=== PATIENT | male | born 1955 | race Caucasian/White ===

== ENCOUNTER 2021-11-07 19:03 | Inpatient (IN) ==
[2021-11-07] MEDS ORDERED: MULTI-VITAMIN INFUSION 10 ML, THIAMINE HCL 100 MG, FOLIC ACID 1 MG in SODIUM CHLORIDE 0... IV ONE (19:35)
--- NOTE | 2021-11-07 20:09 | XRay Report ---
XR chest 1V portable CLINICAL HISTORY: Atypical chest pain. COMPARISON STUDY: No previous studies for comparison. FINDINGS: Lung volumes are normal. Linear left basilar opacity suggests atelectasis. There is no pneu mothorax or pleural effusion. Cardiac size is at the upper limits of normal. Mediastinal contours are normal. There is no evidence for pulmonary edema. IMPRESSION: No acute cardiopulmonary findings. ACT 112: Negative or not required by law. Electronically signed by: Ronni Vazquez M.D. 11/07/2021 8:07 PM
[2021-11-07 20:26] LABS: Basophils # (auto) 0.02 K/uL (0-0.2); Basophils % (auto) 0.2 %; Eosinophils % (auto) 2.2 %; Hemoglobin 15.8 g/dL (14.0-18.0); Immature Granulocytes # (auto) 0.03 K/uL (0.00-0.02); Immature Granulocytes % (auto) 0.3 %; Lymphocytes # (auto) 1.03 K/uL (1.2-3.4); Lymphocytes % (auto) 11.1 %; Mean Corpuscular Hemoglobin 30.9 pg (25-34); Mean Corpuscular Hgb Conc 32.9 g/dL (32-36); Mean Corpuscular Volume 93.8 fL (80-100); Mean Platelet Volume 10.4 fL (7.4-10.4); Monocytes # (auto) 0.73 K/uL (0.11-0.59); Monocytes % (auto) 7.9 %; Neutrophils # (auto) 7.27 K/uL (1.4-6.5); Neutrophils % (auto) 78.3 %; Platelet Count 222 K/uL (130-400); RDW Coefficient of Variation 14.5 % (11.5-14.5); Red Blood Count 5.12 M/uL (4.7-6.1); White Blood Count 9.28 K/uL (4.8-10.8)
[2021-11-07 20:28] LABS: Prothrombin Time 10.9 Seconds (9.0-12.0)
[2021-11-07 20:34] LABS: Appearance Urine Cloudy (Clear); Bacteria Urine Automated Negative (Negative); Blood Urine 3+ (Negative); Color Urine Orange; Epithelial Cell Urine Auto >30 /lpf (0-5); Glucose Urine UA Negative (Negative); Ketones Urine 4+ (Negative); Leukocyte Esterase Urine 1+ (Negative); Nitrite Urine Positive (Negative); Protein Urine 2+ (Negative); RBC Urine Automated >30 /hpf (0-4); Specific Gravity Urine 1.035 (1.000-1.030); Urobilinogen Urine Positive (Negative); pH Urine 5.5 (4.5-7.5)
[2021-11-07] MEDS ORDERED: LORazepam 2 MG in SYRINGE 1 ML IV STA (20:35)
[2021-11-07] MEDS ORDERED: THIAMINE HCL 200 MG in SODIUM CHLORIDE 0.9% 50 ML IV STA (20:35)
[2021-11-07 20:39] LABS: Albumin Globulin Ratio 1.4 (0.9-2); Albumin Level 4.5 gm/dl (3.4-5.0); BUN Creatinine Ratio 43.2 (10-20); Bilirubin,Total 1.2 mg/dl (0.2-1.0); Calcium 9.9 mg/dl (8.5-10.1); Creatinine Clr Calc Pharmacy 114.5 ml/min; Est GFR (African American) 109.8 ml/min; Est GFR (Non-African American) 94.8 ml/min; Globulin 3.2 gm/dl (2.5-4.0); Magnesium 2.1 mg/dl (1.7-2.4); Potassium 3.6 mmol/L (3.5-5.1); Total Protein 7.7 gm/dl (6.0-8.3)
[2021-11-07 20:41] LABS: Troponin I High Sensitivity 3.6 pg/ml (0-20)
[2021-11-07 20:48] LABS: Bilirubin Urine 2+ (Negative)
[2021-11-07 21:18] LABS: Amphetamines+Metham, Urine Neg (Neg); Barbiturates, Urine Neg (Neg); Benzodiazepine, Urine Neg (Neg); Cocaine, Urine Neg (Neg); MDMA (Ecstacy), Urine Neg (Neg); Methadone, Urine Neg (Neg); Opiate, Urine Neg (Neg); Phencyclidine, Urine Neg (Neg)
[2021-11-07] MEDS ORDERED: OPTIRAY 320 100ml IV ONE (21:31)
[2021-11-07] MEDS ORDERED: cefTRIAXone SODIUM 2,000 MG/70 ML BAG IV STA (22:58)
--- NOTE | 2021-11-07 23:02 | Emergency Department Note ---
Impression & Plan Urinary retention, Urinary tract infection, Schizophrenia, Dehydration ED Provider Note NAME: FERNIE GASPAR AGE: 66 SEX: M ARRIVES VIA: Ambulance INFORMANT: Patient ED PROVIDER(S): Carlo Kramer MD CHIEF COMPLAINT: Weakness, referred. PLAN: Disposition: Admit MEDICAL DECISION MAKING: The patient is a 66-year-old gentleman with a past medical history of schizophrenia who presents to the emergency department from the [facility] for medical evaluation after presenting there appearing confused and diaphoretic following being accepted for psychiatric admission under 201 from [facility] where he presented initially for depression/worsening hallucinations and then transferred to the [facility] for [facility] treatment. During the patient's medical evaluation he was noted to have urinary retention and UTI and so Ortiz catheter was placed and was started on Bactrim. Thepatient is a poor historian regarding the details of his presentation. He denies any regular alcohol use. He denies any drug abuse including benzodiazepines. On arrival, the patient is fatigued/ill appearing, slightly diaphoretic, flat af fect. He is afebrile, HR 90-100s, and otherwise stable vital signs. He appears clinically dry. Has no focal neurologic deficits. EKG without overt acute ischemia. CXR negative for acute cardiopulmonary process. WBC, H/H, platelets wnl. Chemistry without acidosis. Lactate wnl. BUN/Cr > 40 c/w patient's clinically dry appearance. Electrolytes unremarkable. LFTs with Total bilirubin 1.2 and AST and ALT 56 and 57 respectively without prior for comparison. High-sensitivity troponin 3.6 wnl. Lipase wnl. Procalcitonin is not elevated. UA is c/w infection with Nitrites, WBCs, LE, and RBCs albeit with epitheleal cells and no bacteria, However insetting of being treated with Bactrim. Covid-19 RNA, NAAT negative. CT abd/pelvis demonstrates evidence of cystitis per preliminary [facility] report. Given patient's ill-appearance in the setting of his UTI, patient agrees with plan for admission for treatment before returning to the [facility]. Treatment initiated with CTX. Of note patient was given IVF with Banana bag and IV ativan for possible component of etoh withdrawal however patient continued to deny regular etoh use. Case was discussed with Dr. Altamirano, [facility] hospitalist who will evaluate the patient for admission. Triage Nursing notes reviewed and agree them. Prior medical records reviewed Vital Signs: reviewed and remarkable for tachycardia. Differential diagnosis: Infection, dehydration, metabolic abnormality, hypo/hyperglycemia, electrolyte disturbance, anemia, hypoxia, cardiac sources, intracerebral event, toxicologic, neurologic, as well as other pathologies. ER treatment provided: See below. Diagnostics interpreted by me: ECG: Sinus rhythm, 87 bpm, occasional pvcs, nonspecific ST and TWA, no overt ST elevation or depression. Cardiac Monitoring: An order for continuous cardiac monitoring was placed and demonstrated sinus rhythm, 87 bpm, occasional pvcs. Laboratory studies: See below Imaging studies: See below Preliminary Findings Only See Final Report For Complete Findings CT ABDOMEN & PELVIS With Contrast: Ortiz catheter within the bladder which appears thick-walled. Correlate for cystitis. No obstructive uropathy or evidence of pyelonephritis. Normal size of the prostate. Hepatic steatosis. Remainder of the organs are unremarkable. No acute abnormality along the GI tract. Radiologist: Robb Juan MD Study ready at 21:55 and initial results transmitted at 22:00 Consultation(s): Case was discussed with Dr. Altamirano, [facility] hospitalist who will evaluate the patient for admission. HPI: The patient is a 66-year-old gentleman with a past medical history of schizophrenia who presents to the emergency department from the [facility] for medical evaluation after presenting there appearing confused and diaphoretic following being accepted for psychiatric admission under 201 from [facility] where he presented initially for depression/worsening hallucinations and then transferred to the [facility] for [facility] treatment. During the patient's medical evaluation he was noted to have urinary retention and UTI and so Ortiz catheter was placed and was started on Bactrim. Thepatient is a poor historian regarding the details of his presentation. He denies any regular alcohol use. He denies any drug abuse including benzodiazepines. ROS: See above HPI for pertinent positives & negatives. A total of 10 systems reviewed and were otherwise negative. VITALS:See Below PHYSICAL EXAMINATION: GENERAL: Awake, alert, fatigued/ill-appearing, in no distress HENT: Normocephalic, atraumatic. Oropharynx with dry mucous membranes and otherwise unremarkable. EYES: Normal conjunctiva. Sclera non-icteric. NECK: Supple. No nuchal rigidity. FROM. No JVD. RESPIRATORY: Clear to auscultation. CARDIAC: Regular rate, normal rhythm. Extremities warm and well perfused. Pulses equal. ABDOMEN: Soft, non-distended. No tenderness to palpation. No rebound or guarding. No masses. RECTAL: Deferred. : Ortiz catheter in place. MUSCULOSKELETAL: Chest examination reveals no tenderness. The back is symmetri alexa on inspection without obvious abnormality. There is no CVA tenderness to palpation. No joint edema. LOWER EXTREMITIES: Calves are equal size bilaterally and non-tender. No edema. No discoloration. NEURO: Normal sensorium. No sensory or motor deficits noted. SKIN: Warm/diaphoretic. No rash or jaundice noted. PSYCH: Flat affect. 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 Beliefs That Will Affect Care: None Current Living Situation: Alone Other Information That Helps Us Care for You: No Feels Safe at Home: Yes Safety Concerns: Feels Safe At This Time Allergies Allergies Allergy/AdvReac Type Severity Reaction Status Date / Time No Known Allergies Allergy Verified 11/07/21 22:25 Home Meds Home Medications Medication Instructions Recorded Confirmed clozapine 100 mg tablet 200 mg PO 11/07/21 11/07/21 clozapine 50 mg tablet 50 mg PO QAM 11/07/21 11/07/21 folic acid 1 mg tablet 1 mg PO QAM 11/07/21 11/07/21 hydroxyzine HCl 50 mg tablet 50 mg PO QID PRN 11/07/21 11/07/21 mirtazapine 7.5 mg tablet 7.5 mg PO 11/07/21 11/07/21 multivitamin with folic acid 400 1 tab PO QAM 11/07/21 11/07/21 mcg tablet (Tab-A-Kimberley) simvastatin 20 mg tablet 40 mg PO 11/07/21 11/07/21 thiamine HCl (vitamin B1) 100 mg 100 mg PO QA 11/07/21 11/07/21 tablet venlafaxine 150 mg 300 mg PO QAM 11/07/21 11/07/21 capsule,extended release 24 hr Results & Data (ED) Vital Signs Vital Signs - 24 hr 11/07/21 19:15 11/07/21 19:57 11/07/21 20:00 Temperature 37.3 C Temperature Source Oral Pulse Rate 91 H Pulse Rate [Apical] 100 H Pulse Rhythm [Apical] Respiratory Rate 18 19 Respiratory Effort / Characteristics Respiratory Depth Blood Pressure 138/91 Blood Pressure [Right Arm] 147/78 H Blood Pressure Mean 106 Blood Pressure Mean [Right Arm] 101 Pulse Oximetry 95 95 98 Oxygen Delivery Method Room Air Room Air Room Air Sepsis Recent Fever Within 48 Hours No Sepsis New/Unexplained Change in Mental Status No Sepsis Action Taken by Nursing No Action Required 11/07/21 22:00 11/08/21 00:00 11/08/21 02:00 Temperature 36.0 C L Temperature Source Oral Pulse Rate Pulse Rate [Apical] 62 Pulse Rhythm [Apical] Regular Respiratory Rate 19 Respiratory Effort / Characteristics Non-Labored Non-Labored Non-Labored Respiratory Depth Normal Normal Normal Blood Pressure Blood Pressure [Right Arm] 115/78 Blood Pressure Mean Blood Pressure Mean [Right Arm] 90 Pulse Oximetry 98 Oxygen Delivery Method Room Air Sepsis Recent Fever Within 48 Hours Sepsis New/Unexplained Change in Mental Status Sepsis Action Taken by Nursing Laboratory Data Attestation: I reviewed the patient's lab results. Result diagrams: 11/07/21 19:50 11/07/21 19:50 Lab Results 11/07/21 11/07/21 11/07/21 Range/Units 19:50 19:50 19:50 WBC 9.28 (4.8-10.8) K/uL RBC 5.12 (4.7-6.1) M/uL Hgb 15.8 (14.0-18.0) g/dL Hct 48.0 (42-52) % MCV 93.8 (80-100) fL MCH 30.9 (25-34) pg MCHC 32.9 (32-36) g/dL RDW Std Deviation 50.0 H (36.4-46.3) fL RDW Coeff of Mai 14.5 (11.5-14.5) % Plt Count 222 (130-400) K/uL MPV 10.4 (7.4-10.4) fL Immature Gran % (Auto) 0.3 % Neut % (Auto) 78.3 % Lymph % (Auto) 11.1 % [place] % (Auto) 7.9 % Eos % (Auto) 2.2 % Baso % (Auto) 0.2 % Neut # (Auto) 7.27 H (1.4-6.5) K/uL Lymph # (Auto) 1.03 L (1.2-3.4) K/uL [place] # (Auto) 0.73 H (0.11-0.59) K/uL Eos # (Auto) 0.20 (0-0.5) K/uL Baso # (Auto) 0.02 (0-0.2) K/uL Immature Gran # (Auto) 0.03 H (0.00-0.02) K/uL PT 10.9 (9.0-12.0) Seconds INR 1.0 (0.9-1.1) Sodium 142 (136-145) mmol/L Potassium 3.6 (3.5-5.1) mmol/L Chloride 109 H (98-107) mmol/L Carbon Dioxide 20 L (21-32) mmol/L Anion Gap 13 H (3-11) BUN 32 H (6-23) mg/dl Creatinine 0.74 (0.6-1.4) mg/dl Est Cr Clr Drug Dosing 114.5 ml/min Est GFR ( Amer) 109.8 ml/min Est GFR (Non-Af Amer) 94.8 ml/min BUN/Creatinine Ratio 43.2 H (10-20) Glucose 102 H (70-99(Fasting)) mg/dl Lactate (0.4-2.0) mmol/L Calcium 9.9 (8.5-10.1) mg/dl Phosphorus 3.0 (2.5-4.9) mg/dl Magnesium 2.1 (1.7-2.4) mg/dl Total Bilirubin 1.2 H (0.2-1.0) mg/dl AST 56 H (13-39) U/L ALT 57 H (7-52) U/L Alkaline Phosphatase 39 (34-104) U/L Troponin I High Sens 3.6 (0-20) pg/ml Total Protein 7.7 (6.0-8.3) gm/dl Albumin 4.5 (3.4-5.0) gm/dl Globulin 3.2 (2.5-4.0) gm/dl Albumin/Globulin Ratio 1.4 (0.9-2) Lipase 17 (11-82) U/L Procalcitonin (0-0.5) ng/ml Urine Color Urine Appearance (Clear) Urine pH (4.5-7.5) Ur Specific [place] (1.000-1.030) Urine Protein (Negative) Urine Glucose (UA) (Negative) Urine Ketones (Negative) Urine Blood (Negative) Urine Nitrite (Negative) Urine Bilirubin (Negative) Urine Urobilinogen (Negative) Ur Leukocyte Esterase (Negative) Urine WBC (Auto) (0-5) /hpf Urine RBC (Auto) (0-4) /hpf U Hyaline Cast (Auto) (0-5) /lpf U Epithel Cells (Auto) (0-5) /lpf Urine Bacteria (Auto) (Negative) Urine Opiates Screen (Neg) Ur Methadone, Qual (Neg) Urine Barbiturates (Neg) Ur Phencyclidine (PCP) (Neg) U Amphetamin/Meth Scrn (Neg) MDMA (Ecstasy) Screen (Neg) U Benzodiazepines Scrn (Neg) Ur Cocaine Metabolite (Neg) U Marijuana (THC) Screen (Neg) Ethyl Alcohol mg/dL (<10.0) mg/dl SARS-CoV-2, RNA, NAAT (NEGATIVE) 11/07/21 11/07/21 11/07/21 Range/Units 19:50 19:50 19:50 WBC (4.8-10.8) K/uL RBC (4.7-6.1) M/uL Hgb (14.0-18.0) g/dL Hct (42-52) % MCV (80-100) fL MCH (25-34) pg MCHC (32-36) g/dL RDW Std Deviation (36.4-46.3) fL RDW Coeff of Mai (11.5-14.5) % Plt Count (130-400) K/uL MPV (7.4-10.4) fL Immature Gran % (Auto) % Neut % (Auto) % Lymph % (Auto) % [place] % (Auto) % Eos % (Auto) % Baso % (Auto) % Neut # (Auto) (1.4-6.5) K/uL Lymph # (Auto) (1.2-3.4) K/uL [place] # (Auto) (0.11-0.59) K/uL Eos # (Auto) (0-0.5) K/uL Baso # (Auto) (0-0.2) K/uL Immature Gran # (Auto) (0.00-0.02) K/uL PT (9.0-12.0) Seconds INR (0.9-1.1) Sodium (136-145) mmol/L Potassium (3.5-5.1) mmol/L Chloride (98-107) mmol/L Carbon Dioxide (21-32) mmol/L Anion Gap (3-11) BUN (6-23) mg/dl Creatinine (0.6-1.4) mg/dl Est Cr Clr Drug Dosing ml/min Est GFR ( Amer) ml/min Est GFR (Non-Af Amer) ml/min BUN/Creatinine Ratio (10-20) Glucose (70-99(Fasting)) mg/dl Lactate (0.4-2.0) mmol/L Calcium (8.5-10.1) mg/dl Phosphorus (2.5-4.9) mg/dl Magnesium (1.7-2.4) mg/dl Total Bilirubin (0.2-1.0) mg/dl AST (13-39) U/L ALT (7-52) U/L Alkaline Phosphatase (34-104) U/L Troponin I High Sens (0-20) pg/ml Total Protein (6.0-8.3) gm/dl Albumin (3.4-5.0) gm/dl Globulin (2.5-4.0) gm/dl Albumin/Globulin Ratio (0.9-2) Lipase (11-82) U/L Procalcitonin (0-0.5) ng/ml Urine Color Rhea Urine Appearance Cloudy A (Clear) Urine pH 5.5 (4.5-7.5) Ur Specific [place] 1.035 H (1.000-1.030) Urine Protein 2+ H (Negative) Urine Glucose (UA) Negative (Negative) Urine Ketones 4+ H (Negative) Urine Blood 3+ H (Negative) Urine Nitrite Positive A (Negative) Urine Bilirubin 2+ H (Negative) Urine Urobilinogen Positive H (Negative) Ur Leukocyte Esterase 1+ H (Negative) Urine WBC (Auto) 10-30 H (0-5) /hpf Urine RBC (Auto) >30 H (0-4) /hpf U Hyaline Cast (Auto) 5-10 H (0-5) /lpf U Epithel Cells (Auto) >30 H (0-5) /lpf Urine Bacteria (Auto) Negative (Negative) Urine Opiates Screen Neg (Neg) Ur Methadone, Qual Neg (Neg) Urine Barbiturates Neg (Neg) Ur Phencyclidine (PCP) Neg (Neg) U Amphetamin/Meth Scrn Neg (Neg) MDMA (Ecstasy) Screen Neg (Neg) U Benzodiazepines Scrn Neg (Neg) Ur Cocaine Metabolite Neg (Neg) U Marijuana (THC) Screen Neg (Neg) Ethyl Alcohol mg/dL < 10.0 (<10.0) mg/dl SARS-CoV-2, RNA, NAAT (NEGATIVE) 11/07/21 11/07/21 11/07/21 Range/Units 23:25 23:47 23:47 WBC (4.8-10.8) K/uL RBC (4.7-6.1) M/uL Hgb (14.0-18.0) g/dL Hct (42-52) % MCV (80-100) fL MCH (25-34) pg MCHC (32-36) g/dL RDW Std Deviation (36.4-46.3) fL RDW Coeff of Mai (11.5-14.5) % Plt Count (130-400) K/uL MPV (7.4-10.4) fL Immature Gran % (Auto) % Neut % (Auto) % Lymph % (Auto) % [place] % (Auto) % Eos % (Auto) % Baso % (Auto) % Neut # (Auto) (1.4-6.5) K/uL Lymph # (Auto) (1.2-3.4) K/uL [place] # (Auto) (0.11-0.59) K/uL Eos # (Auto) (0-0.5) K/uL Baso # (Auto) (0-0.2) K/uL Immature Gran # (Auto) (0.00-0.02) K/uL PT (9.0-12.0) Seconds INR (0.9-1.1) Sodium (136-145) mmol/L Potassium (3.5-5.1) mmol/L Chloride (98-107) mmol/L Carbon Dioxide (21-32) mmol/L Anion Gap (3-11) BUN (6-23) mg/dl Creatinine (0.6-1.4) mg/dl Est Cr Clr Drug Dosing ml/min Est GFR ( Amer) ml/min Est GFR (Non-Af Amer) ml/min BUN/Creatinine Ratio (10-20) Glucose (70-99(Fasting)) mg/dl Lactate 1.3 (0.4-2.0) mmol/L Calcium (8.5-10.1) mg/dl Phosphorus (2.5-4.9) mg/dl Magnesium (1.7-2.4) mg/dl Total Bilirubin (0.2-1.0) mg/dl AST (13-39) U/L ALT (7-52) U/L Alkaline Phosphatase (34-104) U/L Troponin I High Sens (0-20) pg/ml Total Protein (6.0-8.3) gm/dl Albumin (3.4-5.0) gm/dl Globulin (2.5-4.0) gm/dl Albumin/Globulin Ratio (0.9-2) Lipase (11-82) U/L Procalcitonin < 0.05 (0-0.5) ng/ml Urine Color Urine Appearance (Clear) Urine pH (4.5-7.5) Ur Specific [place] (1.000-1.030) Urine Protein (Negative) Urine Glucose (UA) (Negative) Urine Ketones (Negative) Urine Blood (Negative) Urine Nitrite (Negative) Urine Bilirubin (Negative) Urine Urobilinogen (Negative) Ur Leukocyte Esterase (Negative) Urine WBC (Auto) (0-5) /hpf Urine RBC (Auto) (0-4) /hpf U Hyaline Cast (Auto) (0-5) /lpf U Epithel Cells (Auto) (0-5) /lpf Urine Bacteria (Auto) (Negative) Urine Opiates Screen (Neg) Ur Methadone, Qual (Neg) Urine Barbiturates (Neg) Ur Phencyclidine (PCP) (Neg) U Amphetamin/Meth Scrn (Neg) MDMA (Ecstasy) Screen (Neg) U Benzodiazepines Scrn (Neg) Ur Cocaine Metabolite (Neg) U Marijuana (THC) Screen (Neg) Ethyl Alcohol mg/dL (<10.0) mg/dl SARS-CoV-2, RNA, NAAT NEGATIVE (NEGATIVE) Administered Medications Lactated Ringer's (Lr) 1,000 mls @ 80 mls/hr IV .[id number] ONE Stop: 11/08/21 11:48 Last Admin: 11/08/21 00:00 Dose: 80 mls/hr Documented by: [id number] Discontinued Medications Multivitamins 10 ml/ Thiamine HCl 100 mg/ Folic Acid 1 mg/Sodium Chloride 1,011.2 mls @ 1,011.2 mls/hr IV .Q1H ONE Stop: 11/07/21 20:34 Last Infusion: 11/07/21 21:05 Dose: 0 mls/hr Documented by: [id number] Admin: 11/07/21 20:03 Dose: 1,011.2 mls/hr Documented by: [id number] Thiamine HCl 200 mg/ Sodium (Chloride) 52 mls @ 208 mls/hr IV NOW STA Stop: 11/07/21 20:36 Last Infusion: 11/07/21 22:50 Dose: 0 mls/hr Documented by: [id number] Admin: 11/07/21 22:12 Dose: 208 mls/hr Documented by: [id number] Lorazepam 2 mg/ Syringe 2 mls @ 2 mls/min IV NOW STA Stop: 11/07/21 20:36 Last Admin: 11/07/21 20:40 Dose: 2 mls/min Documented by: [id number] Ceftriaxone Sodium (Rocephin) 2,000 mg in 70 mls @ 140 mls/hr IV NOW STA Stop: 11/07/21 23:27 Last Infusion: 11/08/21 01:15 Dose: 0 mls/hr Documented by: [id number] Admin: 11/08/21 00:39 Dose: 140 mls/hr Documented by: [id number] Cefepime HCl (Maxipime) 2,000 mg in 20 mls @ 5 mls/min IV NOW STA; Protocol Stop: 11/08/21 00:11 Last Admin: 11/08/21 00:39 Dose: 5 mls/min Documented by: [id number] Ioversol (Optiray 320 100ml) 95 ml IV ONCE ONE Stop: 11/07/21 21:32 Last Admin: 11/07/21 21:31 Dose: 95 ml Documented by: [id number] Imaging Data Radiologist's Impression: Chest X-Ray 11/07/21 19:34 XR chest 1V portable CLINICAL HISTORY: Atypical chest pain. COMPARISON STUDY: No previous studies for comparison. FINDINGS: Lung volumes are normal. Linear left basilar opacity suggests atelectasis. There is no pneumothorax or pleural effusion. Cardiac size is at the upper limits of normal. Mediastinal contours are normal. There is no evidence for pulmonary edema. IMPRESSION: No acute cardiopulmonary findings. ACT 112: Negative or not required by law. Electronically signed by: Ronni Vazquez M.D. 11/07/2021 8:07 PM Discharge Plan Visit Data Chief Complaint: Illness Discharge Problem: Urinary retention, Urinary tract infection, Schizophrenia, Dehydration Patient Disposition: Admitted As Inpatient Discharge Instructions Interventions: ED Discharge Assessment Last Done: 11/08/21 03:34 Discharge Problem: Urinary tract infection Qualifiers: Urinary tract infection type: site unspecified Hematuria presence: with hematuria Qualified Code(s): N39.0 - Urinary tract infection, site not specified Schizophrenia Qualifiers: Schizophrenia type: unspecified Qualified Code(s): F20.9 - Schizophrenia, unspecified
[2021-11-07] MEDS ORDERED: LACTATED RINGER'S 1,000 ML IV ONE (23:19)
[2021-11-08] MEDS ORDERED: CEFEPIME 2,000 MG/20 ML VIAL IV STA (00:08)
--- NOTE | 2021-11-08 02:37 | History & Physical Report ---
Date of Service November 08, 2021 Assessment & Plan (1) Complicated UTI (urinary tract infection): Plan: History urinary retention status post Ortiz catheter placement at [facility] ER No sepsis for now HTN, stable hyperlipidemia, statin Rx hx schizoaffective disorder, mood disorder - suboptimal, history medication compliance Alcohol abuse past tobacco abuse Med telemetry given propensity for alcohol withdrawal Urine CS, cefepime Urology consult Re: Urinary retention AWSS, DT precautions DVT Lovenox subcu Full code Text document was generated using dBMEDx voice recognition software. It may contain grammatical or spelling errors. Kindly contact undersigned for clarification of any documentation item in question. History of Present Illness Chief Complaint: Altered mental status as per records. Primary Care Provider: CRISSY Yan History obtained from patient and records. Medical history significant for HTN, hyperlipidemia, schizoaffective disorder, mood disorder, medication noncompliance, past tobacco abuse. Patient is a resident of [place], [place] brought to [facility] ER in [place], [place] 2 days ago by his daughter because of paranoia and command hallucinations. Patient has not been taking his psych meds for about 5 days as per daughter. Patient not drinking or eating as much. Patient denies suicidality. Patient complaint of urinary retention symptoms. Ortiz catheter placed at the ER. UA showed nitrites. Bactrim initiated for UTI. Patient subsequently transferred to the local [facility] for voluntary inpatient psychiatric care yesterday. Upon arrival at local psychiatric facility, patient noted to be confused and diaphoretic. Patient sent to ER for evaluation. IV ceftriaxone administered at the ER for UTI. Patient feels much clearer. Denies chest pain, shortness of breath, abdominal pain, flank pain, hematuria, fever, chills. No prior episodes of urine retention as per patient. Medical History as above Surgical History : Hernia repair Family History : Depression, DM Personal/Social history : Past tobacco abuse, ongoing alcohol use, prior work at a [employer] Allergies Allergy/AdvReac Type Severity Reaction Status Date / Time No Known Allergies Allergy Verified 11/07/21 22:25 Home Medications Medication Instructions Recorded Confirmed Type clozapine 100 mg tablet 200 mg PO HS 11/07/21 11/07/21 History clozapine 50 mg tablet 50 mg PO QAM 11/07/21 11/07/21 History folic acid 1 mg tablet 1 mg PO QAM 11/07/21 11/07/21 History hydroxyzine HCl 50 mg tablet 50 mg PO QID PRN 11/07/21 11/07/21 History mirtazapine 7.5 mg tablet 7.5 mg PO HS 11/07/21 11/07/21 History multivitamin with folic acid 400 1 tab PO QAM 11/07/21 11/07/21 History mcg tablet (Tab-A-Kimberley) simvastatin 20 mg tablet 40 mg PO HS 11/07/21 11/07/21 History thiamine HCl (vitamin B1) 100 mg 100 mg PO QAM 11/07/21 11/07/21 History tablet venlafaxine 150 mg 300 mg PO QAM 11/07/21 11/07/21 History capsule,extended release 24 hr Past Med/Surg History Medical History Hyperlipidemia Schizophrenia Urinary retention Family History Other Family history non-contributory Social History Smoking Status: Former smoker Hx Alcohol Use: Yes Alcohol type: beer Hx Substance Use: No Preferred Language: Occitan Communication Ability: Effective Hog Worker Required: No Beliefs That Will Affect Care: None Current Living Situation: Alone Other Information That Helps Us Care for You: No Feels Safe at Home: Yes Safety Concerns: Feels Safe At This Time Review of Systems Review of Systems: As per HPI, all other systems reviewed and negative Physical Exam Physical Exam: GENERAL: Comfortable, obese, no respiratory distress SKIN: Normal color, warm HEENT: [place] palpebral conjunctivae, no ptosis, dry buccal mucosa NECK : Supple, no tenderness CHEST : CTA, no tenderness HEART : RRR, no obvious murmurs ABDOMEN: Some distention, nontender EXTREMITIES : No LE swelling/tenderness, no other conspicuous deformities noted NEUROLOGIC : Coherent, no facial asymmetry, no other gross focality Results & Data Results & Data ([facility]) Vital Signs (Past 12 Hours) Vital Signs Temp Pulse Pulse Resp BP BP Pulse Ox 11/07/21 22:00 36.0 C L 62 19 115/78 98 11/07/21 20:00 100 H 19 147/78 H 98 11/07/21 19:57 95 06/21/22 19:15 37.3 C 91 H 18 138/91 95 Laboratory Results Laboratory Results WBC 9.28 K/uL (4.8-10.8) 11/07/21 19:50 RBC 5.12 M/uL (4.7-6.1) 11/07/21 19:50 Hgb 15.8 g/dL (14.0-18.0) 11/07/21 19:50 Hct 48.0 % (42-52) 11/07/21 19:50 MCV 93.8 fL (80-100) 11/07/21 19:50 MCH 30.9 pg (25-34) 11/07/21 19:50 MCHC 32.9 g/dL (32-36) 11/07/21 19:50 RDW Std Deviation 50.0 fL (36.4-46.3) H 11/07/21 19:50 RDW Coeff of Mai 14.5 % (11.5-14.5) 11/07/21 19:50 Plt Count 222 K/uL (130-400) 11/07/21 19:50 MPV 10.4 fL (7.4-10.4) 11/07/21 19:50 Immature Gran % (Auto) 0.3 % 11/07/21 19:50 Neut % (Auto) 78.3 % 11/07/21 19:50 Lymph % (Auto) 11.1 % 11/07/21 19:50 Lewis % (Auto) 7.9 % 11/07/21 19:50 Eos % (Auto) 2.2 % 11/07/21 19:50 Baso % (Auto) 0.2 % 11/07/21 19:50 Neut # (Auto) 7.27 K/uL (1.4-6.5) H 11/07/21 19:50 Lymph # (Auto) 1.03 K/uL (1.2-3.4) L 11/07/21 19:50 Lewis # (Auto) 0.73 K/uL (0.11-0.59) H 11/07/21 19:50 Eos # (Auto) 0.20 K/uL (0-0.5) 11/07/21 19:50 Baso # (Auto) 0.02 K/uL (0-0.2) 11/07/21 19:50 Immature Gran # (Auto) 0.03 K/uL (0.00-0.02) H 11/07/21 19:50 PT 10.9 Seconds (9.0-12.0) 11/07/21 19:50 INR 1.0 (0.9-1.1) 11/07/21 19:50 Sodium 142 mmol/L (136-145) 11/07/21 19:50 Potassium 3.6 mmol/L (3.5-5.1) 11/07/21 19:50 Chloride 109 mmol/L (98-107) H 11/07/21 19:50 Carbon Dioxide 20 mmol/L (21-32) L 11/07/21 19:50 Anion Gap 13 (3-11) H 11/07/21 19:50 BUN 32 mg/dl (6-23) H 11/07/21 19:50 Creatinine 0.74 mg/dl (0.6-1.4) 11/07/21 19:50 Est Cr Clr Drug Dosing 114.5 ml/min 11/07/21 19:50 Est GFR ( Amer) 109.8 ml/min 11/07/21 19:50 Est GFR (Non-Af Amer) 94.8 ml/min 11/07/21 19:50 BUN/Creatinine Ratio 43.2 (10-20) H 11/07/21 19:50 Glucose 102 mg/dl (70-99(Fasting)) H 11/07/21 19:50 Lactate 1.3 mmol/L (0.4-2.0) 11/07/21 23:47 Calcium 9.9 mg/dl (8.5-10.1) 11/07/21 19:50 Phosphorus 3.0 mg/dl (2.5-4.9) 11/07/21 19:50 Magnesium 2.1 mg/dl (1.7-2.4) 11/07/21 19:50 Total Bilirubin 1.2 mg/dl (0.2-1.0) H 11/07/21 19:50 AST 56 U/L (13-39) H 11/07/21 19:50 ALT 57 U/L (7-52) H 11/07/21 19:50 Alkaline Phosphatase 39 U/L (34-104) 11/07/21 19:50 Troponin I High Sens 3.6 pg/ml (0-20) 11/07/21 19:50 Total Protein 7.7 gm/dl (6.0-8.3) 11/07/21 19:50 Albumin 4.5 gm/dl (3.4-5.0) 11/07/21 19:50 Globulin 3.2 gm/dl (2.5-4.0) 11/07/21 19:50 Albumin/Globulin Ratio 1.4 (0.9-2) 11/07/21 19:50 Lipase 17 U/L (11-82) 11/07/21 19:50 Procalcitonin < 0.05 ng/ml (0-0.5) 11/07/21 23:47 Urine Color [place] 11/07/21 19:50 Urine Appearance Cloudy (Clear) A 11/07/21 19:50 Urine pH 5.5 (4.5-7.5) 11/07/21 19:50 Ur Specific [place] 1.035 (1.000-1.030) H 11/07/21 19:50 Urine Protein 2+ (Negative) H 11/07/21 19:50 Urine Glucose (UA) Negative (Negative) 11/07/21 19:50 Urine Ketones 4+ (Negative) H 11/07/21 19:50 Urine Blood 3+ (Negative) H 11/07/21 19:50 Urine Nitrite Positive (Negative) A 11/07/21 19:50 Urine Bilirubin 2+ (Negative) H 11/07/21 19:50 Urine Urobilinogen Positive (Negative) H 11/07/21 19:50 Ur Leukocyte Esterase 1+ (Negative) H 11/07/21 19:50 Urine WBC (Auto) 10-30 /hpf (0-5) H 11/07/21 19:50 Urine RBC (Auto) >30 /hpf (0-4) H 11/07/21 19:50 U Hyaline Cast (Auto) 5-10 /lpf (0-5) H 11/07/21 19:50 U Epithel Cells (Auto) >30 /lpf (0-5) H 11/07/21 19:50 Urine Bacteria (Auto) Negative (Negative) 11/07/21 19:50 Urine Opiates Screen Neg (Neg) 11/07/21 19:50 Ur Methadone, Qual Neg (Neg) 11/07/21 19:50 Urine Barbiturates Neg (Neg) 11/07/21 19:50 Ur Phencyclidine (PCP) Neg (Neg) 11/07/21 19:50 U Amphetamin/Meth Scrn Neg (Neg) 11/07/21 19:50 MDMA (Ecstasy) Screen Neg (Neg) 11/07/21 19:50 U Benzodiazepines Scrn Neg (Neg) 11/07/21 19:50 Ur Cocaine Metabolite Neg (Neg) 11/07/21 19:50 U Marijuana (THC) Screen Neg (Neg) 11/07/21 19:50 Ethyl Alcohol mg/dL < 10.0 mg/dl (<10.0) 11/07/21 19:50 SARS-CoV-2, RNA, NAAT NEGATIVE (NEGATIVE) 11/07/21 23:25 Impressions Chest X-Ray 11/07/21 19:34 XR chest 1V portable CLINICAL HISTORY: Atypical chest pain. COMPARISON STUDY: No previous studies for comparison. FINDINGS: Lung volumes are normal. Linear left basilar opacity suggests atelectasis. There is no pneumothorax or pleural effusion. Cardiac size is at the upper limits of normal. Mediastinal contours are normal. There is no evidence for pulmonary edema. IMPRESSION: No acute cardiopulmonary findings. ACT 112: Negative or not required by law. Electronically signed by: Ronni Vazquez M.D. 11/07/2021 8:[address] of the pelvis initial read: Ortiz catheter within the bladder which appears thick-walled. Correlate for cystitis. No obstructive uropathy or evidence of pyelonephritis. Normal size of the prostate. Hepatic steatosis. Remainder of the organs are unremarkable. No acute abnormality along the GI tract. EKG as per my interpretation : Rate 85, NSR, LAD, LAFB, no ischemia
[2021-11-08] MEDS ORDERED: LORazepam 1 MG in SYRINGE 0.5 ML IV PRN (03:36)
[2021-11-08] MEDS ORDERED: LORazepam 2 MG in SYRINGE 1 ML IV PRN (03:36)
[2021-11-08] MEDS ORDERED: oxyCODONE HCL IR 5 MG TAB (IMMEDIATE RELEASE) PO PRN (03:36)
[2021-11-08] MEDS ORDERED: ATIVAN IV ALCOHOL WITHDRAWL IV PRN (03:36)
[2021-11-08] MEDS ORDERED: LORazepam 3 MG in SYRINGE 1.5 ML IV PRN (03:36)
[2021-11-08] MEDS ORDERED: ACETAMINOPHEN 325 MG TAB PO PRN (03:36)
[2021-11-08] MEDS ORDERED: PNEUMOCOCCAL POLYSACCHARIDES 25 MCG/0.5 ML VIAL/SYR IM ONE (06:01)
[2021-11-08] MEDS ORDERED: INFLUENZA VACCINE HIGH DOSE PF 65+ 0.7 ML SYR IM ONE (06:01)
--- NOTE | 2021-11-08 06:14 | Urology Consultation ---
Date of Consultation November 08, 2021 Assessment & Plan (1) Urinary retention: Patient has been admitted by the medical service. Concerning his urinary retention rectal proceeding as follows: Because of his retention is unclear at this time but could be multifactorial. It appears that the patient may have a urinary tract infection and he is being treated with antibiotics in the form of cefepime. Urine culture has been sent we will follow for the results of this at which time his antibiotics can be tailored based on the results. The patient has a history of schizophrenia and takes numerous psychiatric medications which may be contributing Would recommend continuing bladder rest for the present time but consideration can be given to performing a voiding trial prior to patient's discharge Supervising Physician Co-Signing Physician Notes Discussed patient with GUILLERMINA. Agree with plan. History of Present Illness Reason for Consultation: Urinary retention Attending Physician: Priti Yoon, History of Present Illness Is a 66-year-old male who is presented to the emergency department secondary to worsening confusion. Patient was previously at the [facility] where he was apparently being treated for schizophrenia. Patient was found to be in urinary retention in the emergency department so Ortiz catheter was placed without difficulty. The patient could not provide much details concerning his medical history. I did question him about urinary symptoms and to the best of his knowledge he has not had any difficulty urinating in the past. He denies any decreased urine stream or difficulty initiating urine flow. He does feel in the past when he would urinate he would empty his bladder completely. He denies any recent dysuria or hematuria. In the emergency department patient had labs and imaging which independent reviewed. CT scan of the abdomen pelvis showed no evidence of pyelonephritis or obstructive uropathy. Prostate gland did appear normal in size on the study. Ortiz cath noted in the bladder and the bladder. The bladder did appear thick- walled. Chest x-ray did not show any evidence of pneumonia. CBC revealed white blood cell count, hemoglobin, hematocrit, and platelet count were all normal. Chemistry profile showed sodium and potassium are normal, as was his creatinine. BUN had a slight elevation at 32. Urinalysis was concerning for urinary tract infection as patient's urine was cloudy and was positive for nitrite as well as 1+ positive for leukocyte Estrace. There were 10-30 white blood cells per high- power field on the study but no bacteria. A toxicology screen was negative for substances tested and a COVID test was negative. At the time of my exam he is resting comfortably in bed in no distress. Allergies Allergy/AdvReac Type Severity Reaction Status Date / Time No Known Allergies Allergy Verified 11/07/21 22:25 Home Medications Medication Instructions Recorded Confirmed Type clozapine 100 mg tablet 200 mg PO HS 11/07/21 11/07/21 History clozapine 50 mg tablet 50 mg PO QAM 11/07/21 11/07/21 History folic acid 1 mg tablet 1 mg PO QAM 11/07/21 11/07/21 History hydroxyzine HCl 50 mg tablet 50 mg PO QID PRN 11/07/21 11/07/21 History mirtazapine 7.5 mg tablet 7.5 mg PO HS 11/07/21 11/07/21 History multivitamin with folic acid 400 1 tab PO QAM 11/07/21 11/07/21 History mcg tablet (Tab-A-Kimberley) simvastatin 20 mg tablet 40 mg PO HS 11/07/21 11/07/21 History thiamine HCl (vitamin B1) 100 mg 100 mg PO QAM 11/07/21 11/07/21 History tablet venlafaxine 150 mg 300 mg PO QAM 11/07/21 11/07/21 History capsule,extended release 24 hr Patient History Medical History Hyperlipidemia Schizophrenia Urinary retention Family History Other Family history non-contributory Social History Smoking Status: Former smoker Hx Alcohol Use: Yes Alcohol type: beer Hx Substance Use: No Preferred Language: Yakut Communication Ability: Effective Marketing Teacher Required: No Beliefs That Will Affect Care: None Current Living Situation: Alone Other Information That Helps Us Care for You: No Feels Safe at Home: Yes Safety Concerns: Feels Safe At This Time Review of Systems Constitutional: no fever Eyes: no eye pain Ear, Nose, Mouth, Throat: no ear pain Respiratory: no dyspnea Cardiovascular: no chest pain with activity Gastrointestinal: no abdominal pain, no nausea and no vomiting Genitourinary: + as per Subjective / HPI Integumentary: no rash Neurologic: no localized weakness Physical Exam Constitutional: WD/WN, vitals as above Eyes: no conjunctival abnormality ENMT: Ears: no hearing impairment Mouth: no oropharynx abnormality Neck: trachea midline Respiratory: normal respiratory effort; no respiratory distress and no labored breathing Cardiovascular: Rate/Rhythm: regular rate and regular rhythm Gastrointestinal (Abdomen): Soft, nonrigid, nontender to palpation. Musculoskeletal: No calf tenderness Skin: no rashes Neurologic: moves all extremities Results & Data ([facility]) Vital Signs (Past 12 Hours) Vital Signs Temp Pulse Pulse Pulse Resp BP BP 11/08/21 03:30 36.7 C 55 L 18 121/74 11/07/21 22:00 36.0 C L 62 19 115/78 11/07/21 20:00 100 H 19 147/78 H 11/07/21 19:57 11/07/21 19:15 37.3 C 91 H 18 138/91 Pulse Ox 11/08/21 03:30 97 11/07/21 22:00 98 11/07/21 20:00 98 11/07/21 19:57 95 11/07/21 19:15 95 PG Care Time/CCT Total # of Minutes Spent Total Time Spent with Patient: Total time spent is greater than 50% in coordination of care (as documented) at patient's floor/unit and/or counseling patient: Coding Level of Care Code 65570 Inpt Consult Level 5 Diagnoses Urinary retention R33.9
[2021-11-08 06:59] LABS: Albumin Level 4.1 gm/dl (3.4-5.0); BUN Creatinine Ratio 45.9 (10-20); Bilirubin Direct 0.3 mg/dl (0-0.2); Calcium 9.2 mg/dl (8.5-10.1); Creatinine Clr Calc Pharmacy 138.7 ml/min; Est GFR (African American) 118.9 ml/min; Est GFR (Non-African American) 102.6 ml/min; Potassium 3.8 mmol/L (3.5-5.1); Total Protein 7.1 gm/dl (6.0-8.3)
[2021-11-08 07:36] LABS: Basophils # (auto) 0.02 K/uL (0-0.2); Basophils % (auto) 0.3 %; Eosinophils # (auto) 0.25 K/uL (0-0.5); Eosinophils % (auto) 3.2 %; Hemoglobin 14.3 g/dL (14.0-18.0); Immature Granulocytes # (auto) 0.05 K/uL (0.00-0.02); Immature Granulocytes % (auto) 0.6 %; Lymphocytes # (auto) 1.05 K/uL (1.2-3.4); Lymphocytes % (auto) 13.6 %; Mean Corpuscular Hgb Conc 33.3 g/dL (32-36); Mean Corpuscular Volume 93.1 fL (80-100); Mean Platelet Volume 10.2 fL (7.4-10.4); Monocytes # (auto) 0.87 K/uL (0.11-0.59); Monocytes % (auto) 11.2 %; Neutrophils % (auto) 71.1 %; Platelet Count 187 K/uL (130-400); RDW Coefficient of Variation 14.4 % (11.5-14.5); Red Blood Count 4.62 M/uL (4.7-6.1); White Blood Count 7.74 K/uL (4.8-10.8)
[2021-11-08] MEDS: CEFEPIME 2,000 MG in SYRINGE 0 ML IV SCH ×2 (07:53→16:46)
[2021-11-08] MEDS: cloZAPine 25 MG TAB PO SCH (07:58)
[2021-11-08] MEDS: MULTIVITAMIN TAB PO SCH (07:58)
[2021-11-08] MEDS: FOLIC ACID 1 MG TAB PO SCH (07:58)
[2021-11-08] MEDS: VENLAFAXINE HCL XR 150 MG CAPXR PO SCH (07:58)
[2021-11-08] MEDS: THIAMINE HCL 100 MG TAB PO SCH (07:58)
[2021-11-08] MEDS: ENOXAPARIN INJ 40 MG/0.4 ML SYR SQ SCH (07:59)
--- NOTE | 2021-11-08 08:22 | CT Scan Report ---
CT abd pelvis IV con only CLINICAL HISTORY: urinary retention, UTI, weakness TECHNIQUE: Helical axial images of the abdomen and pelvis were obtained and displayed. Automated dose lowering techniques and/or adjustment according to patient size were utilized for this exam. This e xam was performed with intravenous contrast. CT DOSE: 846.87 mGy.cm COMPARISON: None available at the time of this dictation. FINDINGS: Lower chest: Bibasilar atelectasis versus scarring is seen. Liver: Hepatic steatosis is noted. Gallbladder and biliary tree: No calcified gallstones. Normal caliber wall. No intra- or extrahepatic biliary ductal dilation. Pancreas: Unremarkable, no focal lesions. Spleen: Unremarkable. Adrenals: Unremarkable. Kidneys and ureters: Unremarkable. Bladder: Ortiz catheter is seen. There is prominence of the gallbladder wall. Reproductive organs: Unremarkable. Bowel: Unremarkable appearance of the bowel. The appendix is normal. Lymph nodes Retroperitoneal: Unremarkable. Mesenteric: Unremarkable. Pelvic: Unremarkable. Peritoneum: Normal. Vessels: Atherosclerotic calcifications are seen. Abdominal wall: Unremarkable. Bones: Unremarkable. IMPRESSION: Bladder is under distended with a Ortiz catheter. Thickening of the bladder may be simply due to unde rdistention, however an element of cystitis cannot be excluded. No evidence of pyelonephritis or obst ruction. ACT 112: Negative or not required by law. Electronically signed by: Chon Barrios M.D. 11/08/2021 8:21 AM
--- NOTE | 2021-11-08 11:57 | Electrocardiogram Report ---
Test Reason : Blood Pressure : / mmHG Vent. Rate : 087 BPM Atrial Rate : 087 BPM P-R Int : 164 ms QRS Dur : 082 ms QT Int : 374 ms P-R-T Axes : 039 -27 037 degrees QTc Int : 450 ms Sinus rhythm with occasional Premature ventricular complexes Nonspecific ST and T wave abnormality Abnormal ECG No previous ECGs available Confirmed by Jamal Amador ([id number]) on 11/08/2021 11:57:16 AM Referred By: REFERRED SELF Confirmed By:Jamal Amador
--- NOTE | 2021-11-08 13:50 | Hospitalist Progress Note ---
Date of Service November 08, 2021 Assessment & Plan (1) Complicated UTI (urinary tract infection): Plan: History urinary retention status post Valle catheter placement at [facility] ER 2/2 uti-continues on ceftriaxone for now will obtain urine results from outside ER when available Urology saw patient and suggested some causes for the AUR in addition to the infection. Cont current treatment, no sepsis present and patient improved. (2) Acute urinary retention: Plan: Valle in place. Cont abx. (3) Schizophrenia: Plan: chronic, worsened recently including hallucination and paranoia. Sent to [facility] psychiatric facility recently. Admits to worsened depression symptoms, promise over the past week. Cont current therapy including Effexor, Mirtazapine and Clozapine. (4) Dehydration: Plan: Not drinking or eating much. Starting IVF. (5) DVT prophylaxis: Plan: Lovenox Full Code Dispo-cont hospital stay pending clinical improvement. [facility] Admission and Anticipated Discharge Date Admission Date: November 08, 2021 Subjective 66 yo M with known UTI on Bactrim found two days ago had a valle catheter placed for acute urinary retention. He was transferred to the [facility] inpatient care voluntarily. When he arrived, he was noted to be confused and diaphoretic and was sent back to the ER for evaluation. He continues on IV ceftriaxone and appears improved. Valle still intact and darker yellow urine. Pt not eating or drinking much 2/2 lack of appetite. Starting IVF now. He denies any confusion and per primary nurse is not hallucinating today or demonstrating paranoia. Appears comfortable. Review of Systems Review of Systems: All systems were reviewed and negative except as indicated on subjective above. Physical Exam Physical Exam: CONSTITUTIONAL: WNWD, vitals as above, generally well-appearin g, NAD EYES: normal conjunctivae, no scleral icterus ENT: external ear and nose normal, MMM NECK: trachea midline, RESPIRATORY: clear to auscultation bilaterally, no crackles, rales or wheezes, normal respiratory effort CARDIOVASCULAR: regular rate and rhythm, S1 and 2 heard without murmurs, gallops or rubs, no JVD, no peripheral edema CHEST: inspection of chest was normal GASTROINTESTINAL: soft, nontender, ND, no guarding MUSCULOSKELETAL: strength 5/5 throughout, head is normocephalic and atraumatic, SKIN: warm and dry, NEUROLOGIC: CN 2-12 grossly intact, no sensory deficit, normal cognition, normal speech, no tremor PSYCHIATRIC: alert cooperative and oriented to person, place and time. Results & Data Results & Data ([facility]) Vital Signs (Past 12 Hours) Vital Signs Temp Pulse Pulse Resp BP Pulse Ox 11/08/21 11:18 36.8 C 68 18 100/60 93 11/08/21 08:52 65 11/08/21 07:19 36.5 C 66 16 124/70 96 11/08/21 03:40 73 11/08/21 03:30 36.7 C 55 L 18 121/74 97 Laboratory Results Short CBC 11/07/21 11/08/21 11/08/21 Range/Units 19:50 06:30 07:14 WBC 9.28 Cancelled 7.74 (4.8-10.8) K/uL Hgb 15.8 Cancelled 14.3 (14.0-18.0) g/dL Hct 48.0 Cancelled 43.0 (42-52) % Plt Count 222 Cancelled 187 (130-400) K/uL BMP 11/07/21 11/08/21 19:50 06:30 Sodium 142 144 Potassium 3.6 3.8 Chloride 109 H 111 H Carbon Dioxide 20 L 23 BUN 32 H 28 H Creatinine 0.74 0.61 Glucose 102 H 88 Calcium 9.9 9.2 Liver Function 11/07/21 11/08/21 Range/Units 19:50 06:30 Total Bilirubin 1.2 H 1.0 (0.2-1.0) mg/dl Direct Bilirubin 0.3 H (0-0.2) mg/dl AST 56 H 47 H (13-39) U/L ALT 57 H 51 (7-52) U/L Alkaline Phosphatase 39 35 (34-104) U/L Albumin 4.5 4.1 (3.4-5.0) gm/dl Urine 11/07/21 Range/Units 19:50 Urine Color [place] Urine Appearance Cloudy A (Clear) Urine pH 5.5 (4.5-7.5) Ur Specific [place] 1.035 H (1.000-1.030) Urine Protein 2+ H (Negative) Urine Glucose (UA) Negative (Negative) Diagnostic Findings Abdomen/Pelvis CT 11/07/21 19:36 CT abd pelvis IV con only CLINICAL HISTORY: urinary retention, UTI, weakness TECHNIQUE: Helical axial images of the abdomen and pelvis were obtained and displayed. Automated dose lowering techniques and/or adjustment according to patient size were utilized for this exam. This exam was performed with intravenous contrast. CT DOSE: 846.87 mGy.cm COMPARISON: None available at the time of this dictation. FINDINGS: Lower chest: Bibasilar atelectasis versus scarring is seen. Liver: Hepatic steatosis is noted. Gallbladder and biliary tree: No calcified gallstones. Normal caliber wall. No intra- or extrahepatic biliary ductal dilation. Pancreas: Unremarkable, no focal lesions. Spleen: Unremarkable. Adrenals: Unremarkable. Kidneys and ureters: Unremarkable. Bladder: Valle catheter is seen. There is prominence of the gallbladder wall. Reproductive organs: Unremarkable. Bowel: Unremarkable appearance of the bowel. The appendix is normal. Lymph nodes Retroperitoneal: Unremarkable. Mesenteric: Unremarkable. Pelvic: Unremarkable. Peritoneum: Normal. Vessels: Atherosclerotic calcifications are seen. Abdominal wall: Unremarkable. Bones: Unremarkable. IMPRESSION: Bladder is under distended with a Valle catheter. Thickening of the bladder may be simply due to underdistention, however an element of cystitis cannot be excluded. No evidence of pyelonephritis or obstruction. ACT 112: Negative or not required by law. Electronically signed by: Chon Barrios M.D. 11/08/2021 8:21 AM Medications Administered Current Inpatient Medications Acetaminophen (Acetaminophen 325 Mg Tab) 325 mg PO Q6H PRN PRN Reason: Mild Pain Stop: 12/08/21 03:35 Clozapine (Clozapine 100 Mg Tab) 200 mg PO [facility] Stop: 12/08/21 20:59 Clozapine (Clozapine 25 Mg Tab) 50 mg PO [facility] Stop: 12/08/21 08:59 Last Admin: 11/08/21 07:58 Dose: 50 mg Documented by: Enoxaparin Sodium (Enoxaparin Inj 40 Mg/0.4 Ml Syr) 40 mg SQ QAM [facility] Stop: 12/08/21 08:59 Last Admin: 11/08/21 07:59 Dose: 40 mg Documented by: Folic Acid (Folic Acid 1 Mg Tab) 1 mg PO QAM [facility] Stop: 12/08/21 08:59 Last Admin: 11/08/21 07:58 Dose: 1 mg Documented by: Cefepime HCl 2,000 mg/ Syringe 20 mls @ 5 mls/min IV Q8H [facility]; Protocol Stop: 11/18/21 08:59 Last Admin: 11/08/21 07:53 Dose: 5 mls/min Documented by: Lorazepam 1 mg/ Syringe 1 mls @ 2 mls/min IV UD PRN; Protocol PRN Reason: EtOH Withdrawal AWSS Score 6,7 Stop: 12/08/21 03:35 Lorazepam 2 mg/ Syringe 2 mls @ 2 mls/min IV UD PRN; Protocol PRN Reason: EtOH Withdrawal AWSS Score 8,9 Stop: 12/08/21 03:35 Lorazepam 3 mg/ Syringe 3 mls @ 2 mls/min IV ONCE PRN; Protocol PRN Reason: EtOH Withdrawal AWSS Score >=10 Stop: 12/08/21 03:35 Mirtazapine (Mirtazapine Tab 15 Mg Tab) 7.5 mg PO [facility] Stop: 12/08/21 20:59 Multivitamins (Multivitamin Tab) 1 tab PO [facility] Stop: 12/08/21 08:59 Last Admin: 11/08/21 07:58 Dose: 1 tab Documented by: Oxycodone HCl (Oxycodone Hcl Ir 5 Mg Tab (Immediate Release)) 5 mg PO Q4H PRN PRN Reason: Pain Stop: 11/22/21 03:35 Simvastatin (Simvastatin 40 Mg Tab) 40 mg PO [facility] Stop: 12/08/21 20:59 Thiamine HCl (Th[facility]amine Hcl 100 Mg Tab) [facility] Stop: 12/08/21 08:59 Last Admin: 11/08/21 07:58 Dose: 100 mg Documented by: Venlafaxine HCl (Venlafaxine Hcl Xr 150 Mg Capxr) 300 mg PO [facility] Stop: 12/08/21 08:59 Last Admin: 11/08/21 07:58 Dose: 300 mg Documented by: (1) Schizophrenia Schizophrenia type: unspecified Qualified Code(s): F20.9 - Schizophrenia, unspecified
[2021-11-08] MEDS ORDERED: D5W AND 1/2NSS + 20MEQ KCL 20 MEQ/1,000 ML BAG IV SCH (17:30)
[2021-11-08] MEDS: D5W AND NSS 1,000 ML IV SCH (18:22)
[2021-11-08] MEDS ORDERED: hydrOXYzine HCl 25 MG TAB PO PRN (19:32)
[2021-11-08] MEDS: SIMVASTATIN 40 MG TAB PO SCH (20:01)
[2021-11-08] MEDS: MIRTAZAPINE TAB 15 MG TAB PO SCH (20:01)
[2021-11-08] MEDS: cloZAPine 100 MG TAB PO SCH (20:55)
[2021-11-09] MEDS: CEFEPIME 2,000 MG in SYRINGE 0 ML IV SCH ×3 (00:15→16:18)
[2021-11-09] MEDS: D5W AND NSS 1,000 ML IV SCH ×3 (04:49→23:22)
[2021-11-09 07:19] LABS: Hematocrit (blood only) 40.8 % (42-52); Hemoglobin 13.5 g/dL (14.0-18.0); Mean Corpuscular Hemoglobin 30.5 pg (25-34); Mean Corpuscular Hgb Conc 33.1 g/dL (32-36); Mean Corpuscular Volume 92.3 fL (80-100); Mean Platelet Volume 10.2 fL (7.4-10.4); Platelet Count 198 K/uL (130-400); RDW Coefficient of Variation 14.1 % (11.5-14.5); RDW Standard Deviation 47.9 fL (36.4-46.3); Red Blood Count 4.42 M/uL (4.7-6.1); White Blood Count 5.73 K/uL (4.8-10.8)
[2021-11-09] MEDS: ENOXAPARIN INJ 40 MG/0.4 ML SYR SQ SCH (07:31)
[2021-11-09] MEDS: cloZAPine 25 MG TAB PO SCH (07:32)
[2021-11-09] MEDS: MULTIVITAMIN TAB PO SCH (07:32)
[2021-11-09] MEDS: VENLAFAXINE HCL XR 150 MG CAPXR PO SCH (07:32)
[2021-11-09] MEDS: FOLIC ACID 1 MG TAB PO SCH (07:32)
[2021-11-09] MEDS: THIAMINE HCL 100 MG TAB PO SCH (07:33)
[2021-11-09 07:45] LABS: BUN Creatinine Ratio 39.7 (10-20); Calcium 8.9 mg/dl (8.5-10.1); Creatinine Clr Calc Pharmacy 145.9 ml/min; Est GFR (African American) 121.4 ml/min; Est GFR (Non-African American) 104.8 ml/min; Potassium 3.2 mmol/L (3.5-5.1)
--- NOTE | 2021-11-09 16:26 | Hospitalist Progress Note ---
Date of Service November 09, 2021 Assessment & Plan (1) Complicated UTI (urinary tract infection): Plan: History urinary retention status post Valle catheter placement at [facility] ER 2/ uti-continues on ceftriaxone for now Urine culture from [place] ER reveals no growth after two days switch to cefdinir remove urinary catheter and encourage ambulation-TOV overnight monitor closely for urinary retention Needs to get over to inpatient treatment for his severe depression. (2) Acute urinary retention: Plan: Valle in place. Cont abx. TOV today (3) Schizophrenia: Plan: chronic, worsened recently including hallucination and paranoia. Sent to [facility] psychiatric facility prior to arrival. Admits to worsened depression symptoms, promise over the past week. Cont current therapy including Effexor, Mirtazapine and Clozapine. (4) Dehydration: Plan: Not drinking or eating much. Cont IVF. Lack of appetite seems to be related to depression (5) Alcohol abuse: Plan: Reported on scanned history taken at outside ER. Per daughter, she reports that father has a tendency to abuse alcohol. There are no signs/symptoms of withdrawal at this time. (6) DVT prophylaxis: Plan: Lovenox Full Code Dispo-cont hospital stay pending clinical improvement. Priti Yoon DO [facility] Hospitalist Admission and Anticipated Discharge Date Admission Date: November 08, 2021 Subjective 66 yo M with known UTI on Bactrim found two days ago had a valle catheter placed for acute urinary retention. He was transferred to the [facility] inpatient care voluntarily. When he arrived, he was noted to be confused and diaphoretic and was sent back to the ER for evaluation. Pt is flat and states he is doing fine Denies pain or fever, Still no appetite and reports hasn't tried any food or gotten out of bed today. TOV, utilize incentive spirometer. OOB is encouraged. Discussed this with his nurse. Review of Systems Review of Systems: All systems were reviewed and negative except as indicated above. Physical Exam Physical Exam: CONSTITUTIONAL: WNWD, vitals as above, generally well- appearing, NAD EYES: normal conjunctivae, no scleral icterus ENT: external ear and nose normal, MMM NECK: trachea midline, RESPIRATORY: clear to auscultation bilaterally, no crackles, rales or wheezes, normal respiratory effort CARDIOVASCULAR: regular rate and rhythm, S1 and 2 heard without murmurs, ga llops or rubs, no JVD, no peripheral edema CHEST: inspection of chest was normal GASTROINTESTINAL: soft, nontender, ND, no guarding MUSCULOSKELETAL: strength 5/5 throughout, head is normocephalic and atraumatic, SKIN: warm and dry, NEUROLOGIC: CN 2-12 grossly intact, no sensory deficit, normal cognition, normal speech, no tremor PSYCHIATRIC: alert cooperative and oriented to person, place and time. Results & Data Results & Data ([facility]) Vital Signs (Past 12 Hours) Vital Signs Temp Pulse Resp BP Pulse Ox 11/09/21 14:23 36.8 C 77 16 114/71 93 11/09/21 06:49 36.5 C 76 18 123/75 94 Laboratory Results Short CBC 11/09/21 Range/Units 06:46 WBC 5.73 (4.8-10.8) K/uL Hgb 13.5 L (14.0-18.0) g/dL Hct 40.8 L (42-52) % Plt Count 198 (130-400) K/uL BMP 11/09/21 06:46 Sodium 142 Potassium 3.2 L Chloride 112 H Carbon Dioxide 24 BUN 23 Creatinine 0.58 L Glucose 118 H Calcium 8.9 Medications Administered Current Inpatient Medications Acetaminophen (Acetaminophen 325 Mg Tab) 325 mg PO Q6H PRN PRN Reason: Mild Pain Stop: 12/08/21 03:35 Cefdinir (Cefdinir 300 Mg Cap) 300 mg PO BID [facility] Stop: 11/14/21 20:59 Clozapine (Clozapine 100 Mg Tab) 200 mg PO HS [facility] Stop: 12/08/21 20:59 Last Admin: 11/08/21 20:55 Dose: 200 mg Documented by: Clozapine (Clozapine 25 Mg Tab) 50 mg PO QAM [facility] Stop: 12/08/21 08:59 Last Admin: 11/09/21 07:32 Dose: 50 mg Documented by: Enoxaparin Sodium (Enoxaparin Inj 40 Mg/0.4 Ml Syr) 40 mg SQ QAM [facility] Stop: 12/08/21 08:59 Last Admin: 11/09/21 07:31 Dose: 40 mg Documented by: Folic Acid (Folic Acid 1 Mg Tab) 1 mg PO QAM [facility] Stop: 12/08/21 08:59 Last Admin: 11/09/21 07:32 Dose: 1 mg Documented by: Hydroxyzine HCl (Hydroxyzine Hcl 25 Mg Tab) 50 mg PO QID PRN PRN Reason: Anxiety Stop: 12/08/21 19:31 Dextrose/Sodium Chloride (D5w And Nss) 1,000 mls @ 100 mls/hr IV .Q10H [facility] Stop: 12/08/21 17:29 Last Admin: 11/09/21 14:59 Dose: 100 mls/hr Documented by: Mirtazapine (Mirtazapine Tab 15 Mg Tab) 7.5 mg PO [facility] Stop: 12/08/21 20:59 Last Admin: 11/08/21 20:01 Dose: 7.5 mg Documented by: [facility]ivitamins ([facility]ivitamin Tab) [facility] Stop: 12/08/21 08:59 Last Admin: 11/09/21 07:32 Dose: 1 tab Documented by: Simvastatin (Simvastatin 40 Mg Tab) 40 mg PO [facility] Stop: 12/08/21 20:59 Last Admin: 11/08/21 20:01 Dose: 40 mg Documented by: Thiamine HCl (Thiamine Hcl 100 Mg Tab) [facility] Stop: 12/08/21 08:59 Last Admin: 11/09/21 07:33 Dose: 100 mg Documented by: Venlafaxine HCl (Venlafaxine Hcl Xr 150 Mg Capxr) 300 [facility] Stop: 12/08/21 08:59 Last Admin: 11/09/21 07:32 Dose: 300 mg Documented by: (1) Schizophrenia Schizophrenia type: unspecified Qualified Code(s): F20.9 - Schizophrenia, unspecified
[2021-11-09] MEDS: MIRTAZAPINE TAB 15 MG TAB PO SCH (20:07)
[2021-11-09] MEDS: CEFDINIR 300 MG CAP PO SCH (20:07)
[2021-11-09] MEDS: cloZAPine 100 MG TAB PO SCH (20:08)
[2021-11-09] MEDS: SIMVASTATIN 40 MG TAB PO SCH ×2 (20:08→20:55)
[2021-11-10] MEDS: FOLIC ACID 1 MG TAB PO SCH (08:19)
[2021-11-10] MEDS: MULTIVITAMIN TAB PO SCH (08:19)
[2021-11-10] MEDS: cloZAPine 25 MG TAB PO SCH (08:19)
[2021-11-10] MEDS: CEFDINIR 300 MG CAP PO SCH ×2 (08:19→20:11)
[2021-11-10] MEDS: ENOXAPARIN INJ 40 MG/0.4 ML SYR SQ SCH (08:19)
[2021-11-10] MEDS: VENLAFAXINE HCL XR 150 MG CAPXR PO SCH (08:19)
[2021-11-10] MEDS: THIAMINE HCL 100 MG TAB PO SCH (08:19)
[2021-11-10] MEDS ORDERED: POTASSIUM CHLORIDE CRTAB 20 MEQ TABCR PO ONE (08:36)
--- NOTE | 2021-11-10 18:27 | Hospitalist Progress Note ---
Date of Service November 10, 2021 Assessment & Plan (1) Complicated UTI (urinary tract infection): Plan: History urinary retention status post Valle catheter placement at [facility] ER 2/2 uti-started on ceftriaxone, transition to cefdinir Urine culture from [place] ER reveals no growth after two days He is now spontaneously voiding after Valle removal yesterday Continue current antibiotic regimen. (2) Acute urinary retention: Plan: Likely secondary to acute infection, resolved. (3) Schizophrenia: Plan: chronic, worsened depression recently including hallucination and paranoia. Sent to [facility] psychiatric facility prior to arrival. Admits to worsened depression symptoms, promise over the past week. Cont current therapy including Effexor, Mirtazapine and Clozapine. He has a very flat affect and is not eating anything. Will restart fluids and continue to encourage him to eat.Consult nutrition (4) Dehydration: Plan: Not drinking or eating much. Lack of appetite seems to be related to depression (5) Alcohol abuse: Plan: Reported on scanned history taken at outside ER. Per daughter, she reports that father has a tendency to abuse alcohol. There are no signs/symptoms of withdrawal at this time. (6) DVT prophylaxis: Plan: Lovenox Full Code Dispo-stable for discharge to [facility] when bed is available. Priti Yoon DO [facility] Hospitalist Admission and Anticipated Discharge Date Admission Date: November 08, 2021 Subjective 66 yo M with known UTI on Bactrim found two days ago had a valle catheter placed for acute urinary retention. He was transferred to the [facility] psychiatric inpatient care voluntarily. When he arrived, he was noted to be confused and diaphoretic and was sent back to the ER for evaluation. Pt is flat and states he is doing fine Denies pain or fever, Still no appetite and reports hasn't tried any food or gotten out of bed today. 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 Review of Systems Review of Systems: All systems were reviewed and negative except as indicated above. Physical Exam Physical Exam: CONSTITUTIONAL: WNWD, vitals as above, generally well-appear ing, NAD EYES: normal conjunctivae, no scleral icterus ENT: external ear and nose normal, MMM NECK: trachea midline, RESPIRATORY: clear to auscultation bilaterally, no crackles, rales or wheezes, normal respiratory effort CARDIOVASCULAR: regular rate and rhythm, S1 and 2 heard without murmurs, gallops or rubs, no JVD, no peripheral edema CHEST: inspection of chest was normal GASTROINTESTINAL: soft, nontender, ND, no guarding MUSCULOSKELETAL: strength 5/5 throughout, head is normocephalic and atraumatic, SKIN: warm and dry, NEUROLOGIC: CN 2-12 grossly intact, no sensory deficit, normal cognition, normal speech, no tremor PSYCHIATRIC: alert cooperative and oriented to person, place and time. Results & Data Results & Data ([facility]) Vital Signs (Past 12 Hours) Vital Signs Temp Pulse Resp BP Pulse Ox 11/10/21 16:31 36.8 C 75 16 136/84 94 11/10/21 08:05 36.8 C 65 16 113/65 94 Medications Administered Current Inpatient Medications Acetaminophen (Acetaminophen 325 Mg Tab) 325 mg PO Q6H PRN PRN Reason: Mild Pain Stop: 12/08/21 03:35 Cefdinir (Cefdinir 300 Mg Cap) 300 mg PO BID [facility] Stop: 11/14/21 20:59 Last Admin: 11/10/21 08:19 Dose: 300 mg Documented by: Clozapine (Clozapine 100 Mg Tab) 200 mg PO HS [facility] Stop: 12/08/21 20:59 Last Admin: 11/09/21 20:08 Dose: 200 mg Documented by: Clozapine (Clozapine 25 Mg Tab) 50 mg PO QAM [facility] Stop: 12/08/21 08:59 Last Admin: 11/10/21 08:19 Dose: 50 mg Documented by: Enoxaparin Sodium (Enoxaparin Inj 40 Mg/0.4 Ml Syr) 40 mg SQ QAM [facility] Stop: 12/08/21 08:59 Last Admin: 11/10/21 08:19 Dose: 40 mg Documented by: Folic Acid (Folic Acid 1 Mg Tab) 1 mg PO QAM [facility] Stop: 12/08/21 08:59 Last Admin: 11/10/21 08:19 Dose: 1 mg Documented by: Hydroxyzine HCl (Hydroxyzine Hcl 25 Mg Tab) 50 mg PO QID PRN PRN Reason: Anxiety Stop: 12/08/21 19:31 Mirtazapine (Mirtazapine Tab 15 Mg Tab) 7.5 mg PO [facility] Stop: 12/08/21 20:59 Last Admin: 11/09/21 20:07 Dose: 7.5 mg Documented by: Multivitamins (Multivitamin Tab) 1 tab PO [facility] Stop: 12/08/21 08:59 Last Admin: 11/10/21 08:19 Dose: 1 tab Documented by: Simvastatin (Simvastatin 40 Mg Tab) 40 mg PO [facility] Stop: 12/08/21 20:59 Last Admin: 11/09/21 20:55 Dose: 40 mg Documented by: Thiamine HCl (Thiamine Hcl 100 Mg Tab) 100 mg PO [facility] Stop: 12/08/21 08:59 Last Admin: 11/10/21 08:19 Dose: 100 mg Documented by: Venlafaxine HCl (Venlafaxine Hcl Xr 150 Mg Capxr) 300 mg PO [facility] Stop: 12/08/21 08:59 Last Admin: 11/10/21 08:19 Dose: 300 mg Documented by: (1) Schizophrenia Schizophrenia type: unspecified Qualified Code(s): F20.9 - Schizophrenia, unspecified
[2021-11-10] MEDS: SIMVASTATIN 40 MG TAB PO SCH (20:09)
[2021-11-10] MEDS: MIRTAZAPINE TAB 15 MG TAB PO SCH (20:10)
[2021-11-10] MEDS: cloZAPine 100 MG TAB PO SCH (20:10)
[2021-11-10] MEDS: D5W AND 1/2NSS + 20MEQ KCL 20 MEQ/1,000 ML BAG IV SCH (20:11)
[2021-11-11] MEDS: D5W AND 1/2NSS + 20MEQ KCL 20 MEQ/1,000 ML BAG IV SCH ×2 (06:10→16:33)
[2021-11-11] MEDS: FOLIC ACID 1 MG TAB PO SCH (08:14)
[2021-11-11] MEDS: VENLAFAXINE HCL XR 150 MG CAPXR PO SCH (08:14)
[2021-11-11] MEDS: MULTIVITAMIN TAB PO SCH (08:14)
[2021-11-11] MEDS: ENOXAPARIN INJ 40 MG/0.4 ML SYR SQ SCH (08:14)
[2021-11-11] MEDS: cloZAPine 25 MG TAB PO SCH (08:14)
[2021-11-11] MEDS: CEFDINIR 300 MG CAP PO SCH ×2 (08:14→19:44)
[2021-11-11] MEDS: THIAMINE HCL 100 MG TAB PO SCH (08:14)
--- NOTE | 2021-11-11 10:28 | Hospitalist Progress Note ---
Date of Service November 11, 2021 Assessment & Plan (1) Complicated UTI (urinary tract infection): Plan: History urinary retention status post Valle catheter placement at [facility] ER 2/2 uti-started on ceftriaxone, transition to cefdinir Urine culture from [place] ER reveals no growth UCx from [facility] no growth He is now spontaneously voiding after Valle removal yesterday Continue current antibiotic regimen for short 7 day course. (2) Acute urinary retention: Plan: Likely secondary to acute infection vs medication side effect. Resolved. (3) Schizophrenia: Plan: chronic, worsened depression recently including hallucination and paranoia. Sent to [facility] psychiatric facility prior to arrival. Admits to worsened depression symptoms, promise over the past week. Cont current therapy including Effexor, Mirtazapine and Clozapine. He has a very flat affect and is not eating anything. Cont fluids and continue to encourage him to eat. Nutrition following. (4) Dehydration: Plan: Not drinking or eating much. Lack of appetite seems to be related to depression (5) Alcohol abuse: Plan: Reported on scanned history taken at outside ER. Per daughter, she reports that father has a tendency to abuse alcohol. There are no signs/symptoms of withdrawal at this time. (6) DVT prophylaxis: Plan: Lovenox Full Code Dispo-stable for discharge to [facility] when bed is available, hopefully Saturday. Priti Yoon DO [facility] Hospitalist Admission and Anticipated Discharge Date Admission Date: November 08, 2021 Subjective 66 yo M with known UTI on Bactrim found two days ago had a valle catheter placed for acute urinary retention. He was transferred to the [facility] inpatient care voluntarily. When he arrived, he was noted to be confused and diaphoretic and was sent back to the ER for evaluation. Pt is flat and states he is doing fine Denies pain or fever, Still no appetite and reports hasn't tried any food or gotten out of bed today. Passed a trial of void and is urinating spontaneously Not getting out of bed on his own and appears weak, no confusion Nurse put tray of food next to his bedside but still refused it Still awaiting [facility] acceptance of patient Denies pain or other issues today. Review of Systems Review of Systems: All systems were reviewed and negative except as indicated above. Physical Exam Physical Exam: CONSTITUTIONAL: WNWD, vitals as above, generally well- appearing, NAD EYES: normal conjunctivae, no scleral icterus ENT: external ear and nose normal, MMM NECK: trachea midline, RESPIRATORY: clear to auscultation bilaterally, no crackles, rales or wheezes, normal respiratory effort CARDIOVASCULAR: regular rate and rhythm, S1 and 2 heard without murmurs, gallops or rubs, no JVD, no peripheral edema CHEST: inspection of chest was normal GASTROINTESTINAL: soft, nontender, ND, no guarding MUSCULOSKELETAL: strength 5/5 throughout, head is normocephalic and atraumatic, SKIN: warm and dry, NEUROLOGIC: CN 2-12 grossly intact, no sensory deficit, normal cognition, normal speech, no tremor PSYCHIATRIC: alert cooperative and oriented to person, place and time. Results & Data Results & Data ([facility]) Vital Signs (Past 12 Hours) Vital Signs Temp Pulse Resp BP Pulse Ox 11/11/21 07:43 36.8 C 70 18 116/65 95 11/10/21 22:28 36.6 C 81 16 127/78 94 Laboratory Results [facility] 11/11/21 10:32 Sodium 140 Potassium 3.4 L Chloride 110 H Carbon Dioxide 23 BUN 10 Creatinine 0.52 L Glucose 115 H Calcium 9.1 Medications Administered Current Inpatient Medications Acetaminophen (Acetaminophen 325 Mg Tab) 325 mg PO Q6H PRN PRN Reason: Mild Pain Stop: 12/08/21 03:35 Cefdinir (Cefdinir 300 Mg Cap) 300 mg PO BID MARSHA Stop: 11/14/21 20:59 Last Admin: 11/11/21 19:44 Dose: 300 mg Documented by: Clozapine (Clozapine 100 Mg Tab) 200 mg PO HS MARSHA Stop: 12/08/21 20:59 Last Admin: 11/11/21 19:44 Dose: 200 mg Documented by: Clozapine (Clozapine 25 Mg Tab) 50 mg PO QAM MARSHA Stop: 12/08/21 08:59 Last Admin: 11/11/21 08:14 Dose: 50 mg Documented by: Enoxaparin Sodium (Enoxaparin Inj 40 Mg/0.4 Ml Syr) 40 mg SQ QAM MARSHA Stop: 12/08/21 08:59 Last Admin: 11/11/21 08:14 Dose: 40 mg Documented by: Folic Acid (Folic Acid 1 Mg Tab) 1 mg PO QAM MARSHA Stop: 12/08/21 08:59 Last Admin: 11/11/21 08:14 Dose: 1 mg Documented by: Hydroxyzine HCl (Hydroxyzine Hcl 25 Mg Tab) 50 mg PO QID PRN PRN Reason: Anxiety Stop: 12/08/21 19:31 Potassium Chloride/Dextrose/Sod Cl (D5w And 1/2nss + 20meq Kcl) 20 meq in 1,000 mls @ 100 mls/hr IV .Q10H MARSHA; Protocol Stop: 12/10/21 18:29 Last Admin: 11/11/21 16:33 Dose: 100 mls/hr Documented by: Mirtazapine (Mirtazapine Tab 15 Mg Tab) 7.5 mg PO [facility] Stop: 12/08/21 20:59 Last Admin: 11/11/21 19:44 Dose: 7.5 mg Documented by: Multivitamins (Multivitamin Tab) [facility] [place]: 12/08/21 08:59 Last Admin: 11/11/21 08:14 Dose: 1 tab Documented by: Simvastatin (Simvastatin 40 Mg Tab) 40 mg PO [facility] Stop: 12/08/21 20:59 Last Admin: 11/11/21 19:43 Dose: 40 mg Documented by: Thiamine HCl (Thiamine Hcl 100 Mg Tab) [facility] [facility] [place] Stop: 12/08/21 08:59 Last Admin: 11/11/21 08:14 Dose: 100 mg Documented by: Venlafaxine HCl (Venlafaxine Hcl Xr 150 Mg Capxr) 300 [facility] [place] [facility] [place] Stop: 12/08/21 08:59 Last Admin: 11/11/21 08:14 Dose: 300 mg Documented by: (1) Schizophrenia Schizophrenia type: unspecified Qualified Code(s): F20.9 - Schizophrenia, unspecified
[2021-11-11 11:27] LABS: BUN Creatinine Ratio 19.2 (10-20); Calcium 9.1 mg/dl (8.5-10.1); Creatinine Clr Calc Pharmacy 162.7 ml/min; Est GFR (Non-African American) 109.6 ml/min; Magnesium 1.8 mg/dl (1.7-2.4); Phosphorus 2.8 mg/dl (2.5-4.9); Potassium 3.4 mmol/L (3.5-5.1)
[2021-11-11] MEDS ORDERED: POTASSIUM CHLORIDE 20 MEQ/15 ML UDC PO STA (13:10)
[2021-11-11] MEDS ORDERED: MAGNESIUM SULFATE / D5W 1 GM/100 ML BAG IV ONE (13:10)
[2021-11-11] MEDS ORDERED: POTASSIUM CHLORIDE CRTAB 20 MEQ TABCR PO STA (18:57)
[2021-11-11] MEDS: SIMVASTATIN 40 MG TAB PO SCH (19:43)
[2021-11-11] MEDS: cloZAPine 100 MG TAB PO SCH (19:44)
[2021-11-11] MEDS: MIRTAZAPINE TAB 15 MG TAB PO SCH (19:44)
[2021-11-12] MEDS: D5W AND 1/2NSS + 20MEQ KCL 20 MEQ/1,000 ML BAG IV SCH ×3 (02:56→22:25)
[2021-11-12] MEDS: CEFDINIR 300 MG CAP PO SCH ×2 (08:34→20:01)
[2021-11-12] MEDS: cloZAPine 25 MG TAB PO SCH (08:34)
[2021-11-12] MEDS: ENOXAPARIN INJ 40 MG/0.4 ML SYR SQ SCH (08:35)
[2021-11-12] MEDS: FOLIC ACID 1 MG TAB PO SCH (08:36)
[2021-11-12] MEDS: MULTIVITAMIN TAB PO SCH (08:36)
[2021-11-12] MEDS: VENLAFAXINE HCL XR 150 MG CAPXR PO SCH (08:37)
[2021-11-12] MEDS: THIAMINE HCL 100 MG TAB PO SCH (08:37)
[2021-11-12] MEDS ORDERED: POTASSIUM CHLORIDE CRTAB 20 MEQ TABCR PO STA (19:31)
--- NOTE | 2021-11-12 19:37 | Hospitalist Progress Note ---
Date of Service November 12, 2021 Assessment & Plan (1) Complicated UTI (urinary tract infection): Plan: (1) Complicated UTI (urinary tract infection): Plan: History urinary retention status post Ortiz catheter placement at [facility] ER / uti-started on ceftriaxone, transition to cefdinir 11/09 Urine culture from [place] ER reveals no growth UCx from [facility] no growth He is now spontaneously voiding after Ortiz removal 11/10 Continue current antibiotic regimen for short 7 day course. (2) Acute urinary retention: Plan: Likely secondary to acute infection vs medication side effect. Resolved. (3) Schizophrenia: Plan: chronic, worsened depression recently including hallucination and paranoia. Sent to [facility] psychiatric facility prior to arrival. Admits to worsened depression symptoms, promise over the past week. Cont current therapy including Effexor, Mirtazapine and Clozapine. He has a very flat affect. Repo rts eating. Cont fluids and continue to encourage him to eat. Nutrition following. Likely DC IVF clement. (4) Dehydration: Plan: Not drinking or eating much. Lack of appetite seems to be related to depression. (5) Alcohol abuse: Plan: Reported on scanned history taken at outside ER. Per daughter, she reports that father has a tendency to abuse alcohol. There are no signs/symptoms of withdrawal at this time. (6) DVT prophylaxis: Plan: Lovenox Full Code Dispo-stable for discharge to [facility] when bed is available, hopefully Saturday. Admission and Anticipated Discharge Date Admission Date: November 08, 2021 Subjective Patient seen and examined at bedside as a follow-up of complicated UTI and acute urinary retention. Patient was lying in bed, on room air, AOx3, NAD, no new acute events overnight. Patient denies any headache/dizziness/chest pain/palpitations/belly pain/other ROS. Patient reports eating okay and moving bowels okay. Physical Exam Physical Exam: GENERAL: Alert and oriented x3. NAD, on RA. HEENT: No pallor, no icterus. Pupils equal, round and reactive to light. Oral mucosa moist. NECK: No JVD, no neck masses. HEART: S1 and S2 heard. Regular rate and rhythm. No murmur, no gallop. RESPIRATORY SYSTEM: Normal AP diameter. No accessory muscle use. No wheezing, b/b rales ABDOMEN: Soft, bowel sounds present, nontender, no distention. CENTRAL NERVOUS SYSTEM: No facial droop. Speech is clear. Obeys simple commands. Moves extremities. EXTREMITIES: No edema, no erythema seen. Results & Data Results & Data ([facility]) Vital Signs (Past 12 Hours) Vital Signs Temp Pulse Resp BP Pulse Ox 11/12/21 15:17 36.7 C 74 18 135/82 94
[2021-11-12] MEDS: cloZAPine 100 MG TAB PO SCH (20:02)
[2021-11-12] MEDS: SIMVASTATIN 40 MG TAB PO SCH (20:03)
[2021-11-12] MEDS: MIRTAZAPINE TAB 15 MG TAB PO SCH (20:03)
[2021-11-13] MEDS: D5W AND 1/2NSS + 20MEQ KCL 20 MEQ/1,000 ML BAG IV SCH ×2 (06:38→16:31)
[2021-11-13] MEDS: THIAMINE HCL 100 MG TAB PO SCH (09:10)
[2021-11-13] MEDS: cloZAPine 25 MG TAB PO SCH (09:10)
[2021-11-13] MEDS: CEFDINIR 300 MG CAP PO SCH ×2 (09:10→20:13)
[2021-11-13] MEDS: MULTIVITAMIN TAB PO SCH (09:11)
[2021-11-13] MEDS: ENOXAPARIN INJ 40 MG/0.4 ML SYR SQ SCH (09:11)
[2021-11-13] MEDS: VENLAFAXINE HCL XR 150 MG CAPXR PO SCH (09:11)
[2021-11-13] MEDS: FOLIC ACID 1 MG TAB PO SCH (09:11)
[2021-11-13 09:58] LABS: Hematocrit (blood only) 42.4 % (42-52); Hemoglobin 14.5 g/dL (14.0-18.0); Mean Corpuscular Hemoglobin 31.3 pg (25-34); Mean Corpuscular Hgb Conc 34.2 g/dL (32-36); Mean Corpuscular Volume 91.4 fL (80-100); Mean Platelet Volume 10.6 fL (7.4-10.4); Platelet Count 232 K/uL (130-400); RDW Coefficient of Variation 13.7 % (11.5-14.5); RDW Standard Deviation 45.8 fL (36.4-46.3); Red Blood Count 4.64 M/uL (4.7-6.1)
[2021-11-13 10:19] LABS: BUN Creatinine Ratio 5.3 (10-20); Calcium 9.3 mg/dl (8.5-10.1); Creatinine Clr Calc Pharmacy 148.5 ml/min; Est GFR (African American) 122.3 ml/min; Est GFR (Non-African American) 105.5 ml/min; Magnesium 1.9 mg/dl (1.7-2.4); Phosphorus 3.2 mg/dl (2.5-4.9); Potassium 3.8 mmol/L (3.5-5.1)
--- NOTE | 2021-11-13 19:22 | Hospitalist Progress Note ---
Date of Service November 13, 2021 Assessment & Plan (1) Complicated UTI (urinary tract infection): Plan: (1) Complicated UTI (urinary tract infection): Plan: History urinary retention status post Ortiz catheter placement at [facility] ER / uti-started on ceftriaxone, transition to cefdinir 11/09 Urine culture from [place] ER reveals no growth UCx from [facility] no growth He is now spontaneously voiding after Ortiz removal 11/10 Continue current antibiotic regimen for short 7 day course. (2) Acute urinary retention: Plan: Likely secondary to acute infection vs medication side effect. Resolved. (3) Schizophrenia: Plan: chronic, worsened depression recently including hallucination and paranoia. Sent to [facility] psychiatric facility prior to arrival. Admits to worsened depression symptoms, promise over the past week. Cont current therapy including Effexor, Mirtazapine and Clozapine. He has a very flat affect. Repo rts eating. Cont fluids and continue to encourage him to eat. Nutrition following. Likely DC IVF when pt eating good Family doesn't want patient to go to [facility], Psychiatry consulted. (4) Dehydration: Plan: Not drinking or eating much. Lack of appetite seems to be related to depression. (5) Alcohol abuse: Plan: Reported on scanned history taken at outside ER. Per daughter, she reports that father has a tendency to abuse alcohol. There are no signs/symptoms of withdrawal at this time. (6) DVT prophylaxis: Plan: Lovenox Full Code Dispo-stable for discharge, psych eval pending, cm to assist w/ dc planning. Admission and Anticipated Discharge Date Admission Date: November 08, 2021 Subjective Patient seen and examined at bedside as a follow-up of complicated UTI and acute urinary retention. Patient was lying in bed, on room air, AOx3, NAD, no new acute events overnight. Flat affect. Patient denies any headache/dizziness/chest pain/palpitations/belly pain/other ROS. Patient reports eating less today and moving bowels okay. Physical Exam Physical Exam: GENERAL: Alert and oriented x3. NAD, on RA. HEENT: No pallor, no icterus. Pupils equal, round and reactive to light. Oral mucosa moist. NECK: No JVD, no neck masses. HEART: S1 and S2 heard. Regular rate and rhythm. No murmur, no gallop. RESPIRATORY SYSTEM: Normal AP diameter. No accessory muscle use. No wheezing, b/b rales ABDOMEN: Soft, bowel sounds present, nontender, no distention. CENTRAL NERVOUS SYSTEM: No facial droop. Speech is clear. Obeys simple commands. Moves extremities. EXTREMITIES: No edema, no erythema seen. Results & Data Results & Data ([facility]) Vital Signs (Past 12 Hours) Vital Signs Temp Pulse Resp Pulse Ox 11/13/21 16:06 36.7 C 76 18 94
[2021-11-13] MEDS: MIRTAZAPINE TAB 15 MG TAB PO SCH (20:13)
[2021-11-13] MEDS: cloZAPine 100 MG TAB PO SCH (20:13)
[2021-11-13] MEDS: SIMVASTATIN 40 MG TAB PO SCH (20:13)
--- NOTE | 2021-11-14 08:17 | Psychiatric Consultation ---
Date of Consultation November 14, 2021 Impression / Recommendations Impression 66 yo man with a history of schizophrenia and recently worsening depression who was transferred from the [facility] for a presumed UTI shortly after arriving last week. He is nearly medical stability and remains voluntary for inpatient psychiatric treatment for depression. Given his history per chart review and his PHQ 9 score and discussion with psych liason I agree that return for inpatient psychiatric hospitalization is appropriate. Agree with return to [facility] as is his desire. If he changes his mind and wishes to go somewhere else for inpatient psych treatment psych liason can peruse referrals for other hospitalizations but pateint and family should be aware that this process could take time as there is often a wait for inpatient psychiatric beds and the [facility] is already willing to have him return to their facility for ongoing treatment. Acute risk of self- harm is low given no SI but inpatient warranted due to worsening depression with decreased care for self including decreased po intake. (1) Schizophrenia: Schizophrenia type: unspecified Qualified Code(s): F20.9 - Schizophrenia, unspecified (2) Depression: -Voluntary to return to [place] once medically stable Psych History Allergies Allergy/AdvReac Type Severity Reaction Status Date / Time No Known Allergies Allergy Verified 11/07/21 22:25 Home Medications Medication Instructions Recorded Confirmed Type clozapine 100 mg tablet 200 mg PO HS 11/07/21 11/07/21 History clozapine 50 mg tablet 50 mg PO QAM 11/07/21 11/07/21 History folic acid 1 mg tablet 1 mg PO QAM 11/07/21 11/07/21 History hydroxyzine HCl 50 mg tablet 50 mg PO QID PRN 11/07/21 11/07/21 History mirtazapine 7.5 mg tablet 7.5 mg PO HS 11/07/21 11/07/21 History multivitamin with folic acid 400 1 tab PO QAM 11/07/21 11/07/21 History mcg tablet (Tab-A-[facility]ber[facility]) simvastatin 20 mg tablet 40 mg PO HS 11/07/21 11/07/21 History thiamine HCl (vitamin B1) 100 mg 100 mg PO QAM 11/07/21 11/07/21 History tablet venlafaxine 150 mg 300 mg PO QAM 11/07/21 11/07/21 History capsule,extended release 24 hr Personal History Beliefs That Will Affect Care: None Patient History Medical History Hyperlipidemia Schizophrenia Urinary retention Family History Other Family history non-contributory Social History Smoking Status: Former smoker Hx Alcohol Use: Yes Alcohol type: beer Hx Substance Use: No Preferred Language: Setswana Communication Ability: [employer] Instructor Required: No Beliefs That Will Affect Care: None marital status: Single Current Living Situation: Alone Other Information That Helps Us Care for You: No Feels Safe at Home: Yes Safety Concerns: Feels Safe At This Time Assistive Devices: None Physical Exam Vital Signs (Past 24 Hours): Last Vital Signs Temp 36.9 C 11/14/21 07:12 Pulse 79 11/14/21 07:12 Resp 16 11/14/21 07:12 BP 130/75 11/14/21 07:12 Pulse Ox 95 11/14/21 07:12 Results & Data ([facility]) Medications Administered Cefdinir (Cefdinir 300 Mg Cap) 300 mg PO BID MARSHA Stop: 11/14/21 20:59 Last Admin: 11/13/21 20:13 Dose: 300 mg Documented by: [id number] Admin: 11/13/21 09:10 Dose: 300 mg Documented by: [id number] Admin: 11/12/21 20:01 Dose: 300 mg Documented by: [id number] Admin: 11/12/21 08:34 Dose: 300 mg Documented by: [id number] Admin: 11/11/21 19:44 Dose: 300 mg Documented by: [id number] Admin: 11/11/21 08:14 Dose: 300 mg Documented by: [id number] Admin: 11/10/21 20:11 Dose: 300 mg Documented by: [id number] Admin: 11/10/21 08:19 Dose: 300 mg Documented by: [id number] Admin: 11/09/21 20:07 Dose: 300 mg Documented by: [id number] Clozapine (Clozapine 100 Mg Tab) 200 mg PO HS MARSHA Stop: 12/08/21 20:59 Last Admin: 11/13/21 20:13 Dose: 200 mg Documented by: [id number] Admin: 11/12/21 20:02 Dose: 200 mg Documented by: [id number] Admin: 11/11/21 19:44 Dose: 200 mg Documented by: [id number] Admin: 11/10/21 20:10 Dose: 200 mg Documented by: [id number] Admin: 11/09/21 20:08 Dose: 200 mg Documented by: [id number] Admin: 11/08/21 20:55 Dose: 200 mg Documented by: [id number] Clozapine (Clozapine 25 Mg Tab) [facility] [place]: 12/08/21 08:59 Last Admin: 11/13/21 09:10 Dose: 50 mg Documented by: [id number] Admin: 11/12/21 08:34 Dose: 50 mg Documented by: [id number] Admin: 11/11/21 08:14 Dose: 50 mg Documented by: [id number] Admin: 11/10/21 08:19 Dose: 50 mg Documented by: [id number] Admin: 11/09/21 07:32 Dose: 50 mg Documented by: [id number] Admin: 11/08/21 07:58 Dose: 50 mg Documented by: [id number] Enoxaparin Sodium (Enoxaparin Inj 40 Mg/0.4 Ml Syr) 40 mg SQ [facility] Stop: 12/08/21 08:59 Last Admin: 11/13/21 09:11 Dose: 40 mg Documented by: [id number] Admin: 11/12/21 08:35 Dose: 40 mg Documented by: [id number] Admin: 11/11/21 08:14 Dose: 40 mg Documented by: [id number] Admin: 11/10/21 08:19 Dose: 40 mg Documented by: [id number] Admin: 11/09/21 07:31 Dose: 40 mg Documented by: [id number] Admin: 11/08/21 07:59 Dose: 40 mg Documented by: [id number] Folic Acid (Folic Acid 1 Mg Tab) 1 mg PO [facility] Stop: 12/08/21 08:59 Last Admin: 11/13/21 09:11 Dose: 1 mg Documented by: [id number] Admin: 11/12/21 08:36 Dose: 1 mg Documented by: [id number] Admin: 11/11/21 08:14 Dose: 1 mg Documented by: [id number] Admin: 11/10/21 08:19 Dose: 1 mg Documented by: [id number] Admin: 11/09/21 07:32 Dose: 1 mg Documented by: [id number] Admin: 11/08/21 07:58 Dose: 1 mg Documented by: [id number] Potassium Chloride/Dextrose/Sod Cl (D5w And 1/2nss + 20meq Kcl) 20 meq in 1,000 mls @ 60 mls/hr IV .[id number] MARSHA; Protocol Stop: 12/10/21 18:29 Last Infusion: 11/13/21 20:11 Dose: 60 mls/hr Documented by: [id number] Infusion: 11/13/21 18:55 Dose: 100 mls/hr Documented by: [id number] Admin: 11/13/21 16:31 Dose: 100 mls/hr Documented by: [id number] Infusion: 11/13/21 16:31 Dose: 100 mls/hr Documented by: [id number] Admin: 11/13/21 06:38 Dose: 100 mls/hr Documented by: [id number] Infusion: 11/13/21 06:38 Dose: 100 mls/hr Documented by: [id number] Admin: 11/12/21 22:25 Dose: 100 mls/hr Documented by: [id number] Infusion: 11/12/21 22:25 Dose: 100 mls/hr Documented by: [id number] Admin: 11/12/21 12:43 Dose: 100 mls/hr Documented by: [id number] Infusion: 11/12/21 12:43 Dose: 100 mls/hr Documented by: [id number] Admin: 11/12/21 02:56 Dose: 100 mls/hr Documented by: [id number] Infusion: 11/12/21 02:33 Dose: 100 mls/hr Documented by: [id number] Admin: 11/11/21 16:33 Dose: 100 mls/hr Documented by: [id number] Infusion: 11/11/21 16:10 Dose: 100 mls/hr Documented by: [id number] Admin: 11/11/21 06:10 Dose: 100 mls/hr Documented by: [id number] Infusion: 11/11/21 06:10 Dose: 100 mls/hr Documented by: [id number] Admin: 11/10/21 20:11 Dose: 100 mls/hr Documented by: [id number] Mirtazapine (Mirtazapine Tab 15 Mg Tab) 7.5 mg PO HS MARSHA Stop: 12/08/21 20:59 Last Admin: 11/13/21 20:13 Dose: 7.5 mg Documented by: [id number] Admin: 11/12/21 20:03 Dose: 7.5 mg Documented by: [id number] Admin: 11/11/21 19:44 Dose: 7.5 mg Documented by: [id number] Admin: 11/10/21 20:10 Dose: 7.5 mg Documented by: [id number] Admin: 11/09/21 20:07 Dose: 7.5 mg Documented by: [id number] Admin: 11/08/21 20:01 Dose: 7.5 mg Documented by: [id number] Multivitamins (Multivitamin Tab) 1 tab PO QAM MARSHA Stop: 12/08/21 08:59 Last Admin: 11/13/21 09:11 Dose: 1 tab Documented by: [id number] Admin: 11/12/21 08:36 Dose: 1 tab Documented by: [id number] Admin: 11/11/21 08:14 Dose: 1 tab Documented by: [id number] Admin: 11/10/21 08:19 Dose: 1 tab Documented by: [id number] Admin: 11/09/21 07:32 Dose: 1 tab Documented by: [id number] Admin: 11/08/21 07:58 Dose: 1 tab Documented by: [id number] Simvastatin (Simvastatin 40 Mg Tab) 40 mg PO HS MARSHA Stop: 12/08/21 20:59 Last Admin: 11/13/21 20:13 Dose: 40 mg Documented by: [id number] Admin: 11/12/21 20:03 Dose: 40 mg Documented by: [id number] Admin: 11/11/21 19:43 Dose: 40 mg Documented by: [id number] Admin: 11/10/21 20:09 Dose: 40 mg Documented by: [id number] Admin: 11/09/21 20:55 Dose: 40 mg Documented by: [id number] Admin: 11/08/21 20:01 Dose: 40 mg Documented by: [id number] Thiamine HCl (Thiamine Hcl 100 Mg Tab) 100 mg PO QAM MARSHA Stop: 12/08/21 08:59 Last Admin: 11/13/21 09:10 Dose: 100 mg Documented by: [id number] Admin: 11/12/21 08:37 Dose: 100 mg Documented by: [id number] Admin: 11/11/21 08:14 Dose: 100 mg Documented by: [id number] Admin: 11/10/21 08:19 Dose: 100 mg Documented by: [id number] Admin: 11/09/21 07:33 Dose: 100 mg Documented by: [id number] Admin: 11/08/21 07:58 Dose: 100 mg Documented by: [id number] Venlafaxine HCl (Venlafaxine Hcl Xr 150 Mg Capxr) 300 mg PO QAM [facility] Stop: 12/08/21 08:59 Last Admin: 11/13/21 09:11 Dose: 300 mg Documented by: [id number] Admin: 11/12/21 08:37 Dose: 300 mg Documented by: [id number] Admin: 11/11/21 08:14 Dose: 300 mg Documented by: [id number] Admin: 11/10/21 08:19 Dose: 300 mg Documented by: [id number] Admin: 11/09/21 07:32 Dose: 300 mg Documented by: [id number] Admin: 11/08/21 07:58 Dose: 300 mg Documented by: [id number] Coding Level of Care Code None Diagnoses Schizophrenia F20.9 Schizophrenia type: unspecified Depression F32.A
[2021-11-14 08:18] LABS: BUN Creatinine Ratio 6.3 (10-20); Calcium 9.6 mg/dl (8.5-10.1); Creatinine Clr Calc Pharmacy 134.3 ml/min; Est GFR (African American) 117.4 ml/min; Est GFR (Non-African American) 101.3 ml/min; Potassium 3.6 mmol/L (3.5-5.1)
[2021-11-14 08:56] LABS: Basophils # (auto) 0.02 K/uL (0-0.2); Basophils % (auto) 0.3 %; Eosinophils # (auto) 0.26 K/uL (0-0.5); Eosinophils % (auto) 4.1 %; Hematocrit (blood only) 44.4 % (42-52); Hemoglobin 14.7 g/dL (14.0-18.0); Immature Granulocytes # (auto) 0.03 K/uL (0.00-0.02); Immature Granulocytes % (auto) 0.5 %; Lymphocytes # (auto) 1.28 K/uL (1.2-3.4); Lymphocytes % (auto) 20.1 %; Mean Corpuscular Hemoglobin 30.4 pg (25-34); Mean Corpuscular Hgb Conc 33.1 g/dL (32-36); Mean Corpuscular Volume 91.7 fL (80-100); Mean Platelet Volume 10.5 fL (7.4-10.4); Monocytes # (auto) 0.59 K/uL (0.11-0.59); Monocytes % (auto) 9.2 %; Neutrophils % (auto) 65.8 %; Platelet Count 259 K/uL (130-400); RDW Coefficient of Variation 13.8 % (11.5-14.5); RDW Standard Deviation 46.4 fL (36.4-46.3); Red Blood Count 4.84 M/uL (4.7-6.1); White Blood Count 6.38 K/uL (4.8-10.8)
[2021-11-14] MEDS: D5W AND 1/2NSS + 20MEQ KCL 20 MEQ/1,000 ML BAG IV SCH (09:02)
[2021-11-14] MEDS: CEFDINIR 300 MG CAP PO SCH (09:04)
[2021-11-14] MEDS: cloZAPine 25 MG TAB PO SCH (09:05)
[2021-11-14] MEDS: THIAMINE HCL 100 MG TAB PO SCH (09:07)
[2021-11-14] MEDS: MULTIVITAMIN TAB PO SCH (09:07)
[2021-11-14] MEDS: FOLIC ACID 1 MG TAB PO SCH (09:07)
[2021-11-14] MEDS: ENOXAPARIN INJ 40 MG/0.4 ML SYR SQ SCH (09:08)
[2021-11-14] MEDS: VENLAFAXINE HCL XR 150 MG CAPXR PO SCH (09:08)
--- NOTE | 2021-11-14 18:34 | Hospitalist Progress Note ---
Date of Service November 14, 2021 Assessment & Plan (1) Complicated UTI (urinary tract infection): Plan: (1) Complicated UTI (urinary tract infection): Plan: History urinary retention status post Ortiz catheter placement at [facility] ER / uti-started on ceftriaxone, transition to cefdinir 11/09 Urine culture from [place] ER reveals no growth UCx from [facility] no growth He is now spontaneously voiding after Ortiz removal 11/10 Continue current antibiotic regimen for short 7 day course. (2) Acute urinary retention: Plan: Likely secondary to acute infection vs medication side effect. Resolved. (3) Schizophrenia: Plan: chronic, worsened depression recently including hallucination and paranoia. Sent to [facility] psychiatric facility prior to arrival. Admits to worsened depression symptoms, promise over the past week. Cont current therapy including Effexor, Mirtazapine and Clozapine. He has a very flat affect. Reports eating. Cont fluids and continue to encourage him to eat. Nutrition following. DC IVF Family doesn't want patient to go to [facility], Psychiatry consulted, inpatient psychiatry admission warranted due to worsening depression w/ decreased care for self including decreased po intake. Pt's dtr has psychiatry POA, psychiatry liasion along w/ CM assisting w/ placement. (4) Dehydration: Plan: Not drinking or eating much. Lack of appetite seems to be related to depression. (5) Alcohol abuse: Plan: Reported on scanned history taken at outside ER. Per daughter, she reports that father has a tendency to abuse alcohol. There are no signs/symptoms of withdrawal at this time. (6) DVT prophylaxis: Plan: Lovenox Full Code Dispo-medically stable for discharge, needs inpatient psychiatric admission, psych eval pending, cm to assist w/ dc planning. Admission and Anticipated Discharge Date Admission Date: November 08, 2021 Subjective Patient seen and examined at bedside as a follow-up of complicated UTI and acute urinary retention. Patient was lying in bed, on room air, AOx3, NAD, no new acute events overnight. Flat affect. Patient denies any headache/dizziness/chest pain/palpitations/belly pain/other ROS. Patient reports eating better than yesterday and moving bowels okay. Will DC ivf. Physical Exam Physical Exam: GENERAL: Alert and oriented x3. NAD, on RA. HEENT: No pallor, no icterus. Pupils equal, round and reactive to light. Oral mucosa moist. NECK: No JVD, no neck masses. HEART: S1 and S2 heard. Regular rate and rhythm. No murmur, no gallop. RESPIRATORY SYSTEM: Normal AP diameter. No accessory muscle use. No wheezing, b/b rales ABDOMEN: Soft, bowel sounds present, nontender, no distention. CENTRAL NERVOUS SYSTEM: No facial droop. Speech is clear. Obeys simple commands. Moves extremities. EXTREMITIES: No edema, no erythema seen. Results & Data Results & Data ([facility]) Vital Signs (Past 12 Hours) Vital Signs Temp Pulse Resp BP Pulse Ox 11/14/21 14:15 36.5 C 61 16 123/80 98 11/14/21 07:12 36.9 C 79 16 130/75 95
[2021-11-14] MEDS: SIMVASTATIN 40 MG TAB PO SCH (20:30)
[2021-11-14] MEDS: cloZAPine 100 MG TAB PO SCH (20:30)
[2021-11-14] MEDS: MIRTAZAPINE TAB 15 MG TAB PO SCH (20:30)
[2021-11-15 08:05] LABS: Hematocrit (blood only) 44.7 % (42-52); Mean Corpuscular Hemoglobin 31.3 pg (25-34); Mean Corpuscular Hgb Conc 33.6 g/dL (32-36); Mean Corpuscular Volume 93.3 fL (80-100); Mean Platelet Volume 10.4 fL (7.4-10.4); Platelet Count 249 K/uL (130-400); RDW Coefficient of Variation 13.7 % (11.5-14.5); RDW Standard Deviation 46.6 fL (36.4-46.3); Red Blood Count 4.79 M/uL (4.7-6.1); White Blood Count 6.01 K/uL (4.8-10.8)
[2021-11-15 08:22] LABS: Calcium 9.6 mg/dl (8.5-10.1); Creatinine Clr Calc Pharmacy 115.9 ml/min; Est GFR (African American) 110.5 ml/min; Est GFR (Non-African American) 95.3 ml/min; Phosphorus 4.4 mg/dl (2.5-4.9); Potassium 3.8 mmol/L (3.5-5.1)
[2021-11-15] MEDS: cloZAPine 25 MG TAB PO SCH (08:47)
[2021-11-15] MEDS: MULTIVITAMIN TAB PO SCH (08:48)
[2021-11-15] MEDS: FOLIC ACID 1 MG TAB PO SCH (08:48)
[2021-11-15] MEDS: THIAMINE HCL 100 MG TAB PO SCH (08:48)
[2021-11-15] MEDS: VENLAFAXINE HCL XR 150 MG CAPXR PO SCH (08:49)
[2021-11-15] MEDS: ENOXAPARIN INJ 40 MG/0.4 ML SYR SQ SCH (08:53)
--- NOTE | 2021-11-15 17:36 | Psychiatric Consultation ---
Date of Consultation November 15, 2021 Impression / Recommendations Impression 66 yo man with a history of schizophrenia and recently worsening depression who was transferred from the [facility] for a presumed UTI shortly after arriving last week. He is now medically stable and remains voluntary for inpatient psychiatric treatment for depression and worsening auditory hallucinations and paranoia. Paranoia seems to have improved with treatment of UTI so some of worsening of psychosis may have been from infection/delirium which has now resolved. Given his depression and his PHQ 9 score I agree that inpatient psychiatric hospitalization is appropriate. Acute risk of self-harm is moderate given no SI but inpatient warranted due to worsening depression with decreased care for self including decreased appetite. He would not meet 302 criteria at this point so if he changes his mind regarding voluntary treatment could leave AMA with family. (1) MDD (major depressive disorder), recurrent episode: (2) Schizophrenia: Schizophrenia type: unspecified Qualified Code(s): F20.9 - Schizophrenia, unspecified -Voluntary for inpt psych tx, referrals being sent to facilities near his home in [place]. -medically stable with improved po intake -continue psych meds of clozapine, Effexor and mirtazapine Risk Factors Assessment Male: Yes : Yes Do You Have Access To A Gun?: No Health Problems: No Mental Health Diagnoses: Yes Substance Use Disorders: Yes Previous Psychiatric Hospitalization: Yes Protective Factors Assessment Stable Relationships: Yes Supportive Family: Yes Psych History Identifying Data 66 yo man from [place] with history of schizophrenia and depression admitted medically for UTI from [place] shortly after arriving for psychiatric admission. Psychiatry consulted for disposition recommendations. Chief Complaint "I'm depressed". History of Present Illness Cassius reports a long history of depression and schizophrenia. Recently he has been experiencing worsening depression with decreased appetite, low energy, decreased energy, anhedonia, low motivation, helplessness. Also with worsened AH and some periods of paranoia. He reports multiple prior psych hospitalizations (~10 times) and many prior episodes of depression. He denies SI. He lives alone and has experienced more difficulty attending to his needs due to feeling more depressed. Denies HI. Experiencing AH of mumbled voices, no command AH. Eating more in the hospital, had some soup today. Denies anxiety. He would like to consider a psych hospital closer to his home as he was previously at the [facility] briefly but this is far from his home. He's completed treatment for his UTI. He's been continued on his clozapine, Effexor and mirtazapine. History of prior alcohol use/misuse, no recent symptoms of withdrawal. See psych liason notes for further collateral. Past Psychiatric History Previous Psych Admissions: multiple Do You Have Access To A Gun?: No Allergies Allergy/AdvReac Type Severity Reaction Status Date / Time No Known Allergies Allergy Verified 11/07/21 22:25 Home Medications Medication Instructions Recorded Confirmed Type clozapine 100 mg tablet 200 mg PO HS 11/07/21 11/07/21 History clozapine 50 mg tablet 50 mg PO QAM 11/07/21 11/07/21 History folic acid 1 mg tablet 1 mg PO QAM 11/07/21 11/07/21 History hydroxyzine HCl 50 mg tablet 50 mg PO QID PRN 11/07/21 11/07/21 History mirtazapine 7.5 mg tablet 7.5 mg PO HS 11/07/21 11/07/21 History multivitamin with folic acid 400 1 tab PO QAM 11/07/21 11/07/21 History mcg tablet (Tab-A-Kimberley) simvastatin 20 mg tablet 40 mg PO HS 11/07/21 11/07/21 History thiamine HCl (vitamin B1) 100 mg 100 mg PO QAM 11/07/21 11/07/21 History tablet venlafaxine 150 mg 300 mg PO QAM 11/07/21 11/07/21 History capsule,extended release 24 hr Substance Abuse History alcohol use Personal History Living Arrangements: Home (alone) Number Of Children: daughter who is a good support Beliefs That Will Affect Care: None Patient History Medical History Hyperlipidemia Schizophrenia Urinary retention Family History Other Family history non-contributory Social History Smoking Status: Former smoker Hx Alcohol Use: Yes Alcohol type: beer Hx Substance Use: No Preferred Language: [place]ankan Communication Ability: Effective Carbonation Tester Required: No Beliefs That Will Affect Care: None marital status: Single Current Living Situation: Alone Other Information That Helps Us Care for You: No Feels Safe at Home: Yes Safety Concerns: Feels Safe At This Time Assistive Devices: None Physical Exam Psychiatric: Orientation: alert and oriented x 3 Apperance: appropriately dressed and appropriately groomed Eye Contact: + fair eye contact Motor Behavior: no abnormal motor movements Speech: normal rate/rhythm/volume of speech Affect: + flat affect Mood: + depressed mood Thought Process: + concrete thought process Thought Content: reality based without delusions Suicidal Thoughts: denies suicidal thoughts Homicidal Thoughts: denies homicidal thoughts Hallucinations: + auditory hallucinations; no visual hallucinations Cognition: recent memory grossly intact, remote memory grossly intact, attention grossly intact and language grossly intact Estimated Intelligence: consistent with education level Insight: + fair insight Judgement: + limited judgement Vital Signs (Past 24 Hours): Last Vital Signs Temp 36.6 C 11/15/21 14:29 Pulse 94 H 11/15/21 14:29 Resp 16 11/15/21 14:29 BP 138/92 11/15/21 14:29 Pulse Ox 94 11/15/21 14:29 Review of Systems All systems reviewed & are unremarkable except as noted in HPI & below Results & Data (PSY) Medications Administered Clozapine (Clozapine 100 Mg Tab) 200 mg PO [facility] Stop: 12/08/21 20:59 Last Admin: 11/14/21 20:30 Dose: 200 mg Documented by: [id number] Admin: 11/13/21 20:13 Dose: 200 mg Documented by: [id number] Admin: 11/12/21 20:02 Dose: 200 mg Documented by: [id number] Admin: 11/11/21 19:44 Dose: 200 mg Documented by: [id number] Admin: 11/10/21 20:10 Dose: 200 mg Documented by: [id number] Admin: 11/09/21 20:08 Dose: 200 mg Documented by: [id number] Admin: 11/08/21 20:55 Dose: 200 mg Documented by: [id number] Clozapine (Clozapine 25 Mg Tab) 50 mg PO QAM MARSHA Stop: 12/08/21 08:59 Last Admin: 11/15/21 08:47 Dose: 50 mg Documented by: [id number] Admin: 11/14/21 09:05 Dose: 50 mg Documented by: [id number] Admin: 11/13/21 09:10 Dose: 50 mg Documented by: [id number] Admin: 11/12/21 08:34 Dose: 50 mg Documented by: [id number] Admin: 11/11/21 08:14 Dose: 50 mg Documented by: [id number] Admin: 11/10/21 08:19 Dose: 50 mg Documented by: [id number] Admin: 11/09/21 07:32 Dose: 50 mg Documented by: [id number] Admin: 11/08/21 07:58 Dose: 50 mg Documented by: [id number] Enoxaparin Sodium (Enoxaparin Inj 40 Mg/0.4 Ml Syr) 40 mg SQ QAM MARSHA Stop: 12/08/21 08:59 Last Admin: 11/15/21 08:53 Dose: 40 mg Documented by: [id number] Admin: 11/14/21 09:08 Dose: 40 mg Documented by: [id number] Admin: 11/13/21 09:11 Dose: 40 mg Documented by: [id number] Admin: 11/12/21 08:35 Dose: 40 mg Documented by: [id number] Admin: 11/11/21 08:14 Dose: 40 mg Documented by: [id number] Admin: 11/10/21 08:19 Dose: 40 mg Documented by: [id number] Admin: 11/09/21 07:31 Dose: 40 mg Documented by: [id number] Admin: 11/08/21 07:59 Dose: 40 mg Documented by: [id number] Folic Acid (Folic Acid 1 Mg Tab) 1 mg PO QAM MARSHA Stop: 12/08/21 08:59 Last Admin: 11/15/21 08:48 Dose: 1 mg Documented by: [id number] Admin: 11/14/21 09:07 Dose: 1 mg Documented by: [id number] Admin: 11/13/21 09:11 Dose: 1 mg Documented by: [id number] Admin: 11/12/21 08:36 Dose: 1 mg Documented by: [id number] Admin: 11/11/21 08:14 Dose: 1 mg Documented by: [id number] Admin: 11/10/21 08:19 Dose: 1 mg Documented by: [id number] Admin: 11/09/21 07:32 Dose: 1 mg Documented by: [id number] Admin: 11/08/21 07:58 Dose: 1 mg Documented by: [id number] Mirtazapine (Mirtazapine Tab 15 Mg Tab) 7.5 mg PO HS MARSHA Stop: 12/08/21 20:59 Last Admin: 11/14/21 20:30 Dose: 7.5 mg Documented by: [id number] Admin: 11/13/21 20:13 Dose: 7.5 mg Documented by: [id number] Admin: 11/12/21 20:03 Dose: 7.5 mg Documented by: [id number] Admin: 11/11/21 19:44 Dose: 7.5 mg Documented by: [id number] Admin: 11/10/21 20:10 Dose: 7.5 mg Documented by: [id number] Admin: 11/09/21 20:07 Dose: 7.5 mg Documented by: [id number] Admin: 11/08/21 20:01 Dose: 7.5 mg Documented by: [id number] Multivitamins (Multivitamin Tab) 1 tab PO QAM MARSHA Stop: 12/08/21 08:59 Last Admin: 11/15/21 08:48 Dose: 1 tab Documented by: [id number] Admin: 11/14/21 09:07 Dose: 1 tab Documented by: [id number] Admin: 11/13/21 09:11 Dose: 1 tab Documented by: [id number] Admin: 11/12/21 08:36 Dose: 1 tab Documented by: [id number] Admin: 11/11/21 08:14 Dose: 1 tab Documented by: [id number] Admin: 11/10/21 08:19 Dose: 1 tab Documented by: [id number] Admin: 11/09/21 07:32 Dose: 1 tab Documented by: [id number] Admin: 11/08/21 07:58 Dose: 1 tab Documented by: [id number] Simvastatin (Simvastatin 40 Mg Tab) 40 mg PO HS MARSHA Stop: 12/08/21 20:59 Last Admin: 11/14/21 20:30 Dose: 40 mg Documented by: [id number] Admin: 11/13/21 20:13 Dose: 40 mg Documented by: [id number] Admin: 11/12/21 20:03 Dose: 40 mg Documented by: [id number] Admin: 11/11/21 19:43 Dose: 40 mg Documented by: [id number] Admin: 11/10/21 20:09 Dose: 40 mg Documented by: [id number] Admin: 11/09/21 20:55 Dose: 40 mg Documented by: [id number] Admin: 11/08/21 20:01 Dose: 40 mg Documented by: [id number] Thiamine HCl (Thiamine Hcl 100 Mg Tab) 100 mg PO QAM MARSHA Stop: 12/08/21 08:59 Last Admin: 11/15/21 08:48 Dose: 100 mg Documented by: [id number] Admin: 11/14/21 09:07 Dose: 100 mg Documented by: [id number] Admin: 11/13/21 09:10 Dose: 100 mg Documented by: [id number] Admin: 11/12/21 08:37 Dose: 100 mg Documented by: [id number] Admin: 11/11/21 08:14 Dose: 100 mg Documented by: [id number] Admin: 11/10/21 08:19 Dose: 100 mg Documented by: [id number] Admin: 11/09/21 07:33 Dose: 100 mg Documented by: [id number] Admin: 11/08/21 07:58 Dose: 100 mg Documented by: [id number] Venlafaxine HCl (Venlafaxine Hcl Xr 150 Mg Capxr) [facility] Stop: 12/08/21 08:59 Last Admin: 11/15/21 08:49 Dose: 300 mg Documented by: [id number] Admin: 11/14/21 09:08 Dose: 300 mg Documented by: [id number] Admin: 11/13/21 09:11 Dose: 300 mg Documented by: [id number] Admin: 11/12/21 08:37 Dose: 300 mg Documented by: [id number] Admin: 11/11/21 08:14 Dose: 300 mg Documented by: [id number] Admin: 11/10/21 08:19 Dose: 300 mg Documented by: [id number] Admin: 11/09/21 07:32 Dose: 300 mg Documented by: [id number] Admin: 11/08/21 07:58 Dose: 300 mg Documented by: [id number] Coding Level of Care Code 25038 Inpt Consult Level 3 Diagnoses MDD (major depressive disorder), recurrent episode F33.9 Schizophrenia F20.9 Schizophrenia type: unspecified Time Spent (min) 40
--- NOTE | 2021-11-15 17:45 | Hospitalist Progress Note ---
Date of Service November 15, 2021 Assessment & Plan (1) Complicated UTI (urinary tract infection): Plan: (1) Complicated UTI (urinary tract infection): Plan: History urinary retention status post Ortiz catheter placement at [facility] ER / uti-started on ceftriaxone, transition to cefdinir 11/09 Urine culture from [place] [facility] reveals no growth UCx from [facility] no growth He is now spontaneously voiding after Ortiz removal 11/10 s/p antibiotic. (2) Acute urinary retention: Plan: Likely secondary to acute infection vs medication side effect. Resolved. (3) Schizophrenia: Plan: chronic, worsened depression recently including hallucination and paranoia. Sent to [facility] psychiatric facility prior to arrival. Admits to worsened depression symptoms, promise over the past week. Cont current therapy including Effexor, Mirtazapine and Clozapine. He has a very flat affect. Reports eating. Cont. to encourage him to eat. Nutrition following. Family doesn't want patient to go to [facility], Psychiatry consulted, inpatient psychiatry admission warranted due to worsening depression w/ decreased care for self including decreased po intake. Pt's dtr has psychiatry POA, psychiatry liasion along w/ CM assisting w/ placement. d/w psychiatry, psych liason making referrals for inpatient psych admissions, if pt changes mind and wants to go home, he will have to go AMA. (4) Dehydration: Plan: Not drinking or eating much. Lack of appetite seems to be related to depression. (5) Alcohol abuse: Plan: Reported on scanned history taken at outside ER. Per daughter, she reports that father has a tendency to abuse alcohol. There are no signs/symptoms of withdrawal at this time. (6) DVT prophylaxis: Plan: Lovenox Full Code Dispo-medically stable for discharge, needs inpatient psychiatric admission, psych liason helping w/ referrals, cm to assist w/ dc planning. Admission and Anticipated Discharge Date Admission Date: November 08, 2021 Subjective Patient seen and examined at bedside as a follow-up of complicated UTI and acute urinary retention. Patient was lying in bed, on room air, AOx3, NAD, no new acute events overnight. Flat affect, minimal eye contact. Patient denies any headache/dizziness/chest pain/palpitations/belly pain/other ROS. Patient reports eating okay and having one loose stool yesterday. Per RN, pt eating little, no acute events overnight, she is making efforts to encourage him to eat and drink. Physical Exam Physical Exam: GENERAL: Alert and oriented x3. NAD, on RA. HEENT: No pallor, no icterus. Pupils equal, round and reactive to light. Oral mucosa moist. NECK: No JVD, no neck masses. HEART: S1 and S2 heard. Regular rate and rhythm. No murmur, no gallop. RESPIRATORY SYSTEM: Normal AP diameter. No accessory muscle use. No wheezing, no crackles. ABDOMEN: Soft, bowel sounds present, nontender, no distention. CENTRAL NERVOUS SYSTEM: No facial droop. Speech is clear. Obeys simple commands. Moves extremities. EXTREMITIES: No edema, no erythema seen. Results & Data Results & Data ([facility]) Vital Signs (Past 12 Hours) Vital Signs Temp Pulse Resp BP Pulse Ox 11/15/21 14:29 36.6 C 94 H 16 138/92 94 11/15/21 07:37 36.6 C 73 16 97/64 L 94
[2021-11-15] MEDS: SIMVASTATIN 40 MG TAB PO SCH (22:07)
[2021-11-15] MEDS: MIRTAZAPINE TAB 15 MG TAB PO SCH (22:07)
[2021-11-15] MEDS: cloZAPine 100 MG TAB PO SCH (22:08)
[2021-11-16] MEDS: FOLIC ACID 1 MG TAB PO SCH (09:51)
[2021-11-16] MEDS: cloZAPine 25 MG TAB PO SCH (09:51)
[2021-11-16] MEDS: THIAMINE HCL 100 MG TAB PO SCH (09:52)
[2021-11-16] MEDS: ENOXAPARIN INJ 40 MG/0.4 ML SYR SQ SCH (09:52)
[2021-11-16] MEDS: VENLAFAXINE HCL XR 150 MG CAPXR PO SCH (09:52)
[2021-11-16] MEDS: MULTIVITAMIN TAB PO SCH (09:52)
--- NOTE | 2021-11-16 15:18 | Hospitalist Progress Note ---
Date of Service November 16, 2021 Assessment & Plan (1) Complicated UTI (urinary tract infection): Plan: (1) Complicated UTI (urinary tract infection): Plan: History urinary retention status post Ortiz catheter placement at [facility] ER Urine Cx from [place] [facility] and [facility]: no growth s/p antibiotic course. He is now spontaneously voiding after Ortiz removal 11/10 (2) Acute urinary retention: Plan: Likely secondary to acute infection vs medication side effect. Resolved. (3) Schizophrenia: Plan: chronic, worsened depression recently including hallucination and paranoia. Sent to [facility] psychiatric facility prior to arrival. Admits to worsened depression symptoms, rpomise over the past week [employer]. Cont current therapy including Effexor, Mirtazapine and Clozapine. He has a very flat affect. Reports eating. Cont. to encourage him to eat. Nutrition following. Family doesn't want patient to go to [facility], Psychiatry consulted, inpatient psychiatry admission warranted due to worsening depression w/ decreased care for self including decreased po intake. Pt's dtr has psychiatry POA, psychiatry liasion along w/ CM assisting w/ placement. d/w psychiatry, psych liason making referrals for inpatient psych admissions, if pt changes mind and wants to go home, he will have to go AMA. If pt is still cleared medically by tomorrow (which he is now) and if bed available at our [facility] unit, he will likely be taken in there for inpatient psychiatric admission. (4) Dehydration: Plan: Not drinking or eating much. Lack of appetite seems to be related to depression. (5) Alcohol abuse: Plan: Reported on scanned history taken at outside ER. Per daughter, she reports that father has a tendency to abuse alcohol. There are no signs/symptoms of withdrawal at this time. (6) DVT prophylaxis: Plan: Lovenox Full Code Dispo-medically stable for discharge, needs inpatient psychiatric admission, psych liason helping w/ referrals, cm to assist w/ dc planning. Admission and Anticipated Discharge Date Admission Date: November 08, 2021 Subjective Patient seen and examined at bedside as a follow-up of complicated UTI and acute urinary retention. Patient was lying in bed, on room air, AOx3, NAD, no new acute events overnight. Flat affect, maintained eye contact during most of our conversation today. Patient denies any headache/dizziness/chest pain/palpitations/belly pain/other ROS. Patient reports eating okay but per RN still eating little. Denies loose stool. Physical Exam Physical Exam: GENERAL: Alert and oriented x3. NAD, on RA. Flat affect. HEENT: No pallor, no icterus. Pupils equal, round and reactive to light. Oral mucosa moist. NECK: No JVD, no neck masses. HEART: S1 and S2 heard. Regular rate and rhythm. No murmur, no gallop. RESPIRATORY SYSTEM: Normal AP diameter. No accessory muscle use. No wheezing, no crackles. ABDOMEN: Soft, bowel sounds present, nontender, no distention. CENTRAL NERVOUS SYSTEM: No facial droop. Speech is clear. Obeys simple commands. Moves extremities. EXTREMITIES: No edema, no erythema seen. Results & Data Results & Data ([facility]) Vital Signs (Past 12 Hours) Vital Signs Temp Pulse Resp BP Pulse Ox 11/16/21 14:45 36.8 C 91 H 16 127/80 92 11/16/21 07:59 36.6 C 84 16 134/86 94
[2021-11-16] MEDS: D5W AND 1/2NSS 1,000 ML IV SCH (16:36)
[2021-11-16] MEDS: cloZAPine 100 MG TAB PO SCH (21:01)
[2021-11-16] MEDS: SIMVASTATIN 40 MG TAB PO SCH (21:01)
[2021-11-16] MEDS: MIRTAZAPINE TAB 15 MG TAB PO SCH (21:01)
[2021-11-17] MEDS: D5W AND 1/2NSS 1,000 ML IV SCH (06:02)
[2021-11-17 08:26] LABS: BUN Creatinine Ratio 26.9 (10-20); Calcium 9.3 mg/dl (8.5-10.1); Creatinine Clr Calc Pharmacy 108.5 ml/min; Est GFR (African American) 107.5 ml/min; Est GFR (Non-African American) 92.8 ml/min; Potassium 3.4 mmol/L (3.5-5.1)
[2021-11-17 08:31] LABS: Hematocrit (blood only) 44.6 % (42-52); Hemoglobin 15.1 g/dL (14.0-18.0); Mean Corpuscular Hemoglobin 31.1 pg (25-34); Mean Corpuscular Hgb Conc 33.9 g/dL (32-36); Mean Corpuscular Volume 91.8 fL (80-100); Mean Platelet Volume 10.5 fL (7.4-10.4); Platelet Count 268 K/uL (130-400); RDW Coefficient of Variation 13.6 % (11.5-14.5); RDW Standard Deviation 45.8 fL (36.4-46.3); Red Blood Count 4.86 M/uL (4.7-6.1); White Blood Count 6.22 K/uL (4.8-10.8)
[2021-11-17] MEDS ORDERED: POTASSIUM CHLORIDE CRTAB 20 MEQ TABCR PO STA (08:45)
[2021-11-17] MEDS: cloZAPine 25 MG TAB PO SCH (08:50)
[2021-11-17] MEDS: VENLAFAXINE HCL XR 150 MG CAPXR PO SCH (08:50)
[2021-11-17] MEDS: THIAMINE HCL 100 MG TAB PO SCH (08:50)
[2021-11-17] MEDS: FOLIC ACID 1 MG TAB PO SCH (08:51)
[2021-11-17] MEDS: ENOXAPARIN INJ 40 MG/0.4 ML SYR SQ SCH (08:51)
[2021-11-17] MEDS: MULTIVITAMIN TAB PO SCH (08:51)
--- NOTE | 2021-11-17 14:01 | Discharge Summary ---
Date of Service November 17, 2021 Admission HPI Per Admitting Provider History obtained from patient and records. Medical history significant for HTN, hyperlipidemia, schizoaffective disorder, mood disorder, medication noncompliance, past tobacco abuse. Patient is a resident of [place] brought to [facility] ER in [place], [place] 2 days ago by his daughter because of paranoia and command hallucinations. Patient has not been taking his psych meds for about 5 days as per daughter. Patient not drinking or eating as much. Patient denies suicidality. Patient complaint of urinary retention symptoms. Ortiz catheter placed at the ER. UA showed nitrites. Bactrim initiated for UTI. Patient subsequently transferred to the local [facility] for voluntary inpatient psychiatric care yesterday. Upon arrival at local psychiatric facility, patient noted to be confused and diaphoretic. Patient sent to ER for evaluation. IV ceftriaxone administered at the ER for UTI. Patient feels much clearer. Denies chest pain, shortness of breath, abdominal pain, flank pain, hematuria, fever, chills. No prior episodes of urine retention as per patient. Medical History as above Surgical History : Hernia repair Family History : Depression, DM Personal/Social history : Past tobacco abuse, ongoing alcohol use, prior work at a [employer] Admission Exam Per Admitting Provider GENERAL: Comfortable, obese, no respiratory distress SKIN: Normal color, warm HEENT: [place] palpebral conjunctivae, no ptosis, dry buccal mucosa NECK : Supple, no tenderness CHEST : CTA, no tenderness HEART : RRR, no obvious murmurs ABDOMEN: Some distention, nontender EXTREMITIES : No LE swelling/tenderness, no other conspicuous deformities noted NEUROLOGIC : Coherent, no facial asymmetry, no other gross focality Principal Diagnosis Schizophrenia, chronic worsening depression Decreased appetite Alcohol abuse Complicated UTI/acute urinary retention Discharge Exam GENERAL: Alert and oriented x3. NAD, on RA. Flat affect. HEENT: No pallor, no icterus. Pupils equal, round and reactive to light. Oral mucosa moist. NECK: No JVD, no neck masses. HEART: S1 and S2 heard. Regular rate and rhythm. No murmur, no gallop. RESPIRATORY SYSTEM: Normal AP diameter. No accessory muscle use. No wheezing, no crackles. ABDOMEN: Soft, bowel sounds present, nontender, no distention. CENTRAL NERVOUS SYSTEM: No facial droop. Speech is clear. Obeys simple commands. Moves extremities. EXTREMITIES: No edema, no erythema seen. Discharge Data Allergies Allergy/AdvReac Type Severity Reaction Status Date / Time No Known Allergies Allergy Verified 11/07/21 22:25 Consultations 11/07/21 22:58 ED Decision to Admit Stat 11/08/21 02:43 Consult Urology Routine 11/13/21 12:25 Consult Psychiatry Routine Ordered Studies 11/07/21 19:36 CT abd pelvis IV con only Stat Hospital Course (1) Complicated UTI (urinary tract infection): 66-year-old gentleman was managed for the following while in hospital: (1) Complicated UTI (urinary tract infection): Plan: History urinary retention status post Ortiz catheter placement at [facility] ER Urine Cx from [facility] and [facility]: no growth s/p antibiotic course. He is now spontaneously voiding after Ortiz removal 11/10 (2) Acute urinary retention: Plan: Likely secondary to acute infection vs medication side effect. Resolved. (3) Schizophrenia: Plan: chronic, worsened depression recently including hallucination and paranoia. Sent to [facility] psychiatric facility prior to arrival. Admits to worsened depression symptoms, promise over the past week [employer]. Cont current therapy including Effexor, Mirtazapine and Clozapine. He has a very flat affect, slow improvement with interaction and eye contact during conversation. Reports eating. Cont. to encourage him to eat. Nutrition following. Patient is being discharged to U unit for inpatient psychiatric admission. (4) Dehydration: Plan: Not drinking or eating much. Lack of appetite seems to be related to depression. (5) Alcohol abuse: Plan: Reported on scanned history taken at outside ER. Per daughter, she reports that father has a tendency to abuse alcohol. There are no signs/symptoms of withdrawal at this time. (6) DVT prophylaxis: Plan: Lovenox Full Code Patient being discharged to U unit with following instruction at the point of discharge: Follow-up with your primary care physician within a week time upon discharge from hospital. Follow-up with your psychiatry doctor as an outpatient. While in U unit, recommend repeating labs every 2 days (if patient is not eating much) to assess need for any oral electrolyte supplement. Take your medications as prescribed. Total Time Total Time Spent Total Time Spent (In Minutes): 35 Discharge Plan Discharge Items Patient Disposition: Transfer Behavioral Health Fac Reason For Visit: ENCEPHALOPATHY, COMP UTI Discharge Diagnosis: Schizophrenia, chronic worsening depression Decreased appetite Alcohol abuse Complicated UTI/acute urinary retention Activity: Resume your previous activity Non-emergency contact: Primary Care Provider Call non-emergency contact if: you have any medication questions, your symptoms worsen and your temperature is above 101 Follow-up/Referrals: PCP,NO [Primary Care Provider] - Diet: Regular Addtl Attending Provider Instructions: Follow-up with your primary care physician within a week time upon discharge from hospital. Follow-up with your psychiatry doctor as an outpatient. While in BHU unit, recommend repeating labs every 2 days (if patient is not eating much) to assess need for any oral electrolyte supplement. Take your medications as prescribed. Pending Studies at Discharge: No Stand-Alone Forms: My [facility], Smoking Cessation Medications and DC Order Prescriptions: Continued clozapine 100 mg tablet 200 mg PO HS RF: 0 venlafaxine 150 mg capsule,extended release 24hr 300 mg PO QAM RF: 0 thiamine HCl (vitamin B1) 100 mg tablet 100 mg PO QAM RF: 0 hydroxyzine HCl 50 mg tablet 50 mg PO QID PRN (Reason: Anxiety) RF: 0 simvastatin 20 mg tablet 40 mg PO HS RF: 0 folic acid 1 mg tablet 1 mg PO QAM RF: 0 mirtazapine 7.5 mg tablet 7.5 mg PO HS RF: 0 clozapine 50 mg tablet 50 mg PO QAM RF: 0 multivitamin with folic acid [Tab-A-Kimberley] 400 mcg tablet 1 tab PO QAM RF: 0 Discharge Orders: Discharge Order (Routine); Ordered 11/17/21 Ordered By: Amanda Deluca Admission Data Admit Date/Time: 11/08/21 02:40 Attending Provider: Amanda Deluca Admit Provider: Craig Atlamirano Primary Care Provider: PCP,NO Other Providers: Craig Altamirano ; Blas Macias ; Cassius Chacko ; Pete Plunkett ; Mackenzie Dias ; Matt Stephen ; Amy Sy ; Lizette Jones ; Michael Diamond ; Marvin Rodriguez ; Katy Barth ; Miguel Mercedes ; Tawana Meyer ; Taylor Aquino ; Vera Daniels
== END 2021-11-17 15:04 | DRG 690 ==
LOC: ED 19:03 → 2N 11-08 02:40 → SUATTDRO 11-08 02:40 → 2N 11-08 03:34 → 3W 11-09 21:03

== ENCOUNTER 2021-11-17 10:15 | Inpatient (IN) ==
[2021-11-17] MEDS ORDERED: ACETAMINOPHEN 325 MG TAB PO PRN (12:26)
[2021-11-17] MEDS ORDERED: ALUMINUM/MAGNESIUM SUSP 30 ML UDC PO PRN (12:26)
[2021-11-17] MEDS ORDERED: hydrOXYzine HCl 25 MG TAB PO PRN ×2 (12:26)
[2021-11-17] MEDS ORDERED: BISMUTH SUBSALICYLATE LIQD 236 ML PO PRN (12:26)
[2021-11-17] MEDS ORDERED: SODIUM CHLORIDE 0.65% NA SOLN 45 ML (OCEAN) PRN (12:26)
[2021-11-17] MEDS ORDERED: MAGNESIUM HYDROXIDE SUSP 30 ML UDC PO PRN (12:26)
--- NOTE | 2021-11-17 16:22 | History & Physical ---
Date of Service November 17, 2021 Impression / Recommendations Impression 66 yo man with history of schizoaffective disorder presents for worsening depression with decreased po intake and self-care in the context of worsening command auditory hallucinations causing him to stop his psychiatric medications and recent complicated UTI. Diagnostically consistent with acute exacerbation of schizoaffective disorder and MDD, recurrent with likely contribution from possible delirium with recent UTI. The patient is deemed unstable and requires psychiatric hospitalization for safety and stabilization, medication management and development of further coping skills. Discussed medication treatment options. Discussed risks, benefits and alternatives. Patient would like to continue his current medications of clozapine, Effexor XR and mirtazapine which were recently restarted and seem to be helping with his symptoms. Reviewed side effects including but not limited to: fatigue, dizziness with mirtazapine, GI, ADAMS, HTN with Effexor and anticholinergic side effects, as well as movement (TD, NMS), cardiac (QTc prolongation), and metabolic (stroke, insulin resistance) and necessity for fasting lipid and glcuose labwork, clozapine level, monthly ANC and AIMS done with score of 0. (1) Schizoaffective disorder: (2) MDD (major depressive disorder), recurrent episode: 11/17/21: The patient was admitted to the [facility] ([facility]) on q15 min checks (behavioral with suicide precautions) for safety. The patient will participate in group, recreational, and milieu therapies and will be offered additional individual and family sessions as clinically appropriate. -Reviewed ANC from 11/14/21, continue clozapine 50mg qAM & 200mg qhs -Fasting lipid panel, glucose qAM and clozapine level qhs before evening dose -Continue Effexor XR 300mg qd and mirtazapine 7.5 mg qhs (could consider increasing in coming days if appetite/po intake remains low) -Continue thiamine/folic acid/MVM given recent poor po intake -Continue simvastatin -bowel meds prn Inventory Assets Strengths: supportive family, willing to seek treatment, has housing, lots of outpatient services Needs: additional coping skills, increased po intake, medication adjustments/monitoring Suicide Risk Level Suicide Risk Level: Moderate (q15 min suicide checks) Suicide Risk Level Comments: Denying SI but with major depression and poor po intake and periods of command AH (but never telling him to or attempt SI). Able to safety contract, feels safe on the unit, agrees to go to staff if AH worsen or intensify or if he feels unsafe or has thoughts of SI or cAH telling him to hurt himself. Risk Factors Assessment Male: Yes : Yes Do You Have Access To A Gun?: No Health Problems: Yes Mental Health Diagnoses: Yes Previous Attempt: No Previous Psychiatric Hospitalization: Yes Hopelessness: Yes Protective Factors Assessment Stable Relationships: Yes Supportive Family: Yes Good Rapport with Provider: Yes Psychiatric History Identifying Data FERNIE GASPAR is a 66-year-old man who currently lives in [place] alone, has a history of schizoaffective disorder, and was admitted on 11/17/21 12:26 on a 201 voluntary commitment for worsening auditory hallucinations and depression with poor po intake. Chief Complaint "I can't get into that". History of Present Illness Fernie presents for worsening command auditory hallucinations and depression in the context of schizoaffective disorder. For many years, especially since age 48, he has experienced chronic auditory hallucinations which at times become command in nature and instruct him not to take his medications or not to care for himself and the voices threaten that if he doesnt listen to the voices or talks about them then someone he cares about will . Sometimes the voices also tell him not to eat or drink. About two weeks ago in this context he stopped his medications for about 5 days and the voices became increasingly intense and he became depressed to the point of not eating or drinking or caring for his self- needs. He was taken to his local hospital in [facility] and referred to the [facility] for inpatient psychiatry but on arrival for psychiatric intake he was found to be confused and with urinary retention concerning for acute delirium and UTI and admitted medically at [facility]. Since 11/08/2021 he has been admitted medically and received treatment for a UTI and IV fluids. His medications of clozapine, Effexor ER and mirtazapine were continued. Recently changed in frequently of now getting his ANC checked monthly for clozapine. Today Fernie reports ongoing depression with decreased appetite, low energy, decreased motivation, anhedonia, decreased sleep and hopelessness. He denies SI. He continues to have very limited po intake even with encouragement from nursing staff on the medical floor requiring IV fluids and potassium supplementation. Fernie endorses ongoing auditory hallucinations but becomes uncomfortable discussing the nature of the voices noting I cant get into all that. He denies any current medication side effects. He denies HI. Psychiatric ROS notable for history of alcohol use for which folic acid and thiamine was started on the medical floor but he never scored on AWSS or required any treatment for withdrawal symptoms. He denies any excessive alcohol use though cannot specifically quantify recent use for me. He cannot identify any history of sindy but chart review of outside records notable for schizoaffective disorder diagnosis, seems predominantly depressive episodes. History of visual hallucinations per outside records, none currently. Past Psychiatric History Current Psychiatric Diagnosis: Schizoaffective disorder Outpatient Services: Psychiatrist, Dr. Gutiérrez, therapist, Liana, and manager of case management through ACT team in [facility] Previous Psych Admissions: Last inpatient stay was about 1.5 years ago for short stay at [facility], he estimates 10 prior psych hospitalizations including at [facility]. About 2 years ago was admitted to [facility] for 1 year. Do You Have Access To A Gun?: No History of Previous Suicide Attempt: No Past Medication Trials: unknown Past Head Trauma/Neuro History History of Concussion/Seizure: No Allergies Allergy/AdvReac Type Severity Reaction Status Date / Time No Known Allergies Allergy Verified 11/07/21 22:25 Home Medications Medication Instructions Recorded Confirmed Type clozapine 100 mg tablet 200 mg PO HS 11/07/21 11/07/21 History clozapine 50 mg tablet 50 mg PO QAM 11/07/21 11/07/21 History folic acid 1 mg tablet 1 mg PO QAM 11/07/21 11/07/21 History hydroxyzine HCl 50 mg tablet 50 mg PO QID PRN 11/07/21 11/07/21 History mirtazapine 7.5 mg tablet 7.5 mg PO HS 11/07/21 11/07/21 History multivitamin with folic acid 400 1 tab PO QAM 11/07/21 11/07/21 History mcg tablet (Tab-A-Kimberley) simvastatin 20 mg tablet 40 mg PO HS 11/07/21 11/07/21 History thiamine HCl (vitamin B1) 100 mg 100 mg PO QAM 11/07/21 11/07/21 History tablet venlafaxine 150 mg 300 mg PO QAM 11/07/21 11/07/21 History capsule,extended release 24 hr Family History Family History of: Doesn't Know Alcohol History Hx of Alcohol Use Over the Past 12 Months: Yes He denies any recent use, his daughter had raised concern with the medical team for potential overuse in the past Smoking Use Smoking Status: Former smoker Substance History denies Personal History Living Arrangements: Home Employment Status: Disabled Marital Status: Number Of Children: 3 children, 1 son and two daughters Beliefs That Will Affect Care: None Current Legal Problems: No Hx Legal Problems: No Additional Comments: Daughter Megan is his health and psychiatric POA Patient History Medical History (Updated 11/17/21 @ 16:11 by Tawana Meyer MD) Hyperlipidemia Schizoaffective disorder Schizophrenia Urinary retention Family History Other Family history non-contributory Social History Smoking Status: Former smoker Hx Alcohol Use: Yes Alcohol type: beer Hx Substance Use: No Preferred Language: [place] Leonean Communication Ability: Effective 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 Beliefs That Will Affect Care: None marital status: Single Current Living Situation: Alone Feels Safe at Home: Yes Assistive Devices: None Review of Systems Review of Systems: All systems reviewed & are unremarkable except as noted in HPI & below Physical Exam Psychiatric: Orientation: alert and oriented x 3 Apperance: appropriately dressed and + disheveled Eye Contact: + poor eye contact Motor Behavior: no abnormal motor movements and + psychomotor retardation Speech: normal rate/rhythm/volume of speech (brief, non-spontaneous) Affect: + flat affect Mood: + depressed mood Thought Process: + concrete thought process Thought Content: reality based without delusions Suicidal Thoughts: denies suicidal thoughts Homicidal Thoughts: denies homicidal thoughts [place] ucinations: + auditory hallucinations ("I always hear them"); no visual hallucinations Cognition: recent memory grossly intact, remote memory grossly intact, attention grossly intact and language grossly intact Insight: + limited insight Judgement: + limited judgement Exam Statement: A physical exam was performed on the medical floor by Dr. Deluca for the purposes of medical clearance. I accept that physical as correct and adequate for the purposes of the inpatient physical exam. Results & Data ([facility]) Laboratory Results recent labwork reviewed including ANC Current Inpatient Medications Current Inpatient Medications: Current Inpatient Medications Acetaminophen (Acetaminophen 325 Mg Tab) 650 mg PO Q4H PRN PRN Reason: Headache or Minor Fever Stop: 12/17/21 12:25 Al Hydrox/Mg Hydrox/Simethicone (Aluminum/Magnesium Susp 30 Ml Udc) 30 ml PO Q4H PRN PRN Reason: GI Upset Stop: 12/17/21 12:25 Bismuth Subsalicylate (Bismuth Subsalicylate Liqd 236 Ml) 15 ml PO PRN PRN PRN Reason: Loose Stool Stop: 12/17/21 12:25 Hydroxyzine HCl (Hydroxyzine Hcl 25 Mg Tab) 50 mg PO HSZ PRN PRN Reason: Insomnia Stop: 12/17/21 12:25 Hydroxyzine HCl (Hydroxyzine Hcl 25 Mg Tab) 25 mg PO Q4H PRN PRN Reason: Anxiety Stop: 12/17/21 12:25 Magnesium Hydroxide (Magnesium Hydroxide Susp 30 Ml Udc) 30 ml PO DAILY PRN PRN Reason: Constipation Stop: 12/17/21 12:25 Sodium Chloride (Sodium Chloride 0.65% Na Soln 45 Ml ([place])) 1 - 2 sprays NA PRN PRN PRN Reason: Nasal Dryness/Congestion Stop: 12/17/21 12:25
[2021-11-17] MEDS ORDERED: DOCUSATE SODIUM 100 MG CAP PO PRN (16:23)
[2021-11-17] MEDS: SIMVASTATIN 40 MG TAB PO SCH (22:09)
[2021-11-17] MEDS: MIRTAZAPINE TAB 15 MG TAB PO SCH (22:11)
[2021-11-17] MEDS: cloZAPine 100 MG TAB PO SCH (22:11)
[2021-11-18] MEDS: cloZAPine 25 MG TAB PO SCH (09:36)
[2021-11-18] MEDS: VENLAFAXINE HCL XR 150 MG CAPXR PO SCH (09:37)
[2021-11-18] MEDS: THIAMINE HCL 100 MG TAB PO SCH (09:37)
[2021-11-18] MEDS: MULTIVITAMIN TAB PO SCH (09:37)
[2021-11-18] MEDS: FOLIC ACID 1 MG TAB PO SCH (09:37)
--- NOTE | 2021-11-18 12:55 | Psychiatric Progress Note ---
Date of Service November 18, 2021 Impression / Recommendations Impression 66 yo man with history of schizoaffective disorder presents for worsening depression with decreased po intake and self-care in the context of worsening command auditory hallucinations causing him to stop his psychiatric medications and recent complicated UTI. Diagnostically consistent with acute exacerbation of schizoaffective disorder and MDD, recurrent with likely contribution from possible delirium with recent UTI. The patient is deemed unstable and requires psychiatric hospitalization for safety and stabilization, medication management and development of further coping skills. 11/18/21: slight improvement in PO, reattempt fasting labs in am. (1) Schizoaffective disorder: (2) MDD (major depressive disorder), recurrent episode: 11/18/21: continue current meds and tx plan. 11/17/21: The patient was admitted to the [facility] ([facility] health [facility]) on q15 min checks (behavioral with suicide precautions) for safety. The patient will participate in group, recreational, and milieu therapies and will be offered additional individual and family sessions as clinically appropriate. -Reviewed ANC from 11/14/21, continue clozapine 50mg qAM & 200mg qhs -Fasting lipid panel, glucose qAM and clozapine level qhs before evening dose -Continue Effexor XR 300mg qd and mirtazapine 7.5 mg qhs (could consider increasing in coming days if appetite/po intake remains low) -Continue thiamine/folic acid/MVM given recent poor po intake -Continue simvastatin -bowel meds prn Inventory Assets Strengths: supportive family, willing to seek treatment, has housing, lots of outpatient services Needs: additional coping skills, increased po intake, medication adjustments/monitoring Suicide Risk Level Suicide Risk Level: Moderate (q15 min suicide checks) Suicide Risk Level Comments: Denying SI but with major depression and poor po intake and periods of command AH (but never telling him to or attempt SI). Able to safety contract, feels safe on the unit, agrees to go to staff if AH worsen or intensify or if he feels unsafe or has thoughts of SI or cAH telling him to hurt himself. Risk Factors Assessment Male: Yes : Yes Do You Have Access To A Gun?: No Health Problems: Yes Mental Health Diagnoses: Yes Previous Attempt: No Previous Psychiatric Hospitalization: Yes Hopelessness: Yes Protective Factors Assessment Stable Relationships: Yes Supportive Family: Yes Good Rapport with Provider: Yes Interval History Identifying Information FERNIE HUBERT is a 66-year-old man who currently lives in [place] alone, has a history of schizoaffective disorder, and was admitted on 11/17/21 12:26 on a 201 voluntary commitment for worsening auditory hallucinations and depression with poor po intake on transfer from medical floor. Chief Complaint "I'm good I guess, I have ACT team, they help". Review of Systems Sleep Information Total Hours of Sleep: 36.4 Sleep Comments: pt on q-15 minute checks Meal Information Percent Meal Consumed - Breakfast: 5 Percent Meal Consumed - Dinner: 50 Subjective Subjective Patient was seen & assessed and interval progress reviewed with nursing and social. Ate 50% of meals last pm, has Boost with meals. Did not shower yesterday but did today. Physical Exam Psychiatric Orientation: alert and oriented x 3 Apperance: appropriately dressed and + disheveled Eye Contact: + poor eye contact Motor Behavior: no abnormal motor movements and + psychomotor retardation Speech: normal rate/rhythm/volume of speech (brief, non-spontaneous) Affect: + flat affect Mood: + depressed mood Thought Process: + concrete thought process Thought Content: reality based without delusions Suicidal Thoughts: denies suicidal thoughts Homicidal Thoughts: denies homicidal thoughts Hallucinations: + auditory hallucinations ("I always hear them"); no visual hallucinations Cognition: recent memory grossly intact, remote memory grossly intact, attention grossly intact and language grossly intact Insight: + limited insight Judgement: + limited judgement Vital Signs (Past 24 Hours) Last Vital Signs Temp 36.4 C L 11/18/21 06:43 Pulse 81 11/18/21 06:43 Resp 16 11/18/21 06:43 BP 96/62 L 11/18/21 06:44 Results & Data ([facility]) Laboratory Results Laboratory Results - last 24 hr 11/17/21 11/17/21 20:04 Unknown Clozapine Pending Norclozapine Pending SARS-CoV-2, RNA, NAAT NEGATIVE Current Inpatient Medications Current Inpatient Medications: Current Inpatient Medications Acetaminophen (Acetaminophen 325 Mg Tab) 650 mg PO Q4H PRN PRN Reason: Headache or Minor Fever Stop: 12/17/21 12:25 Al Hydrox/Mg Hydrox/Simethicone (Aluminum/Magnesium Susp 30 Ml Udc) 30 ml PO Q4H PRN PRN Reason: GI Upset Stop: 12/17/21 12:25 Bismuth Subsalicylate (Bismuth Subsalicylate Liqd 236 Ml) 15 ml PO PRN PRN PRN Reason: Loose Stool Stop: 12/17/21 12:25 Clozapine (Clozapine 100 Mg Tab) 200 mg PO [facility] Stop: 12/17/21 21:59 Last Admin: 11/17/21 22:11 Dose: 200 mg Documented by: Clozapine (Clozapine 25 Mg Tab) 50 mg PO [facility] Stop: 12/18/21 08:59 Last Admin: 11/18/21 09:36 Dose: 50 mg Documented by: Docusate Sodium (Docusate Sodium 100 Mg Cap) 100 mg PO BID PRN PRN Reason: Constipation Stop: 12/17/21 20:59 Folic Acid (Folic Acid 1 Mg Tab) 1 mg PO [facility] Stop: 12/18/21 08:59 Last Admin: 11/18/21 09:37 Dose: 1 mg Documented by: Magnesium Hydroxide (Magnesium Hydroxide Susp 30 Ml Udc) 30 ml PO DAILY PRN PRN Reason: Constipation Stop: 12/17/21 12:25 Mirtazapine (Mirtazapine Tab 15 Mg Tab) 7.5 mg PO [facility] Stop: 12/17/21 21:59 Last Admin: 11/17/21 22:11 Dose: 7.5 mg Documented by: Multivitamins (Multivitamin Tab) 1 tab PO [facility] Stop: 12/18/21 08:59 Last Admin: 11/18/21 09:37 Dose: 1 tab Documented by: Simvastatin (Simvastatin 40 Mg Tab) 40 mg PO [facility] Stop: 12/17/21 21:59 Last Admin: 11/17/21 22:09 Dose: 40 mg Documented by: Sodium Chloride (Sodium Chloride 0.65% Na Soln 45 Ml ([place])) 1 - 2 sprays NA PRN PRN PRN Reason: Nasal Dryness/Congestion Stop: 12/17/21 12:25 Thiamine HCl (Thiamine Hcl 100 Mg Tab) 100 mg PO [facility] Stop: 12/18/21 08:59 Last Admin: 11/18/21 09:37 Dose: 100 mg Documented by: Venlafaxine HCl (Venlafaxine Hcl Xr 150 Mg Capxr) 300 mg PO [facility] Stop: 12/18/21 08:59 Last Admin: 11/18/21 09:37 Dose: 300 mg Documented by: Mental Health & Subst Abuse Tx Claim Administrator Name of Claim Administrator: ACT Team in [facility] Post Discharge Appointments Primary Care Physician Name Of Family Doctor: [facility]
[2021-11-18] MEDS: MIRTAZAPINE TAB 15 MG TAB PO SCH (21:17)
[2021-11-18] MEDS: cloZAPine 100 MG TAB PO SCH (21:18)
[2021-11-18] MEDS: SIMVASTATIN 40 MG TAB PO SCH (21:18)
[2021-11-19] MEDS: THIAMINE HCL 100 MG TAB PO SCH (09:04)
[2021-11-19] MEDS: VENLAFAXINE HCL XR 150 MG CAPXR PO SCH (09:04)
[2021-11-19] MEDS: FOLIC ACID 1 MG TAB PO SCH (09:04)
[2021-11-19] MEDS: MULTIVITAMIN TAB PO SCH (09:04)
[2021-11-19] MEDS: cloZAPine 25 MG TAB PO SCH (09:04)
[2021-11-19 09:47] LABS: Chol HDL Ratio 5.4 (0-5)
--- NOTE | 2021-11-19 12:46 | Psychiatric Progress Note ---
Date of Service November 19, 2021 Impression / Recommendations Impression 66 yo man with history of schizoaffective disorder presents for worsening depression with decreased po intake and self-care in the context of worsening command auditory hallucinations causing him to stop his psychiatric medications and recent complicated UTI. Diagnostically consistent with acute exacerbation of schizoaffective disorder and MDD, recurrent with likely contribution from possible delirium with recent UTI. The patient is deemed unstable and requires psychiatric hospitalization for safety and stabilization, medication management and development of further coping skills. 11/19/21: slight improvement in PO, am sedation after Clozaril noted yesterday and today. (1) Schizoaffective disorder: (2) MDD (major depressive disorder), recurrent episode: 11/19/21: hold am clozaril tomorrow and consider shift to 250 mg hs. input from daughter re: baseline and level of support that family can provide when returns home. 11/18/21: continue current meds and tx plan. 11/17/21: The patient was admitted to the [facility] ([facility] mental health unit) on q15 min checks (behavioral with suicide precautions) for safety. The patient will participate in group, recreational, and milieu therapies and will be offered additional individual and family sessions as clinically appropriate. -Reviewed ANC from 11/14/21, continue clozapine 50mg qAM & 200mg qhs -Fasting lipid panel, glucose qAM and clozapine level qhs before evening dose -Continue Effexor XR 300mg qd and mirtazapine 7.5 mg qhs (could consider increasing in coming days if appetite/po intake remains low) -Continue thiamine/folic acid/MVM given recent poor po intake -Continue simvastatin -bowel meds prn Inventory Assets Strengths: supportive family, willing to seek treatment, has housing, lots of outpatient services Needs: additional coping skills, increased po intake, medication adjustments/monitoring Suicide Risk Level Suicide Risk Level: Moderate (q15 min suicide checks) Suicide Risk Level Comments: Denying SI but with major depression and poor po intake and periods of command AH (but never telling him to or attempt SI). Able to safety contract, feels safe on the unit, agrees to go to staff if AH worsen or intensify or if he feels unsafe or has thoughts of SI or cAH telling him to hurt himself. Risk Factors Assessment Male: Yes : Yes Do You Have Access To A Gun?: No Health Problems: Yes Mental Health Diagnoses: Yes Previous Attempt: No Previous Psychiatric Hospitalization: Yes Hopelessness: Yes Protective Factors Assessment Stable Relationships: Yes Supportive Family: Yes Good Rapport with Provider: Yes Interval History Identifying Information FERNIE GASPAR is a 66-year-old man who currently lives in [place] alone, has a history of schizoaffective disorder, and was admitted on 11/17/21 12:26 on a 201 voluntary commitment for worsening auditory hallucinations and depression with poor po intake on transfer from medical floor. Chief Complaint "I'm OK". Review of Systems Sleep Information Total Hours of Sleep: 7.75 Sleep Comments: pt on q-15 minute checks Meal Information Percent Meal Consumed - Breakfast: 0 Percent Meal Consumed - Lunch: 25 Percent Meal Consumed - Dinner: 30 Subjective Subjective Patient was seen & assessed and interval progress reviewed with nursing and social work. Cooperative with unit routines. PO intake fair, is sedated in am after medications. Otherwise does not appear to be responding to internal stimuli. Apparently was sleeping more during the day and awake at night and then not engaging with ACT team according to daughter. Physical Exam Psychiatric Orientation: alert and oriented x 3 Apperance: appropriately dressed and + disheveled Eye Contact: + poor eye contact Motor Behavior: no abnormal motor movements and + psychomotor retardation Speech: normal rate/rhythm/volume of speech (brief, non-spontaneous) Affect: + flat affect Mood: no depressed mood Thought Process: + concrete thought process Thought Content: reality based without delusions Suicidal Thoughts: denies suicidal thoughts Homicidal Thoughts: denies homicidal thoughts Hallucinations: no auditory hallucinations and no visual hallucinations Cognition: recent memory grossly intact, remote memory grossly intact, attention grossly intact and language grossly intact Insight: + limited insight Judgement: + limited judgement Vital Signs (Past 24 Hours) Last Vital Signs Temp 36.4 C L 11/19/21 06:47 Pulse 86 11/19/21 06:47 Resp 16 11/19/21 06:47 BP 109/79 11/19/21 06:47 Results & Data ([facility]) Laboratory Results Laboratory Results - last 24 hr 11/19/21 09:01 Fasting Glucose 102 H Triglycerides 141 Cholesterol 134 LDL Cholesterol, Calc 81 VLDL Cholesterol, Calc 28 HDL Cholesterol 25 Cholesterol/HDL Ratio 5.4 H Current Inpatient Medications Current Inpatient Medications: Current Inpatient Medications Acetaminophen (Acetaminophen 325 Mg Tab) 650 mg PO Q4H PRN PRN Reason: Headache or Minor Fever Stop: 12/17/21 12:25 Al Hydrox/Mg Hydrox/Simethicone (Aluminum/Magnesium Susp 30 Ml Udc) 30 ml PO Q4H PRN PRN Reason: GI Upset Stop: 12/17/21 12:25 Bismuth Subsalicylate (Bismuth Subsalicylate Liqd 236 Ml) 15 ml PO PRN PRN PRN Reason: Loose Stool Stop: 12/17/21 12:25 Clozapine (Clozapine 100 Mg Tab) 200 mg PO [facility] Stop: 12/17/21 21:59 Last Admin: 11/18/21 21:18 Dose: 200 mg Documented by: Clozapine (Clozapine 25 Mg Tab) 50 mg PO [facility] Stop: 12/18/21 08:59 Last Admin: 11/19/21 09:04 Dose: 50 mg Documented by: Docusate Sodium (Docusate Sodium 100 Mg Cap) 100 mg PO BID PRN PRN Reason: Constipation Stop: 12/17/21 20:59 Folic Acid (Folic Acid 1 Mg Tab) 1 mg PO [facility] Stop: 12/18/21 08:59 Last Admin: 11/19/21 09:04 Dose: 1 mg Documented by: Magnesium Hydroxide (Magnesium Hydroxide Susp 30 Ml Udc) 30 ml PO DAILY PRN PRN Reason: Constipation Stop: 12/17/21 12:25 Mirtazapine (Mirtazapine Tab 15 Mg Tab) 7.5 mg PO [facility] Stop: 12/17/21 21:59 Last Admin: 11/18/21 21:17 Dose: 7.5 mg Documented by: Multivitamins (Multivitamin Tab) 1 tab PO [facility] Stop: 12/18/21 08:59 Last Admin: 11/19/21 09:04 Dose: 1 tab Documented by: Simvastatin (Simvastatin 40 Mg Tab) 40 mg PO [facility] Stop: 12/17/21 21:59 Last Admin: 11/18/21 21:18 Dose: 40 mg Documented by: Sodium Chloride (Sodium Chloride 0.65% Na Soln 45 Ml ([place])) 1 - 2 sprays NA PRN PRN PRN Reason: Nasal Dryness/Congestion Stop: 12/17/21 12:25 Thiamine HCl (Thiamine Hcl 100 Mg Tab) [facility] Stop: 12/18/21 08:59 Last Admin: 11/19/21 09:04 Dose: 100 mg Documented by: Venlafaxine HCl (Venlafaxine Hcl Xr 150 Mg Capxr) 300 mg PO [facility] Stop: 12/18/21 08:59 Last Admin: 11/19/21 09:04 Dose: 300 mg Documented by: Mental Health & Subst Abuse Tx Photographic Process Worker Name of Photographic Process Worker: ACT Team in [facility] Post Discharge Appointments Primary Care Physician Name Of Family Doctor: [facility]
[2021-11-19] MEDS: cloZAPine 100 MG TAB PO SCH (21:13)
[2021-11-19] MEDS: MIRTAZAPINE TAB 15 MG TAB PO SCH (21:13)
[2021-11-19] MEDS: SIMVASTATIN 40 MG TAB PO SCH (21:13)
[2021-11-20] MEDS: VENLAFAXINE HCL XR 150 MG CAPXR PO SCH (09:26)
[2021-11-20] MEDS: FOLIC ACID 1 MG TAB PO SCH (09:26)
[2021-11-20] MEDS: MULTIVITAMIN TAB PO SCH (09:26)
[2021-11-20] MEDS: THIAMINE HCL 100 MG TAB PO SCH (09:27)
--- NOTE | 2021-11-20 11:14 | Psychiatric Progress Note ---
Date of Service November 20, 2021 Impression / Recommendations Impression 66 yo man with history of schizoaffective disorder presents for worsening depression with decreased po intake and self-care in the context of worsening command auditory hallucinations causing him to stop his psychiatric medications and recent complicated UTI. Diagnostically consistent with acute exacerbation of schizoaffective disorder and MDD, recurrent with likely contribution from possible delirium with recent UTI. 11/20/21: slight improvement in PO, ongoing am sedation (1) Schizoaffective disorder: (2) MDD (major depressive disorder), recurrent episode: 11/20/21: will keep clozaril at 200 mg his hs but earlier dose time. PO best for evening meal. communicate with ACT team 11/21 when office reopens. 11/19/21: hold am clozaril tomorrow and consider shift to 250 mg hs. input from daughter re: baseline and level of support that family can provide when returns home. 11/18/21: continue current meds and tx plan. 11/17/21: The patient was admitted to the [facility] ([facility] mental health unit) on q15 min checks (behavioral with suicide precautions) for safety. The patient will participate in group, recreational, and milieu therapies and will be offered additional individual and family sessions as clinically appropriate. -Reviewed ANC from 11/14/21, continue clozapine 50mg qAM & 200mg qhs -Fasting lipid panel, glucose qAM and clozapine level qhs before evening dose -Continue Effexor XR 300mg qd and mirtazapine 7.5 mg qhs (could consider increasing in coming days if appetite/po intake remains low) -Continue thiamine/folic acid/MVM given recent poor po intake -Continue simvastatin -bowel meds prn Inventory Assets Strengths: supportive family, willing to seek treatment, has housing, lots of outpatient services Needs: additional coping skills, increased po intake, medication adjustments/monitoring Suicide Risk Level Suicide Risk Level: Moderate (q15 min suicide checks) Risk Factors Assessment Male: Yes : Yes Do You Have Access To A Gun?: No Health Problems: Yes Mental Health Diagnoses: Yes Previous Attempt: No Previous Psychiatric Hospitalization: Yes Hopelessness: Yes Protective Factors Assessment Stable Relationships: Yes Supportive Family: Yes Good Rapport with Provider: Yes Interval History Identifying Information FERNIE GASPAR is a 66-year-old man who currently lives in [place] alone, has a history of schizoaffective disorder, and was admitted on 11/17/21 12:26 on a 201 voluntary commitment for worsening auditory hallucinations and depression with poor po intake on transfer from medical floor. Chief Complaint "I need to set an alarm" Review of Systems Sleep Information Total Hours of Sleep: 7.5 Sleep Comments: pt on q-15 minute checks Meal Information Percent Meal Consumed - Breakfast: 0 Percent Meal Consumed - Lunch: 25 Percent Meal Consumed - Dinner: 75 Subjective Subjective Patient was seen & assessed and interval progress reviewed with nursing. some restlessness last pm , attended groups and rated mood as 5. Slept in the am and typically doesn't eat breakfast at home. am clozaril held. Physical Exam Psychiatric Orientation: alert and oriented x 3 Apperance: appropriately dressed and + disheveled Eye Contact: + poor eye contact Motor Behavior: no abnormal motor movements and + psychomotor retardation Speech: normal rate/rhythm/volume of speech (brief, non-spontaneous) Affect: + flat affect Mood: no depressed mood Thought Process: + concrete thought process Thought Content: reality based without delusions Suicidal Thoughts: denies suicidal thoughts Homicidal Thoughts: denies homicidal thoughts Hallucinations: no auditory hallucinations and no visual hallucinations Cognition: recent memory grossly intact, remote memory grossly intact, attention grossly intact and language grossly intact Insight: + limited insight Judgement: + limited judgement Vital Signs (Past 24 Hours) Last Vital Signs Temp 36.4 C L 11/20/21 06:00 Pulse 78 11/20/21 06:00 Resp 18 11/20/21 06:00 BP 111/71 11/20/21 06:45 Pulse Ox 97 11/20/21 06:00 Results & Data ([facility]) Current Inpatient Medications Current Inpatient Medications: Current Inpatient Medications Acetaminophen (Acetaminophen 325 Mg Tab) 650 mg PO Q4H PRN PRN Reason: Headache or Minor Fever Stop: 12/17/21 12:25 Al Hydrox/Mg Hydrox/Simethicone (Aluminum/Magnesium Susp 30 Ml Udc) 30 ml PO Q4H PRN PRN Reason: GI Upset Stop: 12/17/21 12:25 Bismuth Subsalicylate (Bismuth Subsalicylate Liqd 236 Ml) 15 ml PO PRN PRN PRN Reason: Loose Stool Stop: 12/17/21 12:25 Clozapine (Clozapine 100 Mg Tab) 200 mg PO [facility] Stop: 12/17/21 21:59 Last Admin: 11/19/21 21:13 Dose: 200 mg Documented by: Clozapine (Clozapine 25 Mg Tab) 50 mg PO [facility] Stop: 12/18/21 08:59 Last Admin: 11/19/21 09:04 Dose: 50 mg Documented by: Docusate Sodium (Docusate Sodium 100 Mg Cap) 100 mg PO BID PRN PRN Reason: Constipation Stop: 12/17/21 20:59 Folic Acid (Folic Acid 1 Mg Tab) 1 mg PO [facility] Stop: 12/18/21 08:59 Last Admin: 11/20/21 09:26 Dose: 1 mg Documented by: Magnesium Hydroxide (Magnesium Hydroxide Susp 30 Ml Udc) 30 ml PO DAILY PRN PRN Reason: Constipation Stop: 12/17/21 12:25 Mirtazapine (Mirtazapine Tab 15 Mg Tab) 7.5 mg PO [facility] Stop: 12/17/21 21:59 Last Admin: 11/19/21 21:13 Dose: 7.5 mg Documented by: Multivitamins (Multivitamin Tab) 1 tab PO [facility] Stop: 12/18/21 08:59 Last Admin: 11/20/21 09:26 Dose: 1 tab Documented by: Simvastatin (Simvastatin 40 Mg Tab) 40 mg PO [facility] Stop: 12/17/21 21:59 Last Admin: 11/19/21 21:13 Dose: 40 mg Documented by: Sodium Chloride (Sodium Chloride 0.65% Na Soln 45 Ml ([place])) 1 - 2 sprays NA PRN PRN PRN Reason: Nasal Dryness/Congestion Stop: 12/17/21 12:25 Thiamine HCl (Thiamine Hcl 100 Mg Tab) 100 mg PO [facility] Stop: 12/18/21 08:59 Last Admin: 11/20/21 09:27 Dose: 100 mg Documented by: Venlafaxine HCl (Venlafaxine Hcl Xr 150 Mg Capxr) 300 mg PO [facility] Stop: 12/18/21 08:59 Last Admin: 11/20/21 09:26 Dose: 300 mg Documented by: Mental Health & Subst Abuse Tx Procurement Specialist Name of Procurement Specialist: ACT Team in [facility] Post Discharge Appointments Primary Care Physician Name Of Family Doctor: [facility]
[2021-11-20] MEDS ORDERED: LORazepam 1 MG TAB PO STA (18:37)
[2021-11-20] MEDS: cloZAPine 100 MG TAB PO SCH (19:49)
[2021-11-20] MEDS: SIMVASTATIN 40 MG TAB PO SCH (19:50)
[2021-11-20] MEDS ORDERED: MIRTAZAPINE TAB 15 MG TAB PO SCH (20:00)
[2021-11-21] MEDS: FOLIC ACID 1 MG TAB PO SCH (08:28)
[2021-11-21] MEDS: VENLAFAXINE HCL XR 150 MG CAPXR PO SCH (08:28)
[2021-11-21] MEDS: MULTIVITAMIN TAB PO SCH (08:28)
[2021-11-21] MEDS: THIAMINE HCL 100 MG TAB PO SCH (08:29)
--- NOTE | 2021-11-21 12:37 | Psychiatric Progress Note ---
Date of Service November 21, 2021 Impression / Recommendations Impression 66 yo man with history of schizoaffective disorder presents for worsening depression with decreased po intake and self-care in the context of worsening command auditory hallucinations causing him to stop his psychiatric medications and recent complicated UTI. Diagnostically consistent with acute exacerbation of schizoaffective disorder and MDD, recurrent with likely contribution from possible delirium with recent UTI. 11/21/21: improving (1) Schizoaffective disorder: (2) MDD (major depressive disorder), recurrent episode: 11/21/21: Remeron 15 mg hs for ease of dosing, add back 50 mg Clozaril but give evening meal as am was sedating. 11/20/21: will keep clozaril at 200 mg his hs but earlier dose time. PO best for evening meal. communicate with ACT team 11/21 when office reopens. 11/19/21: hold am clozaril tomorrow and consider shift to 250 mg hs. input from daughter re: baseline and level of support that family can provide when returns home. 11/18/21: continue current meds and tx plan. 11/17/21: The patient was admitted to the [facility] ([facility] mental health unit) on q15 min checks (behavioral with suicide precautions) for safety. The patient will participate in group, recreational, and milieu therapies and will be offered additional individual and family sessions as clinically appropriate. -Reviewed ANC from 11/14/21, continue clozapine 50mg qAM & 200mg qhs -Fasting lipid panel, glucose qAM and clozapine level qhs before evening dose -Continue Effexor XR 300mg qd and mirtazapine 7.5 mg qhs (could consider increasing in coming days if appetite/po intake remains low) -Continue thiamine/folic acid/MVM given recent poor po intake -Continue simvastatin -bowel meds prn Inventory Assets Strengths: supportive family, willing to seek treatment, has housing, lots of outpatient services Needs: additional coping skills, increased po intake, medication adjustments/monitoring Suicide Risk Level Suicide Risk Level: Moderate (q15 min suicide checks) Risk Factors Assessment Male: Yes : Yes Do You Have Access To A Gun?: No Health Problems: Yes Mental Health Diagnoses: Yes Previous Attempt: No Previous Psychiatric Hospitalization: Yes Hopelessness: Yes Protective Factors Assessment Stable Relationships: Yes Supportive Family: Yes Good Rapport with Provider: Yes Interval History Identifying Information FERNIE GASPAR is a 66-year-old man who currently lives in [place] alone, has a history of schizoaffective disorder, and was admitted on 11/17/21 12:26 on a 201 voluntary commitment for worsening auditory hallucinations and depression with poor po intake on transfer from medical floor. Chief Complaint "I do feel better than when I came to the hospital." Review of Systems Sleep Information Total Hours of Sleep: 6.25 Sleep Comments: pt on q-15 minute checks Meal Information Percent Meal Consumed - Breakfast: 0 Percent Meal Consumed - Lunch: 50 Percent Meal Consumed - Dinner: 80 Subjective Subjective Patient was seen & assessed and interval progress reviewed with treatment team. Up earlier this am. Did have period again yesterday afternoon where he appeared to be responding to internal stimuli again, he wouldn't elaborate, "it happens, I'm fine with it at home." Recognizes that he hadn't been enjoying life as much. Awaiting for input from ACT team. Eating with minimal encouragement. Physical Exam Psychiatric Orientation: alert Apperance: appropriately dressed Eye Contact: + poor eye contact Motor Behavior: no abnormal motor movements Speech: normal rate/rhythm/volume of speech (brief, non-spontaneous) Affect: + flat affect Mood: no depressed mood Thought Process: + concrete thought process Thought Content: reality based without delusions Suicidal Thoughts: denies suicidal thoughts Homicidal Thoughts: denies homicidal thoughts Hallucinations: no auditory hallucinations and no visual hallucinations Cognition: recent memory grossly intact, remote memory grossly intact, attention grossly intact and language grossly intact Insight: + limited insight Judgement: + limited judgement Vital Signs (Past 24 Hours) Last Vital Signs Temp 36.5 C 11/21/21 06:43 Pulse 82 11/21/21 06:43 Resp 14 11/21/21 06:43 BP 112/75 11/21/21 06:43 Pulse Ox 97 11/20/21 06:00 Results & Data ([facility]) Current Inpatient Medications Current Inpatient Medications: Current Inpatient Medications Acetaminophen (Acetaminophen 325 Mg Tab) 650 mg PO Q4H PRN PRN Reason: Headache or Minor Fever Stop: 12/17/21 12:25 Al Hydrox/Mg Hydrox/Simethicone (Aluminum/Magnesium Susp 30 Ml Udc) 30 ml PO Q4H PRN PRN Reason: GI Upset Stop: 12/17/21 12:25 Bismuth Subsalicylate (Bismuth Subsalicylate Liqd 236 Ml) 15 ml PO PRN PRN PRN Reason: Loose Stool Stop: 12/17/21 12:25 Clozapine (Clozapine 25 Mg Tab) 50 mg PO [facility] Stop: 12/18/21 08:59 Last Admin: 11/19/21 09:04 Dose: 50 mg Documented by: Clozapine (Clozapine 100 Mg Tab) 200 mg PO DAILY@1999 [facility] Stop: 12/20/21 19:59 Last Admin: 11/20/21 19:49 Dose: 200 mg Documented by: Docusate Sodium (Docusate Sodium 100 Mg Cap) 100 mg PO BID PRN PRN Reason: Constipation Stop: 12/17/21 20:59 Folic Acid (Folic Acid 1 Mg Tab) 1 mg PO [facility] Stop: 12/18/21 08:59 Last Admin: 11/21/21 08:28 Dose: 1 mg Documented by: Magnesium Hydroxide (Magnesium Hydroxide Susp 30 Ml Udc) 30 ml PO DAILY PRN PRN Reason: Constipation Stop: 12/17/21 12:25 Mirtazapine (Mirtazapine Tab 15 Mg Tab) 7.5 mg PO DAILY@1999 [facility] Stop: 12/20/21 19:59 Last Admin: 11/20/21 19:50 Dose: 7.5 mg Documented by: Multivitamins (Multivitamin Tab) 1 tab PO [facility] Stop: 12/18/21 08:59 Last Admin: 11/21/21 08:28 Dose: 1 tab Documented by: Simvastatin (Simvastatin 40 Mg Tab) 40 mg PO Q24H [facility] Stop: 12/20/21 19:59 Last Admin: 11/20/21 19:50 Dose: 40 mg Documented by: Sodium Chloride (Sodium Chloride 0.65% Na Soln 45 Ml ([place])) 1 - 2 sprays NA PRN PRN PRN Reason: Nasal Dryness/Congestion Stop: 12/17/21 12:25 Thiamine HCl (Thiamine Hcl 100 Mg Tab) 100 mg PO [facility] Stop: 12/18/21 08:59 Last Admin: 11/21/21 08:29 Dose: 100 mg Documented by: Venlafaxine HCl (Venlafaxine Hcl Xr 150 Mg Capxr) 300 mg PO [facility] Stop: 12/18/21 08:59 Last Admin: 11/21/21 08:28 Dose: 300 mg Documented by: Mental Health & Subst Abuse Tx Rod Mill Operator Name of Rod Mill Operator: ACT Team in [facility] Post Discharge Appointments Primary Care Physician Name Of Family Doctor: [facility]
[2021-11-21] MEDS ORDERED: LORazepam 0.5 MG TAB PO PRN (12:41)
[2021-11-21] MEDS: cloZAPine 25 MG TAB PO SCH (17:14)
[2021-11-21] MEDS: cloZAPine 100 MG TAB PO SCH (20:31)
[2021-11-21] MEDS: SIMVASTATIN 40 MG TAB PO SCH (20:31)
[2021-11-21] MEDS: MIRTAZAPINE TAB 15 MG TAB PO SCH (20:31)
[2021-11-22] MEDS: VENLAFAXINE HCL XR 150 MG CAPXR PO SCH (09:08)
[2021-11-22] MEDS: THIAMINE HCL 100 MG TAB PO SCH (09:09)
[2021-11-22] MEDS: FOLIC ACID 1 MG TAB PO SCH (09:09)
[2021-11-22] MEDS: MULTIVITAMIN TAB PO SCH (09:09)
[2021-11-22 10:34] LABS: Basophils # (auto) 0.05 K/uL (0-0.2); Eosinophils # (auto) 0.31 K/uL (0-0.50); Eosinophils % (auto) 6.2 %; Hemoglobin 15.6 g/dl (14.0-18.0); Immature Granulocytes # (auto) 0.02 K/uL (0.00-0.02); Immature Granulocytes % (auto) 0.4 %; Lymphocytes # (auto) 1.23 K/uL (1.2-3.4); Lymphocytes % (auto) 24.5 %; Mean Corpuscular Hemoglobin 30.1 pg (25.0-34.0); Mean Corpuscular Hgb Conc 33.2 g/dL (32.0-36.0); Mean Corpuscular Volume 90.6 fL (80.0-100.0); Mean Platelet Volume 10.6 fL (9.4-12.4); Monocytes # (auto) 0.42 K/uL (0.24-0.82); Monocytes % (auto) 8.3 %; Neutrophils % (auto) 59.6 %; Platelet Count 288 K/uL (130-400); RDW Coefficient of Variation 12.8 % (11.5-14.5); RDW Standard Deviation 42.5 fL (36.4-46.3); Red Blood Count 5.19 M/uL (4.63-6.08); White Blood Count 5.03 K/ul (4.8-10.8)
--- NOTE | 2021-11-22 11:39 | Psychiatric Progress Note ---
Date of Service November 22, 2021 Impression / Recommendations Impression 66 yo man with history of schizoaffective disorder presents for worsening depression with decreased po intake and self-care in the context of worsening command auditory hallucinations causing him to stop his psychiatric medications and recent complicated UTI. Diagnostically consistent with acute exacerbation of schizoaffective disorder and MDD, recurrent with likely contribution from possible delirium with recent UTI. 11/22/21: aftercare planning Plan: d/c meeting today at 1400 hrs. (1) Schizoaffective disorder: (2) MDD (major depressive disorder), recurrent episode: 11/21/21: Remeron 15 mg hs for ease of dosing, add back 50 mg Clozaril but give evening meal as am was sedating. 11/20/21: will keep clozaril at 200 mg his hs but earlier dose time. PO best for evening meal. communicate with ACT team 11/21 when office reopens. 11/19/21: hold am clozaril tomorrow and consider shift to 250 mg hs. input from daughter re: baseline and level of support that family can provide when returns home. 11/18/21: continue current meds and tx plan. 11/17/21: The patient was admitted to the [facility] ([facility] mental health unit) on q15 min checks (behavioral with suicide precautions) for safety. The patient will participate in group, recreational, and milieu therapies and will be offered additional individual and family sessions as clinically appropriate. -Reviewed ANC from 11/14/21, continue clozapine 50mg qAM & 200mg qhs -Fasting lipid panel, glucose qAM and clozapine level qhs before evening dose -Continue Effexor XR 300mg qd and mirtazapine 7.5 mg qhs (could consider increasing in coming days if appetite/po intake remains low) -Continue thiamine/folic acid/MVM given recent poor po intake -Continue simvastatin -bowel meds prn Inventory Assets Strengths: supportive family, willing to seek treatment, has housing, lots of outpatient services Needs: additional coping skills, increased po intake, medication adjustments/monitoring Suicide Risk Level Suicide Risk Level: Moderate (q15 min suicide checks) Suicide Risk Level Comments: Denying SI but with major depression and poor po intake and periods of command AH (but never telling him to or attempt SI). Able to safety contract, feels safe on the unit, agrees to go to staff if AH worsen or intensify or if he feels unsafe or has thoughts of SI or cAH telling him to hurt himself. Risk Factors Assessment Male: Yes : Yes Do You Have Access To A Gun?: No Health Problems: Yes Mental Health Diagnoses: Yes Previous Attempt: No Previous Psychiatric Hospitalization: Yes Hopelessness: Yes Protective Factors Assessment Stable Relationships: Yes Supportive Family: Yes Good Rapport with Provider: Yes Interval History Identifying Information FERNIE GASPAR is a 66-year-old man who currently lives in [place] alone, has a history of schizoaffective disorder, and was admitted on 11/17/21 12:26 on a 201 voluntary commitment for worsening auditory hallucinations and depression with poor po intake on transfer from medical floor. Chief Complaint team meeting today Review of Systems Sleep Information Total Hours of Sleep: 7 Sleep Comments: pt on q-15 minute checks Meal Information Percent Meal Consumed - Breakfast: 0 Percent Meal Consumed - Lunch: 50 Percent Meal Consumed - Dinner: 50 Subjective Subjective Patient was seen & assessed and interval progress reviewed with treatment team. Apparently family now concerned about state of apartment and level of ETOH use, both of which the patient has minimized. His recent contact with the ACT team is unclear and there will be a meeting this afternoon to determine how soon services can restart and how best to clean up apartment. Physical Exam Psychiatric Orientation: alert and oriented x 3 Apperance: appropriately dressed and + disheveled Eye Contact: + poor eye contact Motor Behavior: no abnormal motor movements Speech: normal rate/rhythm/volume of speech (brief, non-spontaneous) Affect: + flat affect Mood: no depressed mood Thought Process: + concrete thought process Thought Content: reality based without delusions Suicidal Thoughts: denies suicidal thoughts Homicidal Thoughts: denies homicidal thoughts Hallucinations: no auditory hallucinations and no visual hallucinations Cognition: recent memory grossly intact, remote memory grossly intact, attention grossly intact and language grossly intact Insight: + limited insight Judgement: + limited judgement Vital Signs (Past 24 Hours) Last Vital Signs Temp 36.5 C 11/22/21 06:00 Pulse 86 11/22/21 06:23 Resp 16 11/22/21 06:00 BP 129/79 11/22/21 06:23 Pulse Ox 97 11/20/21 06:00 Results & Data ([facility]) Laboratory Results Laboratory Results - last 24 hr 11/21/21 11/22/21 13:00 09:38 WBC Cancelled 5.03 RBC Cancelled 5.19 Hgb Cancelled 15.6 Hct Cancelled 47.0 MCV Cancelled 90.6 MCH Cancelled 30.1 MCHC Cancelled 33.2 RDW Std Deviation Cancelled 42.5 RDW Coeff of Mai Cancelled 12.8 Plt Count Cancelled 288 MPV Cancelled 10.6 Immature Gran % (Auto) Cancelled 0.4 Neut % (Auto) Cancelled 59.6 Lymph % (Auto) Cancelled 24.5 [place] % (Auto) Cancelled 8.3 Eos % (Auto) Cancelled 6.2 Baso % (Auto) Cancelled 1.0 Neut # (Auto) Cancelled 3.00 Lymph # (Auto) Cancelled 1.23 [place] # (Auto) Cancelled 0.42 Eos # (Auto) Cancelled 0.31 Baso # (Auto) Cancelled 0.05 Immature Gran # (Auto) Cancelled 0.02 Absolute Nucleated RBC Cancelled Nucleated RBC % (auto) Cancelled Neutrophils % (Manual) Cancelled Band Neutrophils % Cancelled Lymphocytes % (Manual) Cancelled Prolymphocyte % Cancelled Reactive Lymphs % (Man) Cancelled Monocytes % (Manual) Cancelled Eosinophils % (Manual) Cancelled Basophils % (Manual) Cancelled Metamyelocytes % (Man) Cancelled Myelocytes % (Man) Cancelled Promyelocytes % (Man) Cancelled Blast Cells % (Manual) Cancelled Plasma Cell % (Manual) Cancelled Other Cells % Cancelled Nucleated RBC % Cancelled Neutrophils # (Manual) Cancelled Band Neutrophils # Cancelled Total Absolute Neuts Cancelled Lymphocytes # (Manual) Cancelled Prolymphocyte # Cancelled Reactive Lymphs # Cancelled Total Abs Lymphocytes Cancelled Monocytes # (Manual) Cancelled Eosinophils # (Manual) Cancelled Basophils # (Manual) Cancelled Metamyelocytes # (Man) Cancelled Myelocytes # (Manual) Cancelled Promyelocytes # (Man) Cancelled Blast Cells # (Man) Cancelled Plasma Cell # (Manual) Cancelled Other Cells # Cancelled Nucleated RBCs # (Man) Cancelled Hypersegmented Neuts Cancelled Hyposegmented Neuts Cancelled Hypogranular Neuts Cancelled Large Granular Lymphs Cancelled # Lrg Granular Lymphs Cancelled Hairy Cells Cancelled Smudge Cells Cancelled Toxic Granulation Cancelled Toxic Vacuolation Cancelled Dohle Bodies Cancelled [place] Cancelled Platelet Estimate Cancelled Hypogranular Platelets Cancelled Clumped Platelets Cancelled Giant Platelets Cancelled Platelet Satelliting Cancelled RBC Morphology Cancelled Polychromasia Cancelled Hypochromasia Cancelled Poikilocytosis Cancelled Basophilic Stippling Cancelled Anisocytosis Cancelled Microcytosis Cancelled Macrocytosis Cancelled Spherocytes Cancelled Pappenheimer Bodies Cancelled Sickle Cells Cancelled Target Cells Cancelled Tear Drop Cells Cancelled Ovalocytes Cancelled Stomatocytes Cancelled [place] Bodies Cancelled Echinocytes Cancelled Acanthocytes (Spur) Cancelled Rouleaux Cancelled RBC Agglutinates Cancelled Schistocytes Cancelled [place] Cell Cancelled Current Inpatient Medications Current Inpatient Medications: Current Inpatient Medications Acetaminophen (Acetaminophen 325 Mg Tab) 650 mg PO Q4H PRN PRN Reason: Headache or Minor Fever Stop: 12/17/21 12:25 Al Hydrox/Mg Hydrox/Simethicone (Aluminum/Magnesium Susp 30 Ml Udc) 30 ml PO Q4H PRN PRN Reason: GI Upset Stop: 12/17/21 12:25 Bismuth Subsalicylate (Bismuth Subsalicylate Liqd 236 Ml) 15 ml PO PRN PRN PRN Reason: Loose Stool Stop: 12/17/21 12:25 Clozapine (Clozapine 100 Mg Tab) 200 mg PO DAILY@1999 [facility] Stop: 12/20/21 19:59 Last Admin: 11/21/21 20:31 Dose: 200 mg Documented by: Clozapine (Clozapine 25 Mg Tab) 50 mg PO DAILYBD [facility] Stop: 12/21/21 17:14 Last Admin: 11/21/21 17:14 Dose: 50 mg Documented by: Docusate Sodium (Docusate Sodium 100 Mg Cap) 100 mg PO BID PRN PRN Reason: Constipation Stop: 12/17/21 20:59 Folic Acid (Folic Acid 1 Mg Tab) 1 mg PO QAM [facility] Stop: 12/18/21 08:59 Last Admin: 11/22/21 09:09 Dose: 1 mg Documented by: Lorazepam (Lorazepam 0.5 Mg Tab) 0.5 mg PO Q4 PRN PRN Reason: Anxiety Stop: 12/21/21 12:40 Magnesium Hydroxide (Magnesium Hydroxide Susp 30 Ml Udc) 30 ml PO DAILY PRN PRN Reason: Constipation Stop: 12/17/21 12:25 Mirtazapine (Mirtazapine Tab 15 Mg Tab) 15 mg PO DAILY@1999 [facility] Stop: 12/21/21 19:59 Last Admin: 11/21/21 20:31 Dose: 15 mg Documented by: Multivitamins ([facility]itamin Tab) [facility]: 12/18/21 08:59 Last Admin: 11/22/21 09:09 Dose: 1 tab Documented by: Simvastatin (Simvastatin 40 Mg Tab) 40 mg PO Q24H [facility] Stop: 12/20/21 19:59 Last Admin: 11/21/21 20:31 Dose: 40 mg Documented by: Sodium Chloride (Sodium Chloride 0.65% Na Soln 45 Ml ([place])) 1 - 2 sprays NA PRN PRN PRN Reason: Nasal Dryness/Congestion Stop: 12/17/21 12:25 Thiamine HCl (Thiamine Hcl 100 Mg Tab) [facility] Stop: 12/18/21 08:59 Last Admin: 11/22/21 09:09 Dose: 100 mg Documented by: Venlafaxine HCl (Venlafaxine Hcl Xr 150 Mg Capxr) 300 [facility] Stop: 12/18/21 08:59 Last Admin: 11/22/21 09:08 Dose: 300 mg Documented by: Mental Health & Subst Abuse Tx Psychiatrist Name of Psychiatrist: [facility] Psychiatrist's Psychiatric Appointment Comment: [address] [place] [id number] Therapist Name of Therapist: [facility] Therapist's Therapy Appointment Comment: [address] [place] [address] Travelers' Aid Worker Name of Travelers' Aid Worker: ACT Team in [facility] Phone Number for Travelers' Aid Worker: [phone] Case Management Appointment Comment: [address] [place] [address] Post Discharge Appointments Primary Care Physician Name Of Family Doctor: [facility] Primary Care Provider Appointment Comment: [address] [place] [address]
[2021-11-22] MEDS: PALIPERIDONE 3 MG TABCR PO SCH (15:33)
[2021-11-22] MEDS: cloZAPine 25 MG TAB PO SCH (17:13)
[2021-11-22] MEDS: cloZAPine 100 MG TAB PO SCH (19:48)
[2021-11-22] MEDS: MIRTAZAPINE TAB 15 MG TAB PO SCH (19:49)
[2021-11-22] MEDS: SIMVASTATIN 40 MG TAB PO SCH (19:49)
[2021-11-23 01:07] LABS: Clozapine 440 mcg/L; Norclozapine 350 mcg/L (25-400)
[2021-11-23] MEDS: PALIPERIDONE 3 MG TABCR PO SCH (09:04)
[2021-11-23] MEDS: VENLAFAXINE HCL XR 150 MG CAPXR PO SCH (09:05)
[2021-11-23] MEDS: THIAMINE HCL 100 MG TAB PO SCH (09:05)
[2021-11-23] MEDS: MULTIVITAMIN TAB PO SCH (09:05)
[2021-11-23] MEDS: FOLIC ACID 1 MG TAB PO SCH (09:05)
[2021-11-23] MEDS ORDERED: BENZTROPINE MESYLATE 1 MG TAB PO PRN (13:40)
--- NOTE | 2021-11-23 14:05 | Psychiatric Progress Note ---
Date of Service November 23, 2021 Impression / Recommendations Impression 66 yo man with history of schizoaffective disorder presents for worsening depression with decreased po intake and self-care in the context of worsening command auditory hallucinations causing him to stop his psychiatric medications and recent complicated UTI. Diagnostically consistent with acute exacerbation of schizoaffective disorder and MDD, recurrent with likely contribution from possible delirium with recent UTI. 11/23/21: tolerating Invega (1) Schizoaffective disorder: (2) MDD (major depressive disorder), recurrent episode: 11/23/21: patient is tolerating PO Invega in anticipation of FIERRO as adjunct to clozaril given compliance hx when living independently. Increase to Invega 6 mg in am. Finger foods diet as prefers sandwiches, etc. 11/22/21: agreed to Invega trial after meeting with ACT team and daughters. 11/21/21: Remeron 15 mg hs for ease of dosing, add back 50 mg Clozaril but give evening meal as am was sedating. 11/20/21: will keep clozaril at 200 mg his hs but earlier dose time. PO best for evening meal. communicate with ACT team 11/21 when office reopens. 11/19/21: hold am clozaril tomorrow and consider shift to 250 mg hs. input from daughter re: baseline and level of support that family can provide when returns home. 11/18/21: continue current meds and tx plan. 11/17/21: The patient was admitted to the [facility] ([facility] mental health unit) on q15 min checks (behavioral with suicide precautions) for safety. The patient will participate in group, recreational, and milieu therapies and will be offered additional individual and family sessions as clinically appropriate. -Reviewed ANC from 11/14/21, continue clozapine 50mg qAM & 200mg qhs -Fasting lipid panel, glucose qAM and clozapine level qhs before evening dose -Continue Effexor XR 300mg qd and mirtazapine 7.5 mg qhs (could consider increasing in coming days if appetite/po intake remains low) -Continue thiamine/folic acid/MVM given recent poor po intake -Continue simvastatin -bowel meds prn Inventory Assets Strengths: supportive family, willing to seek treatment, has housing, lots of outpatient services Needs: additional coping skills, increased po intake, medication adjustments/monitoring Suicide Risk Level Suicide Risk Level: Moderate (q15 min suicide checks) Suicide Risk Level Comments: Denying SI but with major depression and poor po intake and periods of command AH (but never telling him to or attempt SI). Able to safety contract, feels safe on the unit, agrees to go to staff if AH worsen or intensify or if he feels unsafe or has thoughts of SI or cAH telling him to hurt himself. Risk Factors Assessment Male: Yes : Yes Do You Have Access To A Gun?: No Health Problems: Yes Mental Health Diagnoses: Yes Previous Attempt: No Previous Psychiatric Hospitalization: Yes Hopelessness: Yes Protective Factors Assessment Stable Relationships: Yes Supportive Family: Yes Good Rapport with Provider: Yes Interval History Identifying Information FERNIE GASPAR is a 66-year-old man who currently lives in [place] alone, has a history of schizoaffective disorder, and was admitted on 11/17/21 12:26 on a 201 voluntary commitment for worsening auditory hallucinations and depression with poor po intake on transfer from medical floor. Chief Complaint "no thank you"--when prompted around food Review of Systems Sleep Information Total Hours of Sleep: 8.25 Sleep Comments: pt on q-15 minute checks Meal Information Percent Meal Consumed - Breakfast: 0 Percent Meal Consumed - Lunch: 100 Percent Meal Consumed - Dinner: 5 Subjective Subjective Patient was seen & assessed and interval progress reviewed with nursing and social work. overwhelmed following family meeting/aCT team given expectations on discharge and doesn't want to "have to" go to an assisted living/personal alf. He is looking forward to seeing his family after discharge otherwise little motivation to change. Hasn't been seen as responding to stimuli quite as frequently in the milieu. Tolerated first dose of Invega. Physical Exam Psychiatric Orientation: alert and oriented x 3 Apperance: appropriately dressed and + disheveled Eye Contact: + poor eye contact Motor Behavior: no abnormal motor movements and + psychomotor retardation Speech: normal rate/rhythm/volume of speech (brief, non-spontaneous) Thought Process: + concrete thought process Thought Content: reality based without delusions Suicidal Thoughts: denies suicidal thoughts Homicidal Thoughts: denies homicidal thoughts Hallucinations: no auditory hallucinations and no visual hallucinations Cognition: recent memory grossly intact, remote memory grossly intact, attention grossly intact and language grossly intact Insight: + limited insight Judgement: + limited judgement Vital Signs (Past 24 Hours) Last Vital Signs Temp 36.4 C 11/23/21 06:00 Pulse 91 H 11/23/21 06:00 Resp 18 11/23/21 06:00 BP 128/74 11/23/21 06:39 Pulse Ox 97 11/20/21 06:00 Results & Data ([facility]) Laboratory Results Laboratory Results - last 24 hr 11/17/21 20:04 Clozapine 440 Norclozapine 350 Current Inpatient Medications Current Inpatient Medications: Current Inpatient Medications Acetaminophen (Acetaminophen 325 Mg Tab) 650 mg PO Q4H PRN PRN Reason: Headache or Minor Fever Stop: 12/17/21 12:25 Al Hydrox/Mg Hydrox/Simethicone (Aluminum/Magnesium Susp 30 Ml Udc) 30 ml PO Q4H PRN PRN Reason: GI Upset Stop: 12/17/21 12:25 Benztropine Mesylate (Benztropine Mesylate 1 Mg Tab) 1 mg PO Q6 PRN PRN Reason: dystonia Stop: 12/23/21 13:39 Bismuth Subsalicylate (Bismuth Subsalicylate Liqd 236 Ml) 15 ml PO PRN PRN PRN Reason: Loose Stool Stop: 12/17/21 12:25 Clozapine (Clozapine 100 Mg Tab) 200 mg PO DAILY@1999 [facility] Stop: 12/20/21 19:59 Last Admin: 11/22/21 19:48 Dose: 200 mg Documented by: Clozapine (Clozapine 25 Mg Tab) 50 mg PO DAILYBD MARSHA Stop: 12/21/21 17:14 Last Admin: 11/22/21 17:13 Dose: 50 mg Documented by: Docusate Sodium (Docusate Sodium 100 Mg Cap) 100 mg PO BID PRN PRN Reason: Constipation Stop: 12/17/21 20:59 Folic Acid (Folic Acid 1 Mg Tab) 1 mg PO QAM MARSHA Stop: 12/18/21 08:59 Last Admin: 11/23/21 09:05 Dose: 1 mg Documented by: Lorazepam (Lorazepam 0.5 Mg Tab) 0.5 mg PO Q4 PRN PRN Reason: Anxiety Stop: 12/21/21 12:40 Magnesium Hydroxide (Magnesium Hydroxide Susp 30 Ml Udc) 30 ml PO DAILY PRN PRN Reason: Constipation Stop: 12/17/21 12:25 Mirtazapine (Mirtazapine Tab 15 Mg Tab) 15 mg PO DAILY@1999 [facility] Stop: 12/21/21 19:59 Last Admin: 11/22/21 19:49 Dose: 15 mg Documented by: Multivitamins ([facility]ivitamin Tab) [facility] [place]: 12/18/21 08:59 Last Admin: 11/23/21 09:05 Dose: 1 tab Documented by: Paliperidone (Paliperidone 3 Mg Tabcr) 6 [facility] [place]: 12/24/21 08:59 Simvastatin (Simvastatin 40 Mg Tab) 40 mg PO Q24H [facility] Stop: 12/20/21 19:59 Last Admin: 11/22/21 19:49 Dose: 40 mg Documented by: Sodium Chloride (Sodium Chloride 0.65% Na Soln 45 Ml ([place])) 1 - 2 sprays NA PRN PRN PRN Reason: Nasal Dryness/Congestion Stop: 12/17/21 12:25 Thiamine HCl (Thiamine Hcl 100 Mg Tab) [facility] Stop: 12/18/21 08:59 Last Admin: 11/23/21 09:05 Dose: 100 mg Documented by: Venlafaxine HCl (Venlafaxine Hcl Xr 150 Mg Capxr) 300 mg PO [facility] Stop: 12/18/21 08:59 Last Admin: 11/23/21 09:05 Dose: 300 mg Documented by: Mental Health & Subst Abuse Tx Psychiatrist Name of Psychiatrist: [facility] Psychiatrist's Psychiatric Appointment Comment: [address] [place] [address] Therapist Name of Therapist: [facility] Therapist's Therapy Appointment Comment: [address] [place] [address] Territory Representative Name of Territory Representative: ACT Team in [facility] Phone Number for Territory Representative: [phone] Case Management Appointment Comment: [address] [place] [address] Post Discharge Appointments Primary Care Physician Name Of Family Doctor: [facility] Primary Care Provider Appointment Comment: [address] [place] [address]
[2021-11-23] MEDS: cloZAPine 25 MG TAB PO SCH (17:46)
[2021-11-23] MEDS: SIMVASTATIN 40 MG TAB PO SCH (20:55)
[2021-11-23] MEDS: MIRTAZAPINE TAB 15 MG TAB PO SCH (20:55)
[2021-11-23] MEDS: cloZAPine 100 MG TAB PO SCH (20:55)
[2021-11-24] MEDS: MULTIVITAMIN TAB PO SCH (09:02)
[2021-11-24] MEDS: FOLIC ACID 1 MG TAB PO SCH (09:02)
[2021-11-24] MEDS: PALIPERIDONE 3 MG TABCR PO SCH (09:03)
[2021-11-24] MEDS: THIAMINE HCL 100 MG TAB PO SCH (09:03)
[2021-11-24] MEDS: VENLAFAXINE HCL XR 150 MG CAPXR PO SCH (09:04)
--- NOTE | 2021-11-24 13:42 | Psychiatric Progress Note ---
Date of Service November 24, 2021 Impression / Recommendations Impression 66 yo man with history of schizoaffective disorder presents for worsening depression with decreased po intake and self-care in the context of worsening command auditory hallucinations causing him to stop his psychiatric medications and recent complicated UTI. Diagnostically consistent with acute exacerbation of schizoaffective disorder and MDD, recurrent with likely contribution from possible delirium with recent UTI. 11/24/21: improving (1) Schizoaffective disorder: (2) MDD (major depressive disorder), recurrent episode: 11/24/21: 1 more day of Invega 6 mg with plan for loading injection 234 mg on 11/26/21. Oral will continue until after 2nd loading dose 156 mg per ACT team as outpatient 11/30 or 12/01/21. 11/23/21: patient is tolerating PO Invega in anticipation of FIERRO as adjunct to clozaril given compliance hx when living independently. Increase to Invega 6 mg in am. Finger foods diet as prefers sandwiches, etc. 11/22/21: agreed to Invega trial after meeting with ACT team and daughters. 11/21/21: Remeron 15 mg hs for ease of dosing, add back 50 mg Clozaril but give evening meal as am was sedating. 11/20/21: will keep clozaril at 200 mg his hs but earlier dose time. PO best for evening meal. communicate with ACT team 11/21 when office reopens. 11/19/21: hold am clozaril tomorrow and consider shift to 250 mg hs. input from daughter re: baseline and level of support that family can provide when returns home. 11/18/21: continue current meds and tx plan. 11/17/21: The patient was admitted to the [facility] ([facility] mental [facility]) on q15 min checks (behavioral with suicide precautions) for safety. The patient will participate in group, recreational, and milieu therapies and will be offered additional individual and family sessions as clinically appropriate. -Reviewed ANC from 11/14/21, continue clozapine 50mg qAM & 200mg qhs -Fasting lipid panel, glucose qAM and clozapine level qhs before evening dose -Continue Effexor XR 300mg qd and mirtazapine 7.5 mg qhs (could consider increasing in coming days if appetite/po intake remains low) -Continue thiamine/folic acid/MVM given recent poor po intake -Continue simvastatin -bowel meds prn Inventory Assets Strengths: supportive family, willing to seek treatment, has housing, lots of outpatient services Needs: additional coping skills, increased po intake, medication adjustments/monitoring Suicide Risk Level Suicide Risk Level: Moderate (q15 min suicide checks) Suicide Risk Level Comments: Denying SI but with major depression and poor po intake and periods of command AH (but never telling him to or attempt SI). Able to safety contract, feels safe on the unit, agrees to go to staff if AH worsen or intensify or if he feels unsafe or has thoughts of SI or cAH telling him to hurt himself. Risk Factors Assessment Male: Yes : Yes Do You Have Access To A Gun?: No Health Problems: Yes Mental Health Diagnoses: Yes Previous Attempt: No Previous Psychiatric Hospitalization: Yes Hopelessness: Yes Protective Factors Assessment Stable Relationships: Yes Supportive Family: Yes Good Rapport with Provider: Yes Interval History Identifying Information FERNIE GASPAR is a 66-year-old man who currently lives in [place] alone, has a history of schizoaffective disorder, and was admitted on 11/17/21 12:26 on a 201 voluntary commitment for worsening auditory hallucinations and depression with poor po intake on transfer from medical floor. Chief Complaint "It helps to have people around". Review of Systems Sleep Information Total Hours of Sleep: 8.5 Sleep Comments: pt on q-15 minute checks Meal Information Percent Meal Consumed - Breakfast: 0 Percent Meal Consumed - Lunch: 75 Percent Meal Consumed - Dinner: 75 Subjective Subjective Patient was seen & assessed and interval progress reviewed with treatment team. He does not appear to be responding to stimuli as often, low energy at times but overall cooperative with routines. Denies any side effects of Invega. Physical Exam Psychiatric Orientation: alert Apperance: appropriately dressed Motor Behavior: no abnormal motor movements Speech: normal rate/rhythm/volume of speech (brief, non-spontaneous) Affect: + flat affect Mood: no depressed mood Thought Process: + concrete thought process Thought Content: reality based without delusions Suicidal Thoughts: denies suicidal thoughts Homicidal Thoughts: denies homicidal thoughts Hallucinations: no auditory hallucinations and no visual hallucinations Cognition: remote memory grossly intact Insight: + limited insight Judgement: + limited judgement Vital Signs (Past 24 Hours) Last Vital Signs Temp 36.3 C L 11/24/21 06:00 Pulse 85 07/08/22 06:43 Resp 18 11/24/21 06:00 BP 113/70 11/24/21 06:43 Pulse Ox 97 11/20/21 06:00 Results & Data ([facility]) Current Inpatient Medications Current Inpatient Medications: Current Inpatient Medications Acetaminophen (Acetaminophen 325 Mg Tab) 650 mg PO Q4H PRN PRN Reason: Headache or Minor Fever Stop: 12/17/21 12:25 Al Hydrox/Mg Hydrox/Simethicone (Aluminum/Magnesium Susp 30 Ml Udc) 30 ml PO Q4H PRN PRN Reason: GI Upset Stop: 12/17/21 12:25 Benztropine Mesylate (Benztropine Mesylate 1 Mg Tab) 1 mg PO Q6 PRN PRN Reason: dystonia Stop: 12/23/21 13:39 Bismuth Subsalicylate (Bismuth Subsalicylate Liqd 236 Ml) 15 ml PO PRN PRN PRN Reason: Loose Stool Stop: 12/17/21 12:25 Clozapine (Clozapine 100 Mg Tab) 200 mg PO DAILY@1999 [facility] Stop: 12/20/21 19:59 Last Admin: 11/23/21 20:55 Dose: 200 mg Documented by: Clozapine (Clozapine 25 Mg Tab) 50 mg PO DAILYBD [facility] Stop: 12/21/21 17:14 Last Admin: 11/23/21 17:46 Dose: 50 mg Documented by: Docusate Sodium (Docusate Sodium 100 Mg Cap) 100 mg PO BID PRN PRN Reason: Constipation Stop: 12/17/21 20:59 Folic Acid (Folic Acid 1 Mg Tab) [facility] [place] Stop: 12/18/21 08:59 Last Admin: 11/24/21 09:02 Dose: 1 mg Documented by: Lorazepam (Lorazepam 0.5 Mg Tab) 0.5 mg PO Q4 PRN PRN Reason: Anxiety Stop: 12/21/21 12:40 Magnesium Hydroxide (Magnesium Hydroxide Susp 30 Ml Udc) 30 ml PO DAILY PRN PRN Reason: Constipation Stop: 12/17/21 12:25 Mirtazapine (Mirtazapine Tab 15 Mg Tab) 15 mg PO DAILY@1999 [facility] Stop: 12/21/21 19:59 Last Admin: 11/23/21 20:55 Dose: 15 mg Documented by: Multivitamins (Multivitamin Tab) [facility] [place] Stop: 12/18/21 08:59 Last Admin: 11/24/21 09:02 Dose: 1 tab Documented by: Paliperidone (Paliperidone 3 Mg Tabcr) 6 [facility] [place] Stop: 12/24/21 08:59 Last Admin: 11/24/21 09:03 Dose: 6 mg Documented by: Simvastatin (Simvastatin 40 Mg Tab) 40 mg PO Q24H [facility] Stop: 12/20/21 19:59 Last Admin: 11/23/21 20:55 Dose: 40 mg Documented by: Sodium Chloride (Sodium Chloride 0.65% Na Soln 45 Ml ([place])) 1 - 2 sprays NA PRN PRN PRN Reason: Nasal Dryness/Congestion Stop: 12/17/21 12:25 Thiamine HCl (Thiamine Hcl 100 Mg Tab) [facility] [place] Stop: 12/18/21 08:59 Last Admin: 11/24/21 09:03 Dose: 100 mg Documented by: Venlafaxine HCl (Venlafaxine Hcl Xr 150 Mg Capxr) 300 mg PO [facility] Stop: 12/18/21 08:59 Last Admin: 11/24/21 09:04 Dose: 300 mg Documented by: Mental Health & Subst Abuse Tx Psychiatrist Name of Psychiatrist: [facility] Psychiatrist's Psychiatric Appointment Comment: [address] [place] [address] Therapist Name of Therapist: [facility] Therapist's Therapy Appointment Comment: [address] [place] [address] Paperhanger Supervisor Name of Paperhanger Supervisor: ACT Team in [facility] Phone Number for Paperhanger Supervisor: [phone] Case Management Appointment Comment: [address] [place] [address] Post Discharge Appointments Primary Care Physician Name Of Family Doctor: [facility] Primary Care Provider Appointment Comment: [address] [place] [address]
[2021-11-24] MEDS: cloZAPine 25 MG TAB PO SCH (17:01)
[2021-11-24] MEDS: MIRTAZAPINE TAB 15 MG TAB PO SCH (20:10)
[2021-11-24] MEDS: cloZAPine 100 MG TAB PO SCH (20:10)
[2021-11-24] MEDS: SIMVASTATIN 40 MG TAB PO SCH (20:10)
[2021-11-25] MEDS: FOLIC ACID 1 MG TAB PO SCH (08:49)
[2021-11-25] MEDS: MULTIVITAMIN TAB PO SCH (08:49)
[2021-11-25] MEDS: PALIPERIDONE 3 MG TABCR PO SCH (08:50)
[2021-11-25] MEDS: THIAMINE HCL 100 MG TAB PO SCH (08:51)
[2021-11-25] MEDS: VENLAFAXINE HCL XR 150 MG CAPXR PO SCH (08:52)
--- NOTE | 2021-11-25 11:54 | Psychiatric Progress Note ---
Date of Service November 25, 2021 Impression / Recommendations Impression 66 yo man with history of schizoaffective disorder presents for worsening depression with decreased po intake and self-care in the context of worsening command auditory hallucinations causing him to stop his psychiatric medications and recent complicated UTI. Diagnostically consistent with acute exacerbation of schizoaffective disorder and MDD, recurrent with likely contribution from possible delirium with recent UTI. 11/25/21: improving (1) Schizoaffective disorder: (2) MDD (major depressive disorder), recurrent episode: 11/25/21: updated clozaril REMS ([id number]) in anticipation of discharge. Rx's sent to anticipate any auth issues. 11/24/21: 1 more day of Invega 6 mg with plan for loading injection 234 mg on 11/26/21. Oral will continue until after 2nd loading dose 156 mg per ACT team as outpatient 11/30 or 12/01/21. 11/23/21: patient is tolerating PO Invega in anticipation of FIERRO as adjunct to clozaril given compliance hx when living independently. Increase to Invega 6 mg in am. Finger foods diet as prefers sandwiches, etc. 11/22/21: agreed to Invega trial after meeting with ACT team and daughters. 11/21/21: Remeron 15 mg hs for ease of dosing, add back 50 mg Clozaril but give evening meal as am was sedating. 11/20/21: will keep clozaril at 200 mg his hs but earlier dose time. PO best for evening meal. communicate with ACT team 11/21 when office reopens. 11/19/21: hold am clozaril tomorrow and consider shift to 250 mg hs. input from daughter re: baseline and level of support that family can provide when returns home. 11/18/21: continue current meds and tx plan. 11/17/21: The patient was admitted to the [facility] on q15 min checks (behavioral with suicide precautions) for safety. The patient will participate in group, recreational, and milieu therapies and will be offered additional individual and family sessions as clinically appropriate. -Reviewed ANC from 11/14/21, continue clozapine 50mg qAM & 200mg qhs -Fasting lipid panel, glucose qAM and clozapine level qhs before evening dose -Continue Effexor XR 300mg qd and mirtazapine 7.5 mg qhs (could consider increasing in coming days if appetite/po intake remains low) -Continue thiamine/folic acid/MVM given recent poor po intake -Continue simvastatin -bowel meds prn Inventory Assets Strengths: supportive family, willing to seek treatment, has housing, lots of outpatient services Needs: additional coping skills, increased po intake, medication adjustments/monitoring Suicide Risk Level Suicide Risk Level: Low (q15 min observation checks) Risk Factors Assessment Male: Yes : Yes Do You Have Access To A Gun?: No Health Problems: Yes Mental Health Diagnoses: Yes Previous Attempt: No Previous Psychiatric Hospitalization: Yes Hopelessness: Yes Protective Factors Assessment Stable Relationships: Yes Supportive Family: Yes Good Rapport with Provider: Yes Interval History Identifying Information FERNIE GASPAR is a 66-year-old man who currently lives in [place] alone, has a history of schizoaffective disorder, and was admitted on 11/17/21 12:26 on a 201 voluntary commitment for worsening auditory hallucinations and depression with poor po intake on transfer from medical floor. Chief Complaint "I'm actually feeling pretty good about things". Review of Systems Sleep Information Total Hours of Sleep: 8.25 Sleep Comments: pt on q-15 minute checks Meal Information Percent Meal Consumed - Breakfast: 0 Percent Meal Consumed - Lunch: 75 Percent Meal Consumed - Dinner: 75 Subjective Subjective Patient was seen & assessed and interval progress reviewed with treatment nursing and social work. has appeared more spontaneous in groups. Denies side effects from Invega and still agreeable to shot. Physical Exam Psychiatric Orientation: alert and oriented x 3 Apperance: appropriately dressed Eye Contact: + fair eye contact Motor Behavior: no abnormal motor movements Speech: normal rate/rhythm/volume of speech (brief, non-spontaneous) Affect: + flat affect Mood: no depressed mood Thought Process: + concrete thought process Thought Content: reality based without delusions Suicidal Thoughts: denies suicidal thoughts Homicidal Thoughts: denies homicidal thoughts Hallucinations: no auditory hallucinations and no visual hallucinations Cognition: recent memory grossly intact, remote memory grossly intact, attention grossly intact and language grossly intact Insight: + limited insight Judgement: + limited judgement Vital Signs (Past 24 Hours) Last Vital Signs Temp 36.4 C L 11/25/21 06:38 Pulse 83 11/25/21 06:39 Resp 18 11/25/21 06:38 BP 123/74 11/25/21 06:39 Pulse Ox 97 11/20/21 06:00 Results & Data ([facility]) Current Inpatient Medications Current Inpatient Medications: Current Inpatient Medications Acetaminophen (Acetaminophen 325 Mg Tab) 650 mg PO Q4H PRN PRN Reason: Headache or Minor Fever Stop: 12/17/21 12:25 Al Hydrox/Mg Hydrox/Simethicone (Aluminum/Magnesium Susp 30 Ml Udc) 30 ml PO Q4H PRN PRN Reason: GI Upset Stop: 12/17/21 12:25 Benztropine Mesylate (Benztropine Mesylate 1 Mg Tab) 1 mg PO Q6 PRN PRN Reason: dystonia Stop: 12/23/21 13:39 Bismuth Subsalicylate (Bismuth Subsalicylate Liqd 236 Ml) 15 ml PO PRN PRN PRN Reason: Loose Stool Stop: 12/17/21 12:25 Clozapine (Clozapine 100 Mg Tab) 200 mg PO DAILY@1999 [facility] Stop: 12/20/21 19:59 Last Admin: 11/24/21 20:10 Dose: 200 mg Documented by: Clozapine (Clozapine 25 Mg Tab) 50 mg PO DAILYBD [facility] Stop: 12/21/21 17:14 Last Admin: 11/24/21 17:01 Dose: 50 mg Documented by: Docusate Sodium (Docusate Sodium 100 Mg Cap) 100 mg PO BID PRN PRN Reason: Constipation Stop: 12/17/21 20:59 Folic Acid (F[facility] Acid 1 Mg Tab) [facility] Stop: 12/18/21 08:59 Last Admin: 11/25/21 08:49 Dose: 1 mg Documented by: Lorazepam (Lorazepam 0.5 Mg Tab) 0.5 mg PO Q4 PRN PRN Reason: Anxiety Stop: 12/21/21 12:40 Magnesium Hydroxide (Magnesium Hydroxide Susp 30 Ml Udc) 30 ml PO DAILY PRN PRN Reason: Constipation Stop: 12/17/21 12:25 Mirtazapine (Mirtazapine Tab 15 Mg Tab) 15 mg PO DAILY@1999 [facility] Stop: 12/21/21 19:59 Last Admin: 11/24/21 20:10 Dose: 15 mg Documented by: Multivitamins (Multivitamin Tab) [facility] Stop: 12/18/21 08:59 Last Admin: 11/25/21 08:49 Dose: 1 tab Documented by: Paliperidone (Paliperidone 3 Mg Tabcr) [facility] Stop: 12/24/21 08:59 Last Admin: 11/25/21 08:50 Dose: 6 mg Documented by: Paliperidone Palmitate (Paliperidone Palmitate 234 Mg/1.5 Ml Syr) 234 mg IM ONE ONE Stop: 11/26/21 08:01 Simvastatin (Simvastatin 40 Mg Tab) 40 mg PO Q24H [facility] Stop: 12/20/21 19:59 Last Admin: 11/24/21 20:10 Dose: 40 mg Documented by: Sodium Chloride (Sodium Chloride 0.65% Na Soln 45 Ml ([place])) 1 - 2 sprays NA PRN PRN PRN Reason: Nasal Dryness/Congestion Stop: 12/17/21 12:25 Thiamine HCl (Thiamine Hcl 100 Mg Tab) [facility] Stop: 12/18/21 08:59 Last Admin: 11/25/21 08:51 Dose: 100 mg Documented by: Venlafaxine HCl (Venlafaxine Hcl Xr 150 Mg Capxr) 300 mg PO [facility] Stop: 12/18/21 08:59 Last Admin: 11/25/21 08:52 Dose: 300 mg Documented by: Mental Health & Subst Abuse Tx Psychiatrist Name of Psychiatrist: [facility] Psychiatrist's Psychiatric Appointment Comment: [address] [place] [address] Therapist Name of Therapist: [facility] Therapist's Therapy Appointment Comment: [address] [place] [address] Quality Assurance Lead Name of Quality Assurance Lead: ACT Team in [facility] Phone Number for Quality Assurance Lead: [phone] Case Management Appointment Comment: [address] [place] [address] Post Discharge Appointments Primary Care Physician Name Of Family Doctor: [facility] Primary Care Provider Appointment Comment: [address] [place] [address]
[2021-11-25] MEDS: cloZAPine 25 MG TAB PO SCH (17:41)
[2021-11-25] MEDS: cloZAPine 100 MG TAB PO SCH (20:25)
[2021-11-25] MEDS: MIRTAZAPINE TAB 15 MG TAB PO SCH (20:25)
[2021-11-25] MEDS: SIMVASTATIN 40 MG TAB PO SCH (20:25)
[2021-11-26] MEDS ORDERED: PALIPERIDONE PALMITATE 234 MG/1.5 ML SYR IM ONE (08:00)
--- NOTE | 2021-11-26 08:58 | Psychiatric Progress Note ---
Date of Service November 26, 2021 Impression / Recommendations Impression 66 yo man with history of schizoaffective disorder presents for worsening depression with decreased po intake and self-care in the context of worsening command auditory hallucinations causing him to stop his psychiatric medications and recent complicated UTI. Diagnostically consistent with acute exacerbation of schizoaffective disorder and MDD, recurrent with likely contribution from possible delirium with recent UTI. 11/26/21: benefiting from augmentation of clozaril. (1) Schizoaffective disorder: (2) MDD (major depressive disorder), recurrent episode: 11/26/21: decrease Invega to 3 mg until 2nd loading injection. Anticipated discharge to family in am. 11/25/21: updated clozaril [facility]S ([id number]) in anticipation of discharge. Rx's sent to anticipate any auth issues. 11/24/21: 1 more day of Invega 6 mg with plan for loading injection 234 mg on 11/26/21. Oral will continue until after 2nd loading dose 156 mg per ACT team as outpatient 11/30 or 12/01/21. 11/23/21: patient is tolerating PO Invega in anticipation of FIERRO as adjunct to clozaril given compliance hx when living independently. Increase to Invega 6 mg in am. Finger foods diet as prefers sandwiches, etc. 11/22/21: agreed to Invega trial after meeting with ACT team and daughters. 11/21/21: Remeron 15 mg hs for ease of dosing, add back 50 mg Clozaril but give evening meal as am was sedating. 11/20/21: will keep clozaril at 200 mg his hs but earlier dose time. PO best for evening meal. communicate with ACT team 11/21 when office reopens. 11/19/21: hold am clozaril tomorrow and consider shift to 250 mg hs. input from daughter re: baseline and level of support that family can provide when returns home. 11/18/21: continue current meds and tx plan. 11/17/21: [facility] on q15 min checks (behavioral with suicide precautions) for safety. The patient will participate in group, recreational, and milieu therapies and will b e offered additional individual and family sessions as clinically appropriate. -Reviewed ANC from 11/14/21, continue clozapine 50mg qAM & 200mg qhs -Fasting lipid panel, glucose qAM and clozapine level qhs before evening dose -Continue Effexor XR 300mg qd and mirtazapine 7.5 mg qhs (could consider increasing in coming days if appetite/po intake remains low) -Continue thiamine/folic acid/MVM given recent poor po intake -Continue simvastatin -bowel meds prn Inventory Assets Strengths: supportive family, willing to seek treatment, has housing, lots of outpatient services Needs: additional coping skills, increased po intake, medication adjustments/monitoring Suicide Risk Level Suicide Risk Level: Low (q15 min observation checks) Risk Factors Assessment Male: Yes : Yes Do You Have Access To A Gun?: No Health Problems: Yes Mental Health Diagnoses: Yes Previous Attempt: No Previous Psychiatric Hospitalization: Yes Hopelessness: Yes Protective Factors Assessment Stable Relationships: Yes Supportive Family: Yes Good Rapport with Provider: Yes Interval History Identifying Information FERNIE GASPAR is a 66-year-old man who currently lives in [place] alone, has a history of schizoaffective disorder, and was admitted on 11/17/21 12:26 on a 201 voluntary commitment for worsening auditory hallucinations and depression with poor po intake on transfer from medical floor. Chief Complaint "I'm good" Review of Systems Sleep Information Total Hours of Sleep: 9 Sleep Comments: pt on q-15 minute checks Meal Information Percent Meal Consumed - Breakfast: 0 Percent Meal Consumed - Lunch: 75 Percent Meal Consumed - Dinner: 50 Subjective Subjective Patient was seen & assessed and interval progress reviewed with nursing and social work. Cooperative with safety planning. Cooperative with 1st loading injection. Physical Exam Psychiatric Orientation: alert and oriented x 3 Apperance: appropriately dressed Eye Contact: + fair eye contact Motor Behavior: no abnormal motor movements Speech: normal rate/rhythm/volume of speech Mood: no depressed mood Thought Process: + concrete thought process Thought Content: reality based without delusions Suicidal Thoughts: denies suicidal thoughts Homicidal Thoughts: denies homicidal thoughts Hallucinations: no auditory hallucinations and no visual hallucinations Cognition: attention grossly intact and language grossly intact Vital Signs (Past 24 Hours) Last Vital Signs Temp 36.4 C L 11/26/21 07:00 Pulse 88 11/26/21 07:00 Resp 18 11/26/21 07:00 BP 132/69 11/26/21 07:00 Pulse Ox 97 11/20/21 06:00 Results & Data ([facility]) Current Inpatient Medications Current Inpatient Medications: Current Inpatient Medications Acetaminophen (Acetaminophen 325 Mg Tab) 650 mg PO Q4H PRN PRN Reason: Headache or Minor Fever Stop: 12/17/21 12:25 Al Hydrox/Mg Hydrox/Simethicone (Aluminum/Magnesium Susp 30 Ml Udc) 30 ml PO Q4H PRN PRN Reason: GI Upset Stop: 12/17/21 12:25 Benztropine Mesylate (Benztropine Mesylate 1 Mg Tab) 1 mg PO Q6 PRN PRN Reason: dystonia Stop: 12/23/21 13:39 Bismuth Subsalicylate (Bismuth Subsalicylate Liqd 236 Ml) 15 ml PO PRN PRN PRN Reason: Loose Stool Stop: 12/17/21 12:25 Clozapine (Clozapine 100 Mg Tab) 200 mg PO DAILY@1999 [facility] Stop: 12/20/21 19:59 Last Admin: 11/25/21 20:25 Dose: 200 mg Documented by: Clozapine (Clozapine 25 Mg Tab) 50 mg PO DAILYBD [facility] Stop: 12/21/21 17:14 Last Admin: 11/25/21 17:41 Dose: 50 mg Documented by: Docusate Sodium (Docusate Sodium 100 Mg Cap) 100 mg PO BID PRN PRN Reason: Constipation Stop: 12/17/21 20:59 Folic Acid (Folic Acid 1 Mg Tab) [facility] Stop: 12/18/21 08:59 Last Admin: 11/25/21 08:49 Dose: 1 mg Documented by: Lorazepam (Lorazepam 0.5 Mg Tab) 0.5 mg PO Q4 PRN PRN Reason: Anxiety Stop: 12/21/21 12:40 Magnesium Hydroxide (Magnesium Hydroxide Susp 30 Ml Udc) 30 ml PO DAILY PRN PRN Reason: Constipation Stop: 12/17/21 12:25 Mirtazapine (Mirtazapine Tab 15 Mg Tab) 15 mg PO DAILY@1999 [facility] Stop: 12/21/21 19:59 Last Admin: 11/25/21 20:25 Dose: 15 mg Documented by: Multivitamins (Multivitamin Tab) 1 [facility] Stop: 12/18/21 08:59 Last Admin: 11/25/21 08:49 Dose: 1 tab Documented by: Paliperidone (Paliperidone 3 Mg Tabcr) 6 mg PO QAM [facility] Stop: 12/24/21 08:59 Last Admin: 11/25/21 08:50 Dose: 6 mg Documented by: Simvastatin (Simvastatin 40 Mg Tab) 40 mg PO Q24H [facility] Stop: 12/20/21 19:59 Last Admin: 11/25/21 20:25 Dose: 40 mg Documented by: Sodium Chloride (Sodium Chloride 0.65% Na Soln 45 Ml ([place])) 1 - 2 sprays NA PRN PRN PRN Reason: Nasal Dryness/Congestion Stop: 12/17/21 12:25 Thiamine HCl (Thiamine Hcl 100 Mg Tab) 100 mg PO QAM [facility] Stop: 12/18/21 08:59 Last Admin: 11/25/21 08:51 Dose: 100 mg Documented by: Venlafaxine HCl (Venlafaxine Hcl Xr 150 Mg Capxr) 300 mg PO QAM [facility] Stop: 12/18/21 08:59 Last Admin: 11/25/21 08:52 Dose: 300 mg Documented by: Mental Health & Subst Abuse Tx Psychiatrist Name of Psychiatrist: [facility] Psychiatrist's Psychiatric Appointment Comment: [address] [place] [address] Therapist Name of Therapist: [facility] Therapist's Therapy Appointment Comment: [address] [place] [address] Dandy Tender Name of Dandy Tender: ACT Team in [facility] Phone Number for Dandy Tender: [phone] Case Management Appointment Comment: [address] [place] [address] Post Discharge Appointments Primary Care Physician Name Of Family Doctor: [facility] Primary Care Provider Appointment Comment: [address] [place] [address]
[2021-11-26] MEDS: FOLIC ACID 1 MG TAB PO SCH (09:47)
[2021-11-26] MEDS: PALIPERIDONE 3 MG TABCR PO SCH (09:47)
[2021-11-26] MEDS: MULTIVITAMIN TAB PO SCH (09:47)
[2021-11-26] MEDS: THIAMINE HCL 100 MG TAB PO SCH (09:48)
[2021-11-26] MEDS: VENLAFAXINE HCL XR 150 MG CAPXR PO SCH (09:48)
--- NOTE | 2021-11-26 12:00 | Discharge Summary ---
Date of Service November 27, 2021 (early entry on 11/26/21) History of Present Illness Cassius presents for worsening command auditory hallucinations and depression in the context of schizoaffective disorder. For many years, especially since age 48, he has experienced chronic auditory hallucinations which at times become command in nature and instruct him not to take his medications or not to care for himself and the voices threaten that if he doesnt listen to the voices or talks about them then someone he cares about will . Sometimes the voices also tell him not to eat or drink. About two weeks ago in this context he stopped his medications for about 5 days and the voices became increasingly intense and he became depressed to the point of not eating or drinking or caring for his self- needs. He was taken to his local hospital in [facility] and referred to the [facility] for inpatient psychiatry but on arrival for psychiatric intake he was found to be confused and with urinary retention concerning for acute delirium and UTI and admitted medically at [facility]. Since 11/08/2021 he has been admitted medically and received treatment for a UTI and IV fluids. His medications of clozapine, Effexor ER and mirtazapine were continued. Recently changed in frequently of now getting his ANC checked monthly for clozapine. Today Cassius reports ongoing depression with decreased appetite, low energy, decreased motivation, anhedonia, decreased sleep and hopelessness. He denies SI. He continues to have very limited po intake even with encouragement from nursing staff on the medical floor requiring IV fluids and potassium supplementation. Cassius endorses ongoing auditory hallucinations but becomes uncomfortable discussing the nature of the voices noting I cant get into all that. He denies any current medication side effects. He denies HI. Psychiatric ROS notable for history of alcohol use for which folic acid and thiamine was started on the medical floor but he never scored on AWSS or required any treatment for withdrawal symptoms. He denies any excessive alcohol use though cannot specifically quantify recent use for me. He cannot identify any history of sindy but chart review of outside records notable for schizoaffective disorder diagnosis, seems predominantly depressive episodes. History of visual hallucinations per outside records, none currently. Physical Exam Psychiatric See admission H&P and DOD assessment. Vital Signs (Past 24 Hours) Last Vital Signs Temp 36.4 C L 11/26/21 07:00 Pulse 88 11/26/21 07:00 Resp 18 11/26/21 07:00 BP 132/69 11/26/21 07:00 Pulse Ox 97 11/20/21 06:00 Principal Diagnosis schizophrenia Psychiatric Data See daily stay summary. In short, safety was maintained and the patient was cooperative with care. Medication changes included titration of Remeron and addition of Invega with initiation of Invega sustenna 1st loading dose and they tolerated this well. A family session was held with the patient's daughters and his ACT long line teamster. A safety plan was completed prior to discharge. Day of Discharge Assessment Cassius was seen within 24 hrs of discharge and voiced readiness for discharge. They noted improvement in mood and denied thoughts to harm self or others. Thoughts remain organized and they are improved from admission. There is no evidence of psychosis. They agree to take mediations as prescribed and keep follow-up appointments. They are stable for discharge to outpatient level of care. Transition of Care Transition Of Care Record: was reviewed with the patient Advance Directives Advance Directives Information Provided: No Advance Directives: No Mental Health Advance Directive: Yes (Pam dumont) Advance Directives on File: No Living Will: No Power of Senior Chemical Process Engineer: Yes Power of Senior Chemical Process Engineer Name: Pt's Pam dumont Advance Directives Reason:: Declines as Mental Health Visit. Suicide Risk Level Suicide Risk Level Comments: Suicide risk at discharge is deemed low as the patient is no longer requiring 24-hr monitoring, has a safety plan, and is free of suicidal ideation at discharge. Risk Factors Assessment Male: Yes : Yes Do You Have Access To A Gun?: No Health Problems: Yes Mental Health Diagnoses: Yes Previous Attempt: No Previous Psychiatric Hospitalization: Yes Hopelessness: Yes Protective Factors Assessment Stable Relationships: Yes Supportive Family: Yes Good Rapport with Provider: Yes Tobacco Cessation at Discharge Tobacco Cessation Medication Prescribed at Discharge: Not Applicable/Non-Smoker Antipsychotic Medications The patient is continuing 2 antipsychotics due to: Augmentation of clozapine Total Time Total Time Spent: Less Than 30 Minutes Total Time Includes: Examination of the patient, Discharge Planning and Medicat ion Reconciliation Discharge Data Lab Results 11/17/21 11/17/21 11/19/21 20:04 Unknown 09:01 WBC RBC Hgb Hct MCV MCH MCHC RDW Std Deviation RDW Coeff of Mai Plt Count MPV Immature Gran % (Auto) Neut % (Auto) Lymph % (Auto) [place] % (Auto) Eos % (Auto) Baso % (Auto) Neut # (Auto) Lymph # (Auto) [place] # (Auto) Eos # (Auto) Baso # (Auto) Immature Gran # (Auto) Absolute Nucleated RBC Nucleated RBC % (auto) Neutrophils % (Manual) Band Neutrophils % Lymphocytes % (Manual) Prolymphocyte % Reactive Lymphs % (Man) Monocytes % (Manual) Eosinophils % (Manual) Basophils % (Manual) Metamyelocytes % (Man) Myelocytes % (Man) Promyelocytes % (Man) Blast Cells % (Manual) Plasma Cell % (Manual) Other Cells % Nucleated RBC % Neutrophils # (Manual) Band Neutrophils # Total Absolute Neuts Lymphocytes # (Manual) Prolymphocyte # Reactive Lymphs # Total Abs Lymphocytes Monocytes # (Manual) Eosinophils # (Manual) Basophils # (Manual) Metamyelocytes # (Man) Myelocytes # (Manual) Promyelocytes # (Man) Blast Cells # (Man) Plasma Cell # (Manual) Other Cells # Nucleated RBCs # (Man) Hypersegmented Neuts Hyposegmented Neuts Hypogranular Neuts Large Granular Lymphs # Lrg Granular Lymphs Hairy Cells Smudge Cells Toxic Granulation Toxic Vacuolation Dohle Bodies Lalo Rods Platelet Estimate Hypogranular Platelets Clumped Platelets Giant Platelets Platelet Satelliting RBC Morphology Polychromasia Hypochromasia Poikilocytosis Basophilic Stippling Anisocytosis Microcytosis Macrocytosis Spherocytes Pappenheimer Bodies Sickle Cells Target Cells Tear Drop Cells Ovalocytes Stomatocytes Chung-Marrowstone Bodies Echinocytes Acanthocytes (Spur) Rouleaux RBC Agglutinates Schistocytes Sezary Cell Fasting Glucose 102 H Triglycerides 141 Cholesterol 134 LDL Cholesterol, Calc 81 VLDL Cholesterol, Calc 28 HDL Cholesterol 25 Cholesterol/HDL Ratio 5.4 H Clozapine 440 Norclozapine 350 SARS-CoV-2, RNA, NAAT NEGATIVE 11/21/21 11/22/21 13:00 09:38 WBC Cancelled 5.03 RBC Cancelled 5.19 Hgb Cancelled 15.6 Hct Cancelled 47.0 MCV Cancelled 90.6 MCH Cancelled 30.1 MCHC Cancelled 33.2 RDW Std Deviation Cancelled 42.5 RDW Coeff of Mai Cancelled 12.8 Plt Count Cancelled 288 MPV Cancelled 10.6 Immature Gran % (Auto) Cancelled 0.4 Neut % (Auto) Cancelled 59.6 Lymph % (Auto) Cancelled 24.5 [place] % (Auto) Cancelled 8.3 Eos % (Auto) Cancelled 6.2 Baso % (Auto) Cancelled 1.0 Neut # (Auto) Cancelled 3.00 Lymph # (Auto) Cancelled 1.23 [place] # (Auto) Cancelled 0.42 Eos # (Auto) Cancelled 0.31 Baso # (Auto) Cancelled 0.05 Immature Gran # (Auto) Cancelled 0.02 Absolute Nucleated RBC Cancelled Nucleated RBC % (auto) Cancelled Neutrophils % (Manual) Cancelled Band Neutrophils % Cancelled Lymphocytes % (Manual) Cancelled Prolymphocyte % Cancelled Reactive Lymphs % (Man) Cancelled Monocytes % (Manual) Cancelled Eosinophils % (Manual) Cancelled Basophils % (Manual) Cancelled Metamyelocytes % (Man) Cancelled Myelocytes % (Man) Cancelled Promyelocytes % (Man) Cancelled Blast Cells % (Manual) Cancelled Plasma Cell % (Manual) Cancelled Other Cells % Cancelled Nucleated RBC % Cancelled Neutrophils # (Manual) Cancelled Band Neutrophils # Cancelled Total Absolute Neuts Cancelled Lymphocytes # (Manual) Cancelled Prolymphocyte # Cancelled Reactive Lymphs # Cancelled Total Abs Lymphocytes Cancelled Monocytes # (Manual) Cancelled Eosinophils # (Manual) Cancelled Basophils # (Manual) Cancelled Metamyelocytes # (Man) Cancelled Myelocytes # (Manual) Cancelled Promyelocytes # (Man) Cancelled Blast Cells # (Man) Cancelled Plasma Cell # (Manual) Cancelled Other Cells # Cancelled Nucleated RBCs # (Man) Cancelled Hypersegmented Neuts Cancelled Hyposegmented Neuts Cancelled Hypogranular Neuts Cancelled Large Granular Lymphs Cancelled # Lrg Granular Lymphs Cancelled Hairy Cells Cancelled Smudge Cells Cancelled Toxic Granulation Cancelled Toxic Vacuolation Cancelled Dohle Bodies Cancelled Lalo Rods Cancelled Platelet Estimate Cancelled Hypogranular Platelets Cancelled Clumped Platelets Cancelled Giant Platelets Cancelled Platelet Satelliting Cancelled RBC Morphology Cancelled Polychromasia Cancelled Hypochromasia Cancelled Poikilocytosis Cancelled Basophilic Stippling Cancelled Anisocytosis Cancelled Microcytosis Cancelled Macrocytosis Cancelled Spherocytes Cancelled Pappenheimer Bodies Cancelled Sickle Cells Cancelled Target Cells Cancelled Tear Drop Cells Cancelled Ovalocytes Cancelled Stomatocytes Cancelled Chung-Marrowstone Bodies Cancelled Echinocytes Cancelled Acanthocytes (Spur) Cancelled Rouleaux Cancelled RBC Agglutinates Cancelled Schistocytes Cancelled Sezary Cell Cancelled Fasting Glucose Triglycerides Cholesterol LDL Cholesterol, Calc VLDL Cholesterol, Calc HDL Cholesterol Cholesterol/HDL Ratio Clozapine Norclozapine SARS-CoV-2, RNA, NAAT Hospital Course (1) Schizoaffective disorder: (2) MDD (major depressive disorder), recurrent episode: 11/26/21: decrease Invega to 3 mg until 2nd loading injection. Anticipated discharge to family in am. 11/25/21: updated clozaril REMS ([id number]) in anticipation of discharge. Rx's sent to anticipate any auth issues. 11/24/21: 1 more day of Invega 6 mg with plan for loading injection 234 mg on 11/26/21. Oral will continue until after 2nd loading dose 156 mg per ACT team as outpatient 11/30 or 12/01/21. 11/23/21: patient is tolerating PO Invega in anticipation of FIERRO as adjunct to clozaril given compliance hx when living independently. Increase to Invega 6 mg in am. Finger foods diet as prefers sandwiches, etc. 11/22/21: agreed to Invega trial after meeting with ACT team and daughters. 11/21/21: Remeron 15 mg hs for ease of dosing, add back 50 mg Clozaril but give evening meal as am was sedating. 11/20/21: will keep clozaril at 200 mg his hs but earlier dose time. PO best for evening meal. communicate with ACT team 11/21 when office reopens. 11/19/21: hold am clozaril tomorrow and consider shift to 250 mg hs. input from daughter re: baseline and level of support that family can provide when returns home. 11/18/21: continue current meds and tx plan. 11/17/21: The patient was [facility]) on q15 min checks (behavioral with suicide precautions) for safety. The patient will participate in group, recreational, and milieu therapies and will be offered additional individual and family sessions as clinically appropriate. -Reviewed ANC from 11/14/21, continue clozapine 50mg qAM & 200mg qhs -Fasting lipid panel, glucose qAM and clozapine level qhs before evening dose -Continue Effexor XR 300mg qd and mirtazapine 7.5 mg qhs (could consider increasing in coming days if appetite/po intake remains low) -Continue thiamine/folic acid/MVM given recent poor po intake -Continue simvastatin -bowel meds prn Mental Health & Subst Abuse Tx Psychiatrist Name of Psychiatrist: [facility] Psychiatrist's Psychiatric Appointment Comment: [address] [place] [address] Therapist Name of Therapist: [facility] ACT Therapist's Therapy Appointment Comment: [address] [place] [address] Outpatient Receptionist Name of Outpatient Receptionist: ACT Team in [facility] Phone Number for Outpatient Receptionist: [phone] Case Management Appointment Comment: [address] [place] [address] Post Discharge Appointments Primary Care Physician Name Of Family Doctor: [facility] Primary Care Provider Appointment Comment: [address] [place] [address] Smoking Cessation Counseling Tobacco Cessation Medication Prescribed at Discharge: Not Applicable/Non-Smoker Discharge Plan Discharge Items Patient Disposition: Home - Self-Care Reason For Visit: SCHIZOPHRENIA Discharge Diagnosis: schizophrenia Activity: Resume your previous activity Non-emergency contact: Primary Care Provider Call non-emergency contact if: you have any medication questions and your symptoms worsen Follow-up/Referrals: PCP,NO [Primary Care Provider] - Diet: Regular Addtl Attending Provider Instructions: You will be do for your second Invega sustenna shot on 11/30 or 12/01 per the ACT nurse. ACT provide samples. SPECIAL CARE INSTRUCTIONS: 1. Follow through with your scheduled aftercare appointments. If unable to keep an appointment, please call to reschedule. 2. Take your medication only as prescribed. Medication should not be changed or stopped without the approval of your doctor. In the event of worsening symptoms or concerns about side effects, contact your doctor immediately. 3. Utilize new healthy coping skills, anger management skills, and stress management skills learned during your hospitalization. Journal feelings and process them with a support person. Identify stressors or situations that may result in relapse, deterioration or inappropriate behaviors and develop a plan to deal with those issues. 4. If your coping skills are ineffective and you are in crisis, contact your outpatient providers for direction. If unable to reach your providers, please call the [facility] CRISIS LINE AT , go to the [facility] walk-in center at [address], [address], [place], or go to the closest Emergency Room. 5. Avoid alcohol and un-prescribed drugs. 6. You have been provided with the Mental Health Advance Directives Pamphlet for your review. 7. Your condition is stable for discharge to outpatient level of care, but recovery is an ongoing process. Ifthoughts to harm yourself or others return, follow the safety plan developed during your stay. Planning for a safe return home includes securing weapons. Our treatment team recommends weaponsbe removed from the home until your outpatient provider reassesses your progress. In rare cases where the items themselvescannot be removed, guns and ammunitionshould be secured separatelyand keys stored by a reliable personoutside of the home. If you were admitted on an involuntary commitment, the police or other legal authorities may be involved in this process. AFTERCARE APPOINTMENTS: * Please call your insurance company prior to your scheduled appointment to confirm your aftercare providers are covered. Take your insurance information to your appointments. WHO TO CALL AND WHEN: Medical Emergencies: For questions or emergencies related to your hospital stay, please contact the Inpatient Behavioral Health Unit at [phone]. A program supervisor is on-call 10/12 for the Behavioral Health Unit for emergencies At any time you feel your situation is an emergency, you may also call 911 immediately. Pending Studies at Discharge: Yes (monthly CBC with your regular psychiatrist by 12/22/21.) Stand-Alone Forms: My [facility] [address], Smoking Cessation Medications and DC Order Prescriptions: New clozapine 100 mg Tablet 200 mg PO DAILY@1999 30 Days Qty: 60 RF: 0 mirtazapine 15 mg Tablet 15 mg PO DAILY@1999 Qty: 30 RF: 0 clozapine [Clozaril] 25 mg Tablet 50 mg PO DAILYBD 30 Days Qty: 60 RF: 0 paliperidone [Invega] 3 mg Tablet Extended Release 24 Hr 3 mg PO QAM 5 Days Qty: 5 RF: 0 Invega Sustenna 156 mg/mL syringe 156 mg IM Q30D Qty: 1 RF: 0 Continued folic acid 1 mg tablet 1 mg PO QAM 30 Days Qty: 30 RF: 0 multivitamin with folic acid [Tab-A-Kimberley] 400 mcg tablet 1 tab PO QAM 30 Days Qty: 30 RF: 0 venlafaxine 150 mg capsule,extended release 24hr 300 mg PO QAM 30 Days Qty: 60 RF: 0 thiamine HCl (vitamin B1) 100 mg tablet 100 mg PO QAM 30 Days Qty: 30 RF: 0 simvastatin 20 mg tablet 40 mg PO HS 30 Days Qty: 60 RF: 0 Discontinued clozapine 100 mg tablet 200 mg PO HS RF: 0 hydroxyzine HCl 50 mg tablet 50 mg PO QID PRN (Reason: Anxiety) RF: 0 simvastatin 20 mg tablet 40 mg PO HS RF: 0 mirtazapine 7.5 mg tablet 7.5 mg PO HS RF: 0 clozapine 50 mg tablet 50 mg PO QAM RF: 0 Discharge Orders: Discharge Order (Routine); Ordered 11/27/21 Ordered By: Taylor Aquino Admission Data Admit Date/Time: 11/17/21 12:26 Attending Provider: Taylor Aquino Admit Provider: Tawana Meyer Primary Care Provider: PCP,NO Other Interventions: PSY Interdisciplinary Discharge Planning Last Done: 11/21/21 12:20 Coding Level of Care Code 95955 D/C day mgmt > 30 min Diagnoses Schizoaffective disorder F25.9 MDD (major depressive disorder), recurrent episode F33.9
[2021-11-26] MEDS: cloZAPine 25 MG TAB PO SCH (17:53)
[2021-11-26] MEDS: SIMVASTATIN 40 MG TAB PO SCH (20:18)
[2021-11-26] MEDS: cloZAPine 100 MG TAB PO SCH (20:18)
[2021-11-26] MEDS: MIRTAZAPINE TAB 15 MG TAB PO SCH (20:18)
[2021-11-27] MEDS: FOLIC ACID 1 MG TAB PO SCH (08:28)
[2021-11-27] MEDS: MULTIVITAMIN TAB PO SCH (08:29)
[2021-11-27] MEDS: THIAMINE HCL 100 MG TAB PO SCH (08:29)
[2021-11-27] MEDS: VENLAFAXINE HCL XR 150 MG CAPXR PO SCH (08:29)
[2021-11-27] MEDS ORDERED: PALIPERIDONE 3 MG TABCR PO SCH (09:00)
--- NOTE | 2021-11-27 16:45 | Pharmacy Report ---
ED Pharmacist Progress Note - ED Pharmacist Progress Note Date of Service:: November 27, 2021 Notes:: * Received call from Thea RN, on [facility]. Stated patient was at [facility] pharmacy in [place] and couldn't received Clozaril due to lab work needed. Spoke with Bucky, Pharmacist, at [facility] who provided me with fax number: [phone], read back x 1. Faxed over ANC from 11/22/21. Fax confirmation received at [phone].
== END 2021-11-27 12:13 | disposition home or self-care (01) | DRG 885 ==
LOC: SUATTDRO 12:26 → 3S 12:26